=== PATIENT | male | born 1945 | race Caucasian/White ===

== ENCOUNTER → 2017-07-27 | Outpatient (CLI) | payer MEDICARE, BC ==
[~2017-07-27] MED LIST: ATENOLOL25 MG PO; ATORVASTATIN CA40 MG PO; BENICAR HCT 401 EAC1 PO; FLUTICASONE PRO16 GM; GLIPIZIDE10 MG PO; LOSARTAN POTAS100 MG PO; METFORMIN HCL1000 MG; METFORMIN HCL1000 MG PO; MONTELUKAST SOD10 MG PO; OMEPRAZOLE20 M1 PO; PENTASA500 MG PO; RANEXA1000 MG PO; RANEXA500 MG PO; VERAPAMIL ER120 MG PO; XANAX0.5 MG PO; XARELTO20 MG PO; ZOLPIDEM TARTRA10 MG PO; [UNRECOGNIZED DRUG - OTHER]; [UNRECOGNIZED DRUG - OTHER] PO; eliquis PO
--- NOTE | 2017-07-27 16:27 | Diagnostic Imaging Report ---
PROCEDURE: CT CHEST WITHOUT CONTRAST CT scan of the chest WITHOUT intravenous contrast, using standard protocol. TECHNIQUE: The chest was scanned utilizing a multidetector helical scanner from the apex to the level of the adrenal glands. No IV contrast was administered. Coronal and sagittal multiplanar reformations were obtained. COMPARISON: 02/13/2017 INDICATIONS: FOLLOW UP OTHER DISORDERS OF THE LUNG FINDINGS: Lines/tubes: None. Lungs and Airways: Small, calcified granulomas in the right lung (images 50 and 61) are stable. A 4 mm triangular nodule along the right major fissure and 63), is unchanged and likely represents a benign lymph node. A 3 mm nodule in the right lung apex (series 3, image 29) has been present since at least 08/31/2015 and is unchanged. Subtle groundglass opacity in the left upper lobe (series 3, image 38) measures approximately 1.4 x 0.8 cm, unchanged since at least 02/13/2017, possibly unchanged since 08/31/2015. Subtle groundglass opacity, also in the left upper lobe (series 3, image 53) measures 0.7 x 0.6 cm and may correspond to the lesion described on the prior CT. Previously described subpleural groundglass opacity in the superior segment of the left lower lobe (series 3, image 52) measures 8 mm, unchanged. This may represent focal atelectasis. 2 mm left lower lobe nodule (series 3, image 69), unchanged. 3 mm subpleural nodule left lower lobe, also unchanged Linear, subpleural opacities in the left lung apex (series 3, images 24 and 17) are unchanged Pleura: The pleural spaces are clear. Heart and mediastinum: The thyroid gland is normal. No significant mediastinal, hilar or axillary lymphadenopathy is seen. Normal size heart. No pericardial effusion. Coronary artery calcifications and/or stent. Soft tissues: Normal. Abdomen: Limited views of the upper abdomen show no specific abnormality. The patient is status post cholecystectomy. Bones: The visualized bony thorax is within normal limits. IMPRESSION: Very subtle groundglass opacities in the left upper lobe appear stable since at least 02/13/2017. Recommend followup CT in one year to ensure stability. No new or suspicious lung nodules. Dictated by: Patrick Arnold M.D. on 07/27/2017 at 16:28 Electronically approved by: Patrick Arnold M.D. on 07/27/2017 at 16:28
== END | disposition home or self-care (01) ==
LOC: CT 14:55
PROVIDERS: ATTEND Internal Medicine Pulmonary Disease
DX: J98.4 Other disorders of lung (principal); R91.8 Other nonspecific abnormal finding of lung field
CPT/HCPCS: 71250

== ENCOUNTER → 2017-08-13 | Outpatient (CLI) | payer MEDICARE, BC ==
--- NOTE | 2017-08-13 10:49 | Diagnostic Imaging Report ---
PROCEDURE: X-RAY CHEST, TWO VIEWS COMPARISON: 08/16/2014, CT scan of the chest without contrast 08/31/2015. INDICATIONS: PNEUMONIA FINDINGS: Lungs are well-inflated. No focal airspace consolidation, pleural effusion, or pneumothorax. Subcentimeter pulmonary nodules described on comparison CT are not identified by plain radiography. Interval placement of a loop recorder device which projects over the left heart shadow. Normal heart size. No overt pulmonary edema. No acute osseous abnormality. Surgical anchor projects over the right humerus. Surgical clips project over the upper abdomen on the lateral radiograph likely related to cholecystectomy. CONCLUSION: No acute cardiopulmonary abnormality. No consolidative pneumonia. Dictated by: Jeremias Islas M.D. on 08/13/2017 at 10:50 Electronically approved by: Jeremias Islas M.D. on 08/13/2017 at 10:50
== END ==
LOC: RAD 10:18
PROVIDERS: ATTEND Family Medicine
DX: J40 Bronchitis, not specified as acute or chronic (principal)
CPT/HCPCS: 71046

== ENCOUNTER 2018-01-07 23:04 | Emergency (ER) | payer MEDICARE, BC ==
[~2018-01-07] VITALS: Ht 180.3 cm; Wt 104.8 kg
[2018-01-07] MEDS ORDERED: BUPIVACAINE HCL 0.25% 10ML MPF VIAL INJ ONE (23:15)
[2018-01-08 00:22] VITALS: BP 115/77
== END 2018-01-08 00:34 | disposition home or self-care (01) ==
LOC: ER 23:04
DX: S61.211A Laceration without foreign body of left index finger without damage to nail, initial encounter (principal); W26.0XXA Contact with knife, initial encounter; Y92.008 Other place in unspecified non-institutional (private) residence as the place of occurrence of the external cause; Z95.5 Presence of coronary angioplasty implant and graft; Z98.0 Intestinal bypass and anastomosis status
CPT/HCPCS: 99283

== ENCOUNTER 2018-05-11 15:00 | Outpatient (RCR) | payer MEDICARE, BC | END 2018-05-20 | LOC: PT 15:00 | PROVIDERS: ATTEND Otolaryngology | DX: H81.13 Benign paroxysmal vertigo, bilateral (principal); R26.2 Difficulty in walking, not elsewhere classified; R29.6 Repeated falls | CPT/HCPCS: 97112 ×3; 97163; G8990; G8991 ==

== ENCOUNTER 2018-07-05 17:35 | Inpatient (IN) | payer MEDICARE, BC ==
[~2018-07-05] VITALS: Ht 177.8 cm; Wt 110.7 kg
--- OUTSIDE RECORDS SUMMARY | 2018-07-05 17:38 | XMS REPORT | Clinical Summary ---
Author Author [facility] Address Unknown Phone Unavailable Care Team Providers Care Oil Spot Washer Name Role Phone Bunny Lenz MD PCP Allergies Comments Active Allergy Reactions Severity Noted Date Beef Containing Products 12/31/2017 Codeine Itching 12/31/2017 Propoxyphene Itching 12/31/2017 N-Acetaminophen Propoxyphene Itching 12/31/2017 Levofloxacin Swelling 12/31/2017 Does not work Morphine 12/31/2017 Does not work Tramadol Other (See 12/31/2017 Comments) Hydrocodone-Acetaminophen Itching 12/31/2017 Medications End Date Status Medication Sig Dispensed Refills Start Date Active sotalol (BETAPACE) 80 MG Take 80 mg by 0 tablet mouth daily. Active olmesartan (BENICAR) 40 Take 40 mg by 0 MG tablet mouth daily. Active verapamil sustained Take 120 mg 0 release (CALAN-SR) 120 MG by mouth 2 SR tablet (two) times a day. Active ranolazine (RANEXA) 500 Take 1,000 mg 0 MG 12 hr ER tablet by mouth 2 (two) times a day. Active apixaban (ELIQUIS) 5 mg Take 5 mg by 0 tablet mouth daily. Active atorvastatin (LIPITOR) 40 Take 40 mg by 0 MG tablet mouth daily. Active glipiZIDE (GLUCOTROL) 10 Take 10 mg by 0 MG tablet mouth 2 (two) times a day before meals. Active sitaGLIPtin (JANUVIA) 100 Take 100 mg 0 MG tablet by mouth daily. Active omeprazole (PriLOSEC) 40 Take 40 mg by 0 MG capsule mouth daily. Active dicyclomine (BENTYL) 10 Take 10 mg by 0 MG capsule mouth 4 (four) times a day before meals and nightly. Active zolpidem (AMBIEN) 10 mg Take 10 mg by 0 tablet mouth nightly as needed for sleep. Active ALPRAZolam (XANAX) 0.5 MG Take 0.5 mg 0 tablet by mouth 2 (two) times a day. Active Problems Not on file Encounters Care Team Description Date Type Specialty Joshua Gomez MD Cv left heart cath w lv gram cors [91645 (CPT)] 12/31/2017 Surgery Procedural Cardiology Joshua Gomez MD Unstable angina; Coronary artery disease, angina presence unspecified, unspecified vessel or lesion type, unspecified whether [place] or transplanted heart 12/31/2017 Hospital Procedural Cardiology Encounter after 07/04/2017 Social History Date Tobacco Use Types Packs/Day Years Used Former Smoker Smokeless Tobacco: Former User Alcohol Use Drinks/Week oz/Week Comments No Sex Assigned at Date Recorded Not on file Industry Job Start Date Occupation Not on file Not on file Not on file Travel End Travel History Travel Start No recent travel history available. Last Filed Vital Signs Time Taken Vital Sign Reading 12/31/2017 3:15 PM CDT Blood Pressure 122/73 12/31/2017 3:30 PM CDT Pulse 63 12/31/2017 12:33 PM CDT Temperature 36.3 C (97.3 F) 12/31/2017 3:30 PM CDT Respiratory Rate 26 12/31/2017 3:30 PM CDT Oxygen Saturation 94% - Inhaled Oxygen - Concentration 12/31/2017 9:25 AM CDT Weight 106 kg (234 lb 8 oz) 12/31/2017 9:25 AM CDT Height 177.8 cm (5' 10") 12/31/2017 9:25 AM CDT Body Mass Index 33.65 Plan of Treatment Not on file Procedures Comments Procedure Name Priority Date/Time Associated Diagnosis CV LEFT HEART CATH LV Routine 12/31/2017 Unstable angina (HCC) GRAM WITH CORS 12:22 PM CDT Coronary artery disease, angina presence unspecified, unspecified vessel or lesion type, unspecified whether [place] or transplanted heart ECG 12-LEAD STAT 12/31/2017 10:04 AM CDT ESTIMATED GFR STAT 12/31/2017 9:50 AM CDT PROTHROMBIN TIME WITH INR STAT 12/31/2017 9:50 AM CDT BASIC METABOLIC PANEL STAT 12/31/2017 9:50 AM CDT HC COMPLETE BLD COUNT STAT 12/31/2017 W/AUTO DIFF 9:50 AM CDT after 07/04/2017 Results * Cv computer lab para professional procedure (12/31/2017 12:22 PM CDT) Narrative Performed At [facility] Following detailed discussion with the patient and the family, informed consent obtained, ASA assessment, pre-procedural time-out, adequate conscious sedation, and local anesthesia administeredas per protocol, diagnostic left heart cathetherization with selective coronary angiograms and left ventriculogram were performed as indicated by history of coronary atheroslerotic disease, s/p PCI / intracoronary stenting, and unstable angina, abnormal non-invasive functional cardiac evaluation including nuclear stress myocardial perfusion imaging via the right radial arterial approach using 6 lao sheath and Ras catheter with no procedural complication and minimal blood loss (<5 ml) concluded by satisfactory hemostasis achieved by Angio-seal deployment Coronary angiograms demonstrated moderate diffuse epicardial coronary atheroslerosis but otherwise NO angiographically significant focal obstructive lesion noted. The previously stented segments were patent. Preserved left ventricular systolic function with estimated LVEF > 55%. LVEDP was mildly elevated at 18-20 mm Hg The results were informed to, discussed with, and explained in details to the patient and family.All questions and concerns were addressed satisfactorily. Performing Organization Address [facility] Phone Number [facility] [address] [place] [address] * ECG 12 lead (12/31/2017 10:04 AM CDT) Ventricular rate 60 [facility] Atrial rate 60 [facility] ID interval 216 [facility] QRSD interval 96 [facility] QT interval 414 [facility] QTC interval 414 [facility] P axis 1 25 [facility] QRS axis 1 -30 [facility] T wave axis 9 [facility] EKG impression Sinus rhythm with 1st degree [facility] AV block-Left axis deviation-Incomplete right bundle branch block-Abnormal ECG-No previous ECGs available- Performing Organization Address City/[facility] Phone Number [address] [address] * Estimated GFR (12/31/2017 9:50 AM CDT) Estimated GFR 69 mL/min/1.73 m2 [facility] DEPARTMENT OF Comment: PATHOLOGY AND CatergoryUnitsInte GENOMIC MEDICINE rpretation G1 >=90 Normal or high G2 60-89Mildly decreased [id number] Mildly to moderately decreased [id number] Moderately to severely decreased G4 15-29Severely decreased G5 <15Kidney failure The eGFR was calculated using the Chronic Kidney Disease Epidemiology Collaboration (CKD-EPI) equation. Interpretation is based on recommendations of the National Kidney Foundation-Kidney Disease Outcomes Quality Initiative (NKF-KDOQI) published in 2014. Specimen Plasma specimen Performing Organization Address City/State/Zipcode Phone Number [address] [address] PATHOLOGY AND GENOMIC MEDICINE * Prothrombin time with INR (12/31/2017 9:50 AM CDT) Prothrombin time 15.5 (H) 12.0 - 15.0 sec [facility] DEPARTMENT OF PATHOLOGY AND GENOMIC MEDICINE INR 1.2 [facility] DEPARTMENT OF Comment: PATHOLOGY AND The International Normalized GENOMIC MEDICINE Ratio (INR) is a therapeutic monitoring tool for patients who are stable on oral anticoagulant therapy. An INR of 2.0-3.0 is suggested for deep vein thrombosis/pulmonary embolism. Specimen Blood Performing Organization Address City/State/Zipcode Phone Number [address] [address] PATHOLOGY AND GENOMIC MEDICINE * CBC with platelet and differential (12/31/2017 9:50 AM CDT) WBC 9.29 4.50 - 11.00 k/uL [facility] DEPARTMENT OF PATHOLOGY AND GENOMIC MEDICINE RBC 5.16 4.40 - 6.00 m/uL [facility] DEPARTMENT OF PATHOLOGY AND GENOMIC MEDICINE HGB 15.8 14.0 - 18.0 g/dL [facility] DEPARTMENT OF PATHOLOGY AND GENOMIC MEDICINE HCT 46.9 41.0 - 51.0 % [facility] DEPARTMENT OF PATHOLOGY AND GENOMIC MEDICINE MCV 90.9 82.0 - 100.0 fL [facility] DEPARTMENT OF PATHOLOGY AND GENOMIC MEDICINE MCH 30.6 27.0 - 34.0 pg [facility] DEPARTMENT OF PATHOLOGY AND GENOMIC MEDICINE MCHC 33.7 31.0 - 37.0 g/dL [facility] DEPARTMENT OF PATHOLOGY AND GENOMIC MEDICINE RDW - SD 40.0 37.0 - 55.0 fL [facility] DEPARTMENT OF PATHOLOGY AND GENOMIC MEDICINE MPV 9.9 8.8 - 13.2 fL [facility] DEPARTMENT OF PATHOLOGY AND GENOMIC MEDICINE Platelet count 198 150 - 400 k/uL [facility] DEPARTMENT OF PATHOLOGY AND GENOMIC MEDICINE Nucleated RBC 0.00 /100 WBC [facility] DEPARTMENT OF PATHOLOGY AND GENOMIC MEDICINE Neutrophils 60.6 39.0 - 69.0 % [facility] DEPARTMENT OF PATHOLOGY AND GENOMIC MEDICINE Lymphocytes 27.7 25.0 - 45.0 % [facility] DEPARTMENT OF PATHOLOGY AND GENOMIC MEDICINE Monocytes 8.1 0.0 - 10.0 % [facility] DEPARTMENT OF PATHOLOGY AND GENOMIC MEDICINE Eosinophils 2.7 0.0 - 5.0 % [facility] DEPARTMENT OF PATHOLOGY AND GENOMIC MEDICINE Basophils 0.6 0.0 - 1.0 % [facility] DEPARTMENT OF PATHOLOGY AND GENOMIC MEDICINE Immature granulocytes 0.3Comment: "Immature 0.0 - 1.0 % [facility] DEPARTMENT OF granulocytes" (promyelocytes, PATHOLOGY AND myelocytes, metamyelocytes) GENOMIC MEDICINE Specimen Blood Performing Organization Address City/[facility] Phone Number [address] [address] PATHOLOGY AND GENOMIC MEDICINE * Basic metabolic panel (12/31/2017 9:50 AM CDT) Sodium 138 135 - 148 mEq/L [facility] DEPARTMENT OF PATHOLOGY AND GENOMIC MEDICINE Potassium 3.9 3.5 - 5.0 mEq/L [facility] DEPARTMENT OF PATHOLOGY AND GENOMIC MEDICINE Chloride 99 98 - 112 mEq/L [facility] DEPARTMENT OF PATHOLOGY AND GENOMIC MEDICINE CO2 25 24 - 31 mEq/L [facility] DEPARTMENT OF PATHOLOGY AND GENOMIC MEDICINE Anion gap 14@ANIO 7 - 15 mEq/L [facility] DEPARTMENT OF PATHOLOGY AND GENOMIC MEDICINE BUN 17 8 - 23 mg/dL [facility] DEPARTMENT OF PATHOLOGY AND GENOMIC MEDICINE Creatinine 1.07 0.70 - 1.20 mg/dL [facility] DEPARTMENT OF PATHOLOGY AND GENOMIC MEDICINE Glucose 174 (H) 65 - 99 mg/dL [facility] DEPARTMENT OF PATHOLOGY AND GENOMIC MEDICINE Calcium 9.8 8.8 - 10.2 mg/dL [facility] DEPARTMENT OF PATHOLOGY AND GENOMIC MEDICINE Specimen Plasma specimen Performing Organization Address City/[facility]/Zipcode Phone Number [address] [address] PATHOLOGY AND GENOMIC MEDICINE after 07/04/2017 Insurance Payer Benefit Subscriber ID Type Phone Address Plan / Group MEDICARE MEDICARE xxxxxxxxxx Medicare [place] PART A AND B BCBS BCBS OUT xxxxxxxxxxxx PPO OF STATE Advance Directives Patient has advance care planning documents on file. For more information, walt kim contact: Yogi Eastman [address] [place] [address]
--- OUTSIDE RECORDS SUMMARY | 2018-07-05 17:40 | XMS REPORT | Summary of Care ---
Author Author [facility] Organization [facility] Address Unknown Phone Unavailable Encounter [facility] Venkata(FIN) [id number] Date(s): 10/21/17 - 10/22/17 [facility] [address] [place] [address]- Encounter Diagnosis Muscle strain of left wrist (Discharge Diagnosis) - 10/22/17 Blunt head injury (Discharge Diagnosis) - 10/22/17 Accidental fall (Discharge Diagnosis) - 10/22/17 Discharge Disposition: Home or Self Care Attending Physician: Lucie Calero MD Vital Signs Most recent to 1 2 oldest [Reference Range]: Height 177.8 cm (10/21/17 10:38 PM) Temperature Oral 98.3 DegF 98.1 DegF [96.4-99.1 DegF] (10/22/17 1:42 AM) (10/21/17 10:38 PM) Blood Pressure 138/92 mmHg 149/89 mmHg [90-140/60-90 mmHg] (10/22/17 1:42 AM) *HI* (10/21/17 10:38 PM) Respiratory Rate 16 BRMIN 16 BRMIN [14-20 BRMIN] (10/22/17 1:42 AM) (10/21/17 10:38 PM) Peripheral Pulse 78 bpm 81 bpm Rate [60-100 bpm] (10/22/17 1:42 AM) (10/21/17 10:38 PM) Weight 104.545 kg (10/21/17 10:38 PM) Body Mass Index 33.07 m2 (10/21/17 10:38 PM) Problem List Condition Effective Dates Status Health Status Informant Acid Active reflux(Confirmed) Anxiety(Confirmed) Active Arthritis(Confirmed) Active Bronchitis(Confirmed Active ) CAD (coronary artery Resolved disease)(Confirmed) COPD(Confirmed) Resolved COPD - Chronic Active obstructive pulmonary disease(Confirmed) Depression(Confirmed Active ) Diabetes Active mellitus(Confirmed) Diverticulitis(Confi Resolved rmed) Heart Active disease(Confirmed) HT - Active Hypertension(Confirm ed) Hypercholesterolemia Active (Confirmed) Hypertension(Confirm Active ed) Laparoscopic sigmoid Active colectomy(Confirmed) Left lower quadrant 06/10/11 Active pain1 Plain X-ray abdomen 06/10/11 Active abnormal2 Pneumonia(Confirmed) Active Shortness of Active breath(Confirmed) Sleep Resolved apnea(Confirmed) TIA(Confirmed) Resolved 1Data migrated from [employer] on 09/16/14. 2Data migrated from [employer] on 09/16/14. Allergies, Adverse Reactions, Alerts Substance Reaction Severity Status codeine1 Active morphine2 Active Darvon Active Vicodin Rash, NOS Active Darvocet A500 Active HYDROcodone Active 1Data migrated from [employer] on 06/20/15. Originally documented as CODEINE. itchy and nausea 2Data migrated from [employer] on 08/15/14. Originally documented as SIOBHAN. itchy and nausea Medications ibuprofen 600 mg, Route: PO, Drug form: TAB, ONCE, Dosing Weight 104.545, kg, Priority: ST AT, Start date: 10/21/17 23:50:00 CDT, Stop date: 10/21/17 23:50:00 CDT Start Date: 10/21/17 Stop Date: 10/22/17 Status: Completed tramadol 50 mg oral tablet 50 mg, Route: PO, Drug form: TAB, ONCE, Dosing Weight 104.545, kg, Priority: STA T, Start date: 10/22/17 1:34:00 CDT, Stop date: 10/22/17 1:34:00 CDT Start Date: 10/22/17 Stop Date: 10/22/17 Status: Completed Ultram 50 mg oral tablet 50 mg=1 tab, PO, Q4H, PRN pain, X 3 day, # 20 tab, 0 Refill(s) Start Date: 10/22/17 Stop Date: 10/25/17 Status: Ordered Results No data available for this section Immunizations No data available for this section Procedures Procedure Date Related Diagnosis Body Site Status Cataract extraction and insertion of 02/22/10 Completed intraocular lens Knee reoperations 08/30/09 Completed Knee joint operation 06/21/09 Completed Bursa operation1 Completed Cardiac catheterization Completed Cholecystectomy Completed Colon operation Completed Foot joint operations Completed Nasal operation Completed Rotator cuff repair2 Completed Tendon operation Completed 1left knee 2right Social History Social History Type Response Smoking Status Former smoker; Exposure to Tobacco Smoke None; Cigarette Smoking Last 365 Days No; Reg Smoking Cessation Counseling No entered on: 10/21/17 Assessment and Plan No data available for this section
--- OUTSIDE RECORDS SUMMARY | 2018-07-05 17:40 | XMS REPORT | Continuity of Care Document ---
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 [facility] FALL Active 03/15/2018 [facility] Muscle strain of left wrist 10/22/2017 10/25/2017 [facility] Blunt head injury 10/22/2017 10/25/2017 [facility] Accidental fall 10/22/2017 10/25/2017 [facility] LEFT WRIST INJURY Active 10/21/2017 [facility] J98.4 OTHER DISORDER OF LUNG Active 08/27/2015 [facility] PAROXYSMAL ATRIAL FIBRILLATION; CHEST PA Active 06/07/2015 [facility] PAROXYSMAL AFIB Active 06/07/2015 [facility] Coagulopathy Active 04/09/2015 Problem 01/08/2018 [facility] GI bleed Active 04/09/2015 Problem 01/08/2018 [facility] 411.1/414.01 Active 05/24/2014 [facility] V12.72 Active 10/13/2013 [facility] UNK Active 10/13/2013 [facility] COPD EXACERBATION Active 08/01/2013 [facility] 466.0 - ACUTE BRONCHITI Active 03/29/2013 [facility] [place] RECURRENT DIVERTICULITIS 562.11/ CPT 45812 Active 06/11/2011 [facility] RECURRENT DIVERTICULITIS Active 06/11/2011 [facility] Left lower quadrant pain<sup>1</sup> Active 06/10/2011 Problem 10/25/2017 Data migrated from [employer] on 09/16/14. [facility] X-ray abdomen abnormal<sup>2</sup> Active 06/10/2011 Problem 10/25/2017 Data migrated from [employer] on 09/16/14. [facility] DIVERTICULITIS Active 06/02/2011 [facility] OTHER Active 06/02/2011 [facility] ABD PAIN Active 02/14/2011 [facility] Acid reflux Active Problem 10/25/2017 [facility] Anxiety Active Problem 10/25/2017 [facility] Arthritis Active Problem 10/25/2017 [facility] Bronchitis Active Problem 10/25/2017 [facility] CAD (<span ID="[id number]</span>) Resolved Problem 10/25/2017 [facility] COPD Resolved Problem 10/25/2017 [facility] COPD - Chronic obstructive pulmonary disease Active Problem 10/25/2017 [facility] Depression Active Problem 10/25/2017 [facility] Diabetes mellitus Active Problem 10/25/2017 [facility] Diverticulitis Resolved Problem 10/25/2017 [facility] Heart disease Active Problem 10/25/2017 [facility] HT - Hypertension Active Problem 10/25/2017 [facility], [facility] [place],[facility] Hypercholesterolemia Active Problem 10/25/2017 [facility] Hypertension Active Problem 10/25/2017 [facility] Laparoscopic sigmoid colectomy Active Problem 10/25/2017 [facility] [place],[facility] Pneumonia Active Problem 10/25/2017 [facility] Shortness of breath Active Problem 10/25/2017 [facility] Sleep apnea Resolved Problem 10/25/2017 [facility] TIA Resolved Problem 10/25/2017 [facility] Cataract Resolved Problem 06/30/2015 [facility] Diverticulitis Active Problem 06/30/2015 [facility] [place],[facility] colon resection Resolved Problem 06/15/2014 [facility] Diverticulitis Active Problem 06/15/2014 [facility] [place],[facility] left knee surgery Resolved Problem 06/15/2014 [facility] nasal surgery Resolved Problem 06/15/2014 [facility] right foot fx Resolved Problem 06/15/2014 [facility] right rotator cuff repair Resolved Problem 06/15/2014 [facility] Diverticulitis Active Problem 06/24/2011 [facility] HT - Hypertension Active Problem 06/24/2011 [facility] Laparoscopic sigmoid colectomy Active Problem 06/24/2011 [facility] DIVERTICULITIS OF COLON Active [facility] CHR AIRWAY OBSTRUCT NEC Active [facility] INTERMED CORONARY SYND Active [facility] CRNRY ATHRSCL NATVE VSSL Active [facility] PAROXYSMAL ATRIAL FIBRILLATION Active [facility] CHEST PAIN, UNSPECIFIED Active [facility] TRAUM SUBDR HEM W LOC OF UNSP DURATION, Active [facility] Medications Medication Details Route Status Patient Instructions Ordering Provider Order Date Source tramadol hydrochloride 50 MG Oral Tablet 50 mg, Route: PO, Drug form: TAB, ONCE, Dosing Weight 104.545, kg, Priority: STAT, Start date: 10/22/17 1:34:00 CDT, Stop date: 10/22/17 1:34:00 CDT Inactive 10/22/2017 [facility] tramadol hydrochloride 50 MG Oral Tablet [Ultram] 50 mg=1 tab, PO, Q4H, PRN pain, X 3 day, # 20 tab, 0 Refill(s) Active 10/22/2017 [facility] Ibuprofen 600 mg, Route: PO, Drug form: TAB, ONCE, Dosing Weight 104.545, kg, Priority: STAT, Start date: 10/21/17 23:50:00 CDT, Stop date: 10/21/17 23:50:00 CDT No Longer Active 10/22/2017 [facility] Omeprazole 40 mg, Route: PO, Drug form: DRC, Daily, Dosing Weight 107.273, kg, Start date: 06/27/15 9:00:00, Duration: 30 day, Stop date: 07/26/15 9:00:00 No Longer Active 06/27/2015 [facility] Microzide 12.5 mg, 1 cap, Route: PO, Drug form: CAP, Daily, Start date: 06/27/15 9:00:00, Duration: 30 day, Stop date: 07/26/15 9:00:00Notes: (Same as: Microzide) With food. Inactive 06/27/2015 [facility] Benicar 20 mg, 1 tab, Route: PO, Drug form: TAB, Daily, Start date: 06/27/15 9:00:00, Duration: 30 day, Stop date: 07/26/15 9:00:00 Inactive 06/27/2015 [facility] Losartan 100 mg, 1 tab, Route: PO, Drug form: TAB, Daily, Dosing Weight 107.273, kg, Start date: 06/27/15 9:00:00, Duration: 30 day, Stop date: 07/26/15 9:00:00Notes: (Same as: Cozaar) Inactive 06/27/2015 [facility] Hydrochlorothiazide 12.5 MG / Olmesartan medoxomil 20 MG Oral Tablet 1 tab, Route: PO, Drug Form: TAB, Dosing Weight 107.273, kg, Daily, Start date: 06/27/15 9:00:00, Duration: 30 day, Stop date: 07/26/15 9:00:00 No Longer Active 06/27/2015 [facility] Atenolol 25 MG Oral Tablet 25 mg, 1 tab, Route: PO, Drug form: TAB, Daily, Dosing Weight 107.273, kg, Start date: 06/27/15 9:00:00, Duration: 30 day, Stop date: 07/26/15 9:00:00Notes: (Same As:Tenormin) Inactive 06/27/2015 [facility] Aspirin 81 MG Enteric Coated Tablet 81 mg, 1 tab, Route: PO, Drug form: ECTAB, Daily, Dosing Weight 107.273, kg, Start date: 06/27/15 9:00:00, Duration: 30 day, Stop date: 07/26/15 9:00:00Notes: Do not crush or chew. (Same As: Ecotrin) Inactive 06/27/2015 [facility] Alprazolam 0.25 MG Oral Tablet [Xanax] 0.25 mg, 1 tab, Route: PO, Drug form: TAB, Daily, Dosing Weight 107.273, kg, Start date: 06/27/15 9:00:00, Duration: 30 day, Stop date: 07/26/15 9:00:00Notes: With food or milk (Same as: Xanax) Inactive 06/27/2015 [facility] Magnesium Oxide 400 mg, Route: PO, Drug form: TAB, ONCE, Dosing Weight 107.273, kg, Start date: 06/27/15 5:30:00, Stop date: 06/27/15 5:30:00 Inactive 06/27/2015 [facility] Verapamil 240 mg, 1 tab, Route: PO, Drug form: ERTAB, Q12H, Dosing Weight 107.273, kg, Start date: 06/26/15 21:00:00, Duration: 30 day, Stop date: 07/26/15 9:00:00Notes: Do not crush or chew.; "Avoid grapefruit and grapefruit juice" (Same As: Calan SR, Isoptin SR) No Longer Active 06/27/2015 [facility] montelukast 10 mg, 1 tab, Route: PO, Drug form: TAB, Bedtime, Dosing Weight 107.273, kg, Start date: 06/26/15 21:00:00, Duration: 30 day, Stop date: 07/25/15 21:00:00Notes: (Same as:Singulair) No Longer Active 06/27/2015 [facility] atorvastatin 40 mg, 1 tab, Route: PO, Drug form: TAB, Bedtime, Dosing Weight 107.273, kg, Start date: 06/26/15 21:00:00, Duration: 30 day, Stop date: 07/25/15 21:00:00Notes: (Same as: Lipitor) No Longer Active 06/27/2015 [facility] 12 HR ranolazine 500 MG Extended Release Tablet [Ranexa] 500 mg, 1 tab, Route: PO, Drug form: TAB, BID, Dosing Weight 107.273, kg, Start date: 06/26/15 17:00:00, Duration: 30 day, Stop date: 07/26/15 9:00:00Notes: Same as Ranexa "Do Not Crush" No Longer Active 06/26/2015 [facility] Carafate 1 gm, 10 mL, Route: PO, Drug form: SUSP, BID, Dosing Weight 107.273, kg, Start date: 06/26/15 17:00:00, Duration: 30 day, Stop date: 07/26/15 9:00:00Notes: Enteral feeds may interfere with the absorption of this medication. Shake well. Take 1 hr before or 2 hrs after antacids, dairy pdt, minerals & meals. (Same As: Carafate) No Longer Active 06/26/2015 [facility] Metformin hydrochloride 1000 MG Oral Tablet 1,000 mg, 1 tab, Route: PO, Drug form: TAB, BID, Dosing Weight 107.273, kg, Start date: 06/26/15 17:00:00, Duration: 30 day, Stop date: 07/26/15 9:00:00Notes: Same as Glucophage No Longer Active 06/26/2015 [facility] Pentasa 500 mg, 1 cap, Route: PO, Drug form: ERCAP, BID, Dosing Weight 107.273, kg, Start date: 06/26/15 17:00:00, Duration: 30 day, Stop date: 07/26/15 9:00:00 No Longer Active 06/26/2015 [facility] Glipizide 10 MG Oral Tablet 10 mg, 1 tab, Route: PO, Drug form: TAB, BID, Dosing Weight 107.273, kg, Start date: 06/26/15 17:00:00, Duration: 30 day, Stop date: 07/26/15 9:00:00Notes: (Same as: Glucotrol) 30 min before meals. No Longer Active 06/26/2015 [facility] Flonase 0.05 mg/inh nasal spray 2 spray, Route: NASAL, Drug Form: SPRY, Dosing Weight 107.273, kg, BID, Start date: 06/26/15 17:00:00, Duration: 30 day, Stop date: 07/26/15 9:00:00Notes: (Same as: Flonase) No Longer Active 06/26/2015 [facility] Eliquis 2.5 mg, 1 tab, Route: PO, Drug form: TAB, BID, Dosing Weight 107.273, kg, Start date: 06/26/15 17:00:00, Duration: 30 day, Stop date: 07/26/15 9:00:00Notes: Same as: Eliquis No Longer Active 06/26/2015 [facility] pantoprazole 40 mg, 1 tab, Route: PO, Drug form: ECTAB, Before Dinner, Dosing Weight 107.273, kg, Start date: 06/26/15 16:30:00, Duration: 30 day, Stop date: 07/25/15 16:30:00Notes: Tablet should not be chewed or crushed. (Same as: Protonix) No Longer Active 06/26/2015 [facility] Sucralfate 100 MG/ML Oral Suspension 1 gm=10 mL, PO, BID, # 200 mL, 0 Refill(s) On Hold 06/26/2015 [facility] pantoprazole 40 mg oral enteric coated tablet 40 mg=1 tab, PO, Before Dinner, # 30 tab, 0 Refill(s) On Hold 06/26/2015 [facility] Dilaudid 0.5 mg, 0.25 mL, Route: IVP, Drug form: INJ, Q2H, Dosing Weight 107.273, kg, PRN Pain Score 7-10, Start date: 06/26/15 11:30:00, Duration: 30 day, Stop date: 07/26/15 11:29:00Notes: Same as: Dilaudid No Longer Active 06/26/2015 [facility] zolpidem 10 mg, 2 tab, Route: PO, Drug form: TAB, Bedtime, Dosing Weight 107.273, kg, PRN Sleep, Start date: 06/26/15 11:01:00, Duration: 30 day, Stop date: 07/26/15 11:00:00Notes: (Same As: Ambien) No Longer Active 06/26/2015 [facility] Flonase 0.05 mg/inh nasal spray 2 spray, NASAL, BID, # 16 gm, 0 Refill(s) Active 06/26/2015 [facility] losartan 100 mg oral tablet 100 mg=1 tab, PO, Daily, # 30 tab, 0 Refill(s) Active 06/26/2015 [facility] mesalamine 500 MG Extended Release Capsule [Pentasa] 500 mg=1 cap, PO, BID, # 120 cap, 0 Refill(s) Active 06/26/2015 [facility] 12 HR ranolazine 500 MG Extended Release Tablet [Ranexa] 500 mg=1 tab, PO, BID, # 60 tab, 0 Refill(s) Active 06/26/2015 [facility] apixaban 2.5 MG Oral Tablet [Eliquis] 2.5 mg=1 tab, PO, BID, 0 Refill(s) Active 06/26/2015 [facility] montelukast 10 mg oral tablet 10 mg=1 tab, PO, Bedtime, # 30 tab, 0 Refill(s) Active 06/26/2015 [facility] normal saline 0.9% IV 1,000 mL 1,000 mL, Rate: 100 ml/hr, Infuse over: 10 hr, Route: IV, Dosing Weight 107.273 kg, Total Volume: 1,000, Start date: 06/26/15 5:48:00, Duration: 30 day, Stop date: 07/26/15 5:47:00 Inactive 06/26/2015 [facility] Olmesartan/Hydrochlorothiazide (Benicar Hct 40-25 Mg Tablet) 1 Each Tablet, 1 Mg Oral Daily Active 06/25/2015 [facility] Ranolazine (Ranexa) 1,000 Mg Tab.er.12h, 1000 Mg Oral Twice A Day Active 05/21/2015 [facility] Metformin Hcl 1,000 Mg Tablet, 1000 Mg Oral Twice A Day Active 04/11/2015 [facility] Rivaroxaban (Xarelto) 20 Mg Tablet, 20 Mg Oral Bedtime Active 04/11/2015 [facility] aspirin 81 mg, Route: PO, Drug form: ECTAB, Daily, Dosing Weight 101.364, kg, Start date: 06/14/14 9:00:00, Duration: 30 day, Stop date: 07/13/14 9:00:00 No Longer Active 06/14/2014 [facility] Aspirin 81 MG Enteric Coated Tablet 81 mg, PO, Daily, 0 Refill(s) Active 06/13/2014 [facility] Effient See Instructions, 75 mg, 0 Refill(s)Special Instructions: 75 mg Active 06/13/2014 [facility] Hydrochlorothiazide 12.5 MG / Olmesartan medoxomil 20 MG Oral Tablet 1 tab, PO, Daily, # 30 tab, 0 Refill(s) Active 06/13/2014 [facility] Metformin hydrochloride 1000 MG Oral Tablet 1,000 mg=1 tab, PO, BID, # 30 tab, 0 Refill(s) Active 11/08/2013 [facility] Sodium Chloride 0.154 MEQ/ML Injectable Solution 1,000 mL, Rate: 25 ml/hr, Infuse over: 40 hr, Route: IV, Dosing Weight 104.545 kg, Total Volume: 1,000, Start date: 11/08/13 8:11:00, Duration: 30 day, Stop date: 12/08/13 8:10:00 Inactive 11/08/2013 [facility] zolpidem 10 mg oral tablet 10 mg=1 tab, PO, Bedtime, for sleep, 0 Refill(s) Active 11/03/2013 [facility] Ranitidine 150 MG Oral Tablet [Zantac] 150 mg=1 tab, PO, Bedtime, # 60 tab, 0 Refill(s) Active 11/03/2013 [facility] doxycycline hyclate 100 mg oral tablet 100 mg=1 tab, PO, Q12H, # 14 tab, 0 Refill(s) Active 08/06/2013 [facility] Levofloxacin 500 MG Oral Tablet [Levaquin] 500 mg=1 tab, PO, Q24H, # 7 tab, 0 Refill(s) Active 08/06/2013 [facility] Kayexalate 15 gm, 60 mL, Route: PO, Drug form: SUSP, ONCE, Dosing Weight 107.273, kg, Start date: 08/04/13 13:32:00, Stop date: 08/04/13 13:32:00Notes: (sodium polystyrene sulfonate 15 gm/60 ml JOSE MANUEL) Shake well before use. (Same as: Kayexalate, SPS) Inactive 08/04/2013 [facility] normal saline 0.9% IV 1,000 mL 1,000 mL, Rate: 125 ml/hr, Infuse over: 8 hr, Route: IV, Dosing Weight 107.273 kg, Total Volume: 1,000, Start date: 08/04/13 10:52:00, Duration: 30 day, Stop date: 09/03/13 10:51:00 No Longer Active 08/04/2013 [facility] Protonix 40 mg, 1 tab, Route: PO, Drug form: ECTAB, BID, Start date: 08/02/13 21:00:00, Duration: 30 day, Stop date: 09/01/13 17:00:00Notes: Tablet should not be chewed or crushed. (Same as: Protonix) No Longer Active 08/03/2013 [facility] Alprazolam 0.25 MG Oral Tablet [Xanax] 0.25 mg, 1 tab, Route: PO, Drug form: TAB, Daily, Dosing Weight 107.273, kg, Start date: 08/02/13 21:00:00, Duration: 30 day, Stop date: 08/31/13 21:00:00Notes: With food or milk (Same as: Xanax) No Longer Active 08/03/2013 [facility] Xopenex 1.25 mg, 3 mL, Route: NEB, Drug form: SOLN, PRN, Dosing Weight 107.273, kg, PRN Respiratory Protocol, Start date: 08/02/13 17:18:00, Duration: 30 day, Stop date: 09/01/13 17:17:00Notes: SEE RT DOCUME NTATION (Same as:Xopenex) Non-Formulary No Longer Active 08/02/2013 [facility] Protonix 40 mg, 1 tab, Route: PO, Drug form: ECTAB, QNoon, Start date: 08/02/13 12:00:00, Duration: 30 day, Stop date: 08/31/13 12:00:00Notes: Tablet should not be chewed or crushed. (Same as: Protonix) Inactive 08/02/2013 [facility] Dextrose 50% in Water IV 50 mL, Route: IVP, Start date: 08/02/13 11:09:00, Duration: 30 day, Stop date: 09/01/13 11:08:00, PRN Blood Glucose Results No Longer Active 08/02/2013 [facility] glucagon 1 mg, Route: IM, Drug form: PDR/INJ, PRN, PRN Blood Glucose Results, Start date: 08/02/13 11:09:00, Duration: 30 day, Stop date: 09/01/13 11:08:00 No Longer Active 08/02/2013 [facility] NovoLOG FlexPen 12 unit, 0.12 mL, Route: SUB-Q, Drug form: SOLN, Sliding Scale, PRN Blood Glucose Results, Start date: 08/02/13 11:09:00, Duration: 30 day, Stop date: 09/01/13 11:08:00Notes: Roll in palms of hands gent ly; Do not shake vigorously. (Same as: NovoLOG) "single patient use only" Stable for 28 days at room temperature. Expires in days from Date No Longer Active 08/02/2013 [facility] NovoLOG FlexPen 4 unit, 0.04 mL, Route: SUB-Q, Drug form: SOLN, Sliding Scale, PRN Blood Glucose Results, Start date: 08/02/13 11:08:00, Duration: 30 day, Stop date: 09/01/13 11:07:00Notes: Roll in palms of hands ge ntly; Do not shake vigorously. (Same as: NovoLOG) "single patient use only" Stable for 28 days at room temperature. Expires in days from Date No Longer Active 08/02/2013 [facility] NovoLOG FlexPen 2 unit, 0.02 mL, Route: SUB-Q, Drug form: SOLN, Sliding Scale, PRN Blood Glucose Results, Start date: 08/02/13 11:07:00, Duration: 30 day, Stop date: 09/01/13 11:06:00Notes: Roll in palms of hands ge ntly; Do not shake vigorously. (Same as: NovoLOG) "single patient use only" Stable for 28 days at room temperature. Expires in days from Date No Longer Active 08/02/2013 [facility] Ondansetron 4 mg, 2 mL, Route: IVP, Drug form: INJ, Q6H, Dosing Weight 107.273, kg, PRN as needed for nausea/vomiting, Start date: 08/02/13 9:20:00, Duration: 30 day, Stop date: 09/01/13 9:19:00Notes: (Same as: Zofran) No Longer Active 08/02/2013 [facility] Atenolol 25 MG Oral Tablet 1 tab, Route: PO, BID, Dosing Weight 107.273, kg, Start date: 08/02/13 9:00:00, Duration: 30 day, Stop date: 08/31/13 17:00:00 No Longer Active 08/02/2013 [facility] Omeprazole 40 mg, Route: PO, Drug form: ECCAP, Daily, Dosing Weight 107.273, kg, Start date: 08/02/13 9:00:00, Duration: 30 day, Stop date: 08/31/13 9:00:00 Inactive 08/02/2013 [facility] atorvastatin 40 mg, 1 tab, Route: PO, Drug form: TAB, Daily, Dosing Weight 107.273, kg, Start date: 08/02/13 9:00:00, Duration: 30 day, Stop date: 08/31/13 9:00:00Notes: (Same as: Lipitor) No Longer Active 08/02/2013 [facility] Metformin hydrochloride 1000 MG Oral Tablet 1,000 mg, 2 tab, Route: PO, Drug form: TAB, BID-Meals, Dosing Weight 107.273, kg, Start date: 08/02/13 8:00:00, Duration: 30 day, Stop date: 08/31/13 17:00:00Notes: (Same as: Glucophage) Take with meal No Longer Active 08/02/2013 [facility] Glipizide 10 mg, 1 tab, Route: PO, Drug form: TAB, BID- Before Meals, Dosing Weight 107.273, kg, Start date: 08/02/13 7:30:00, Duration: 30 day, Stop date: 08/31/13 16:30:00Notes: (Same as: Glucotrol) 30 min before meals. No Longer Active 08/02/2013 [facility] verapamil extended release 240 mg, 1 tab, Route: PO, Drug form: ERTAB, QPM, Dosing Weight 107.273, kg, Start date: 08/01/13 23:00:00, Duration: 30 day, Stop date: 08/31/13 21:00:00Notes: Do not crush or chew.; "Avoid grapefruit and grapefruit juice" (Same As: Calan SR, Isoptin SR) No Longer Active 08/02/2013 [facility] Atenolol 25 MG Oral Tablet 25 mg, 1 tab, Route: PO, Drug form: TAB, BID, Dosing Weight 107.273, kg, Start date: 08/01/13 23:00:00, Duration: 30 day, Stop date: 08/31/13 21:00:00Notes: (Same As:Tenormin) No Longer Active 08/02/2013 [facility] clopidogrel 75 mg, 1 tab, Route: PO, Drug form: TAB, Bedtime, Dosing Weight 107.273, kg, Start date: 08/01/13 23:00:00, Duration: 30 day, Stop date: 08/31/13 21:00:00Notes: (Same As: Plavix) No Longer Active 08/02/2013 [facility] Ambien 10 mg, 1 tab, Route: PO, Drug form: TAB, Bedtime, Dosing Weight 107.273, kg, PRN Insomnia, Start date: 08/01/13 21:56:00, Duration: 30 day, Stop date: 08/31/13 21:55:00Notes: (Same As: Ambien) No Longer Active 08/02/2013 [facility] Robitussin DM Sugar Free 10 mL, Route: PO, Drug Form: LIQ, Dosing Weight 107.273, kg, Q6H, PRN Cough, Start date: 08/01/13 21:55:00, Duration: 30 day, Stop date: 08/31/13 21:54:00Notes: Non-Formulary Drug. (Same as: Diabetic Tussin DM) No Longer Active 08/02/2013 [facility] albuterol 0.083% inhalation solution 2.49 mg, 3 mL, Route: NEB, Drug form: SOLN, RQ6H, Start date: 08/01/13 20:00:00, Duration: 30 day, Stop date: 08/31/13 14:00:00Notes: SEE RT DOCUMENTATION (Same as: Proventil) No Longer Active 08/02/2013 [facility] Zithromax 500 mg, 250 mL, Route: IVPB, Drug form: PDR/INJ, [id number], Start date: 08/01/13 20:00:00, Duration: 30 day, Stop date: 08/30/13 20:00:00Notes: Same as: Zithromax No Longer Active 08/02/2013 [facility] Rocephin + Sodium Chloride 0.9% IV 100 mL 1 gm, Route: IVPB, [id number], Start date: 08/01/13 20:00:00, Duration: 30 day, Stop date: 08/30/13 20:00:00Notes: (Same As: Rocephin). Use with 100ml NS mini-bag PLUS and infuse over 30 min No Longer Active 08/02/2013 [facility] methylPREDNISolone 40 mg, 1 mL, Route: IV, Drug form: INJ, Q8Hnow, Start date: 08/01/13 20:00:00, Duration: 30 day, Stop date: 08/31/13 12:00:00Notes: (Same as:Solu-MEDROL, A-Methapred) No Longer Active 08/02/2013 [facility] Glipizide 10 MG Oral Tablet 10 mg=1 tab, PO, BID, 0 Refill(s) Active 08/01/2013 [facility] clopidogrel 75 mg oral tablet 75 mg=1 tab, PO, Daily, 0 Refill(s) Active 08/01/2013 [facility] Atenolol 25 MG Oral Tablet 25 mg=1 tab, PO, BID, 0 Refill(s) Active 08/01/2013 [facility] atorvastatin 40 mg oral tablet 40 mg=1 tab, PO, Daily, 0 Refill(s) Active 08/01/2013 [facility] Metformin hydrochloride 1000 MG Oral Tablet 1,000 mg=1 tab, PO, BID, 0 Refill(s) No Longer Active 08/01/2013 [facility] verapamil 240 mg oral tablet, extended release 240 mg=1 tab, PO, QAM, 0 Refill(s) Active 08/01/2013 [facility] omeprazole 40 mg oral delayed release capsule 40 mg=1 cap, PO, Daily, 0 Refill(s) Active 08/01/2013 [facility] Effient 10 mg, 1 tab, Route: PO, Drug form: TAB, Q-M-W-F, Start date: 06/23/11 9:00:00, Duration: 30 day, Stop date: 07/21/11 9:00:00 PO No Longer Active Eliebessy 06/23/2011 [facility] tramadol 100 mg oral tablet, extended release 100 mg, 1 tab, PO, Daily, 30 tab, Substitution Allowed, [facility] glipiZIDE 20 mg, 2 tab, Route: PO, Drug form: TAB, QAM, Start date: 06/22/11 9:00:00, Duration: 30 day, Stop date: 07/21/11 9:00:00 PO [facility] omeprazole 40 mg, Route: PO, Drug form: DRC, Daily, Start date: 06/22/11 9:00:00, Duration: 30 day, Stop date: 07/21/11 9:00:00 PO [facility] Benicar 40 mg, 2 tab, Route: PO, Drug form: TAB, Daily, Start date: 06/22/11 9:00:00, Duration: 30 day, Stop date: 07/21/11 9:00:00 PO No Longer Active Voloyiannis 06/22/2011 [facility] nortriptyline 20 mg, 2 cap, Route: PO, Drug form: CAP, Daily, Start date: 06/22/11 9:00:00, Duration: 30 day, Stop date: 07/21/11 9:00:00 PO No Longer Active Voloyiannis 06/22/2011 [facility] metFORmin 1,000 mg, 2 tab, Route: PO, Drug form: ERTAB, Daily, Start date: 06/22/11 9:00:00, Duration: 30 day, Stop date: 07/21/11 9:00:00 PO No Longer Active Voloyiannis 06/22/2011 [facility] Xanax 0.25 mg oral tablet 0.25 mg, 1 tab, Route: PO, Drug form: TAB, Daily, Start date: 06/22/11 9:00:00, Duration: 30 day, Stop date: 07/21/11 9:00:00 PO No Longer Active Voloyiannis 06/22/2011 [facility] simvastatin 20 mg, 1 tab, Route: PO, Drug form: TAB, Bedtime, Start date: 06/21/11 21:00:00, Duration: 30 day, Stop date: 07/20/11 21:00:00 PO No Longer Active [facility] 06/22/2011 [facility] verapamil 120 mg, 1 tab, Route: PO, Drug form: ERTAB, Q12H, Start date: 06/21/11 17:00:00, Duration: 30 day, Stop date: 07/21/11 9:00:00 PO No Longer Active Voloyiannis 06/21/2011 [facility] atenolol 25 mg, 1 tab, Route: PO, Drug form: TAB, BID, Start date: 06/21/11 17:00:00, Duration: 30 day, Stop date: 07/21/11 9:00:00 PO No Longer Active Voloyiannis 06/21/2011 [facility] Protonix 40 mg, 1 tab, Route: PO, Drug form: ECTAB, Before Dinner, Start date: 06/21/11 16:30:00, Duration: 30 day, Stop date: 07/20/11 16:30:00 PO No Longer Active [facility]iannis 06/21/2011 [facility] tramadol 50 mg oral tablet 50 mg, 1 tab, Route: PO, Drug form: TAB, Q6H, PRN Pain, Start date: 06/21/11 16:03:00, Duration: 30 day, Stop date: 07/21/11 16:02:00 PO No Longer Active [facility]iannis 06/21/2011 [facility] hydromorphone 1 mg, 1 mL, Route: IV, Drug form: SOLN, Q2H, PRN Pain, Start date: 06/21/11 16:00:00, Duration: 30 day, Stop date: 07/21/11 15:59:00 IV No Longer Active Voloyiannis 06/21/2011 [facility] Restoril 30 mg, 2 cap, Route: PO, Drug form: CAP, Bedtime, PRN Sleep, Start date: 06/21/11 15:20:00, Duration: 30 day, Stop date: 07/21/11 15:19:00 PO No Longer Active [facility]nis 06/21/2011 [facility] Ambien 10 mg, Route: PO, Drug form: TAB, QPM, PRN Sleep, Start date: 06/21/11 14:53:00, Duration: 30 day, Stop date: 07/21/11 14:52:00 PO No Longer Active [facility]nis 06/21/2011 [facility] ketorolac 15 mg, 1 mL, Route: IV, Drug form: INJ, Q6H, Start date: 06/20/11 12:00:00, Duration: 72 hr, Stop date: 06/23/11 6:00:00 IV No Longer Active [facility]iannis 06/20/2011 [facility] Lovenox 40 mg, 0.4 mL, Route: SUB-Q, Drug form: INJ, [id number], Start date: 06/20/11 10:00:00, Duration: 30 day, Stop date: 07/19/11 10:00:00 SUB-Q No Longer Active [facility]iannis 06/20/2011 [facility] ketorolac 30 mg/mL injectable solution 30 mg, 1 mL, Route: IV, Drug form: INJ, ONCE, Start date: 06/20/11 9:34:00, Stop date: 06/20/11 9:34:00 IV No Longer Active [facility] 06/20/2011 [facility] famotidine 20 mg, 2 mL, Route: IVP, Drug form: INJ, Q12H, Start date: 06/19/11 21:00:00, Duration: 30 day, Stop date: 07/19/11 9:00:00 IVP No Longer Active [facility] 06/20/2011 [facility] Entereg 12 mg, Route: PO, BID, Start date: 06/19/11 17:00:00, Duration: 30 day, Stop date: 07/19/11 9:00:00 PO No Longer Active [facility] 06/19/2011 [facility] ondansetron 4 mg, Route: IVP, ONCE, PRN Nausea & Vomiting, Start date: 06/19/11 13:37:00 IVP No Longer Active [facility] 06/19/2011 [facility] acetaminophen-oxycodone 325 mg-5 mg oral tablet 2 tab, Route: PO, Drug Form: TAB, Q4H, PRN Pain Score 7-10, Start date: 06/19/11 13:37:00, Duration: 30 day, Stop date: 07/19/11 13:36:00 PO No Longer Active [facility] 06/19/2011 [facility] naloxone 0.04 mg, Route: IVP, Q2MIN, PRN Narcotic Reversal, Start date: 06/19/11 13:37:00, Duration: 8 doses or times, Stop date: Limited # of times IVP No Longer Active [facility] 06/19/2011 [facility] flumazenil 0.2 mg, Route: IVP, PRN, PRN Benzodiazepine Reversal, Initial dose, Start date: 06/19/11 13:37:00, Duration: 30 day, Stop date: 07/19/11 14:36:00 IVP No Longer Active [facility] 06/19/2011 [facility] fentanyl 25 microgram, Route: IVP, Q5Min, PRN Pain Score 4-6, Start date: 06/19/11 13:37:00, Duration: 4 doses or times, Stop date: Limited # of times IVP No Longer Active [facility] 06/19/2011 [facility] hydromorphone 0.5 mg, Route: IVP, Q5Min, PRN Pain Score 4-6, Start date: 06/19/11 13:37:00, Duration: 5 doses or times, Stop date: Limited # of times IVP No Longer Active [facility] 06/19/2011 [facility] nalbuphine 2 mg, 0.2 mL, Route: IVP, Drug form: INJ, Q2H, PRN Itching, Start date: 06/19/11 13:22:00, Duration: 5 doses or times, Stop date: Limited # of times IVP No Longer Active [facility] 06/19/2011 [facility] hydromorphone 0.2 mg/mL [employer] (6 mg/30 mL) INJ Syringe 30 mL 6 mg 6 mg, 30 mL, Route: IV, [employer] Dose: 0.2 mg, [employer] Lockout: 10 minutes, Continuous Basal Rate: 0 mg, 4 Hour Limit (In MG): 6, Drug Form: INJ, Continuous, Pain, Start date: 06/19/11 13:22:00, Stop date: 07/19/11 14:21:00 IV No Longer Active [facility] 06/19/2011 [facility] naloxone 0.04 mg, 0.1 mL, Route: IVP, Drug form: INJ, Q2MIN, PRN Narcotic Reversal, Start date: 06/19/11 13:22:00, Duration: 30 day, Stop date: 07/19/11 14:21:00 IVP No Longer Active [facility] 06/19/2011 [facility] Saline Flush 0.9% 5 ml, Route: IVP, Drug Form: INJ, PRN, PRN Line Flush, Start date: 06/19/11 13:22:00, Duration: 30 day, Stop date: 07/19/11 14:21:00 IVP No Longer Active [facility] 06/19/2011 [facility] D5W 1/2NS + KCL 20mEq/L 1000ml (Premix) 1,000 mL 1,000 mL, Rate: 50 ml/hr, Infuse over: 20 hr, Route: IV, Total Volume: 1,000, Start date: 06/19/11 13:22:00, Stop date: 07/19/11 13:21:00 IV No Longer Active [facility]nis 06/19/2011 [facility] NS + KCL 20mEq/L 1000ml (Premix) 1,000 mL 1000 mL 1,000 mL, Rate: 125 ml/hr, Infuse over: 8 hr, Route: IV, Total Volume: 1,000, Start date: 06/19/11 13:22:00, Duration: 30 day, Stop date: 07/19/11 13:21:00 IV No Longer Active [facility] 06/19/2011 [facility] acetaminophen 650 mg, 2 tab, Route: PO, Drug form: TAB, Q4H, PRN Pain Score 1-3, Start date: 06/19/11 13:22:00, Duration: 30 day, Stop date: 07/19/11 13:21:00 PO No Longer Active [facility] 06/19/2011 [facility] temazepam 15 mg, 1 cap, Route: PO, Drug form: CAP, Bedtime, PRN Insomnia, Start date: 06/19/11 13:22:00, Duration: 30 day, Stop date: 07/19/11 13:21:00 PO No Longer Active [facility] 06/19/2011 [facility] diphenhydrAMINE 25 mg, 1 tab, Route: PO, Drug form: TAB, Bedtime, PRN Insomnia, Start date: 06/19/11 13:22:00, Duration: 30 day, Stop date: 07/19/11 13:21:00 PO No Longer Active [facility] 06/19/2011 [facility] promethazine 12.5 mg, 0.5 mL, Route: IM, Drug form: INJ, Q4H, PRN Nausea & Vomiting, Start date: 06/19/11 13:22:00, Duration: 30 day, Stop date: 07/19/11 13:21:00 IM No Longer Active [facility] 06/19/2011 [facility] ondansetron 4 mg, 2 mL, Route: IVP, Drug form: INJ, Q6H, PRN Nausea & Vomiting, Start date: 06/19/11 13:22:00, Duration: 30 day, Stop date: 07/19/11 13:21:00 IVP No Longer Active [facility] 06/19/2011 [facility] Dextrose 50% Syringe 25 gm, 50 mL, Route: IVP, Drug Form: INJ, PRN, PRN Blood Glucose Results, Start date: 06/19/11 13:20:00, Duration: 30 day, Stop date: 07/19/11 14:19:00 IVP No Longer Active [facility] 06/19/2011 [facility] glucagon 1 mg, Route: IM, Drug form: PDR/INJ, PRN, PRN Blood Glucose Results, Start date: 06/19/11 13:20:00, Duration: 30 day, Stop date: 07/19/11 14:19:00 IM No Longer Active [facility]nis 06/19/2011 [facility] lidocaine 1% 0.5 mL, Route: SUB-Q, ONCALL, Start date: 06/19/11 9:00:00, Duration: 1 doses or times SUB-Q No Longer Active Jone 06/19/2011 [facility] Invanz 1 gm, Route: IVPB, ONCALL, Start date: 06/19/11 9:00:00, Duration: 30 day, Stop date: 07/19/11 9:59:00 IVPB No Longer Active [facility] 06/19/2011 [facility] Entereg 12 mg, 1 cap, Route: PO, Drug form: CAP, BID, Start date: 06/19/11 9:00:00, Duration: 14 doses or times, Stop date: 06/25/11 17:00:00 PO No Longer Active [facility] 06/19/2011 [facility] alvimopan 12 mg, Route: PO, Drug form: CAP, ONCE, Start date: 06/19/11 8:58:00, Stop date: 06/19/11 8:58:00 PO No Longer Active Vol[facility]iannis 06/19/2011 [facility] Lactated Ringers Injection IV 1,000 mL 1,000 mL, Rate: 25 ml/hr, Infuse over: 40 hr, Route: IV, Total Volume: 1,000, Start date: 06/19/11 8:57:00, Duration: 30 day, Stop date: 07/19/11 8:56:00 IV No Longer Active J[facility] 06/19/2011 [facility] tramadol 50 mg oral tablet 50 mg, 1 tab, Route: PO, Drug form: TAB, ONCE, Priority: NOW, Start date: 06/05/11 10:42:00, Stop date: 06/05/11 10:42:00 PO No Longer Active [facility] 06/05/2011 [facility] Ultram 50 mg oral tablet 50 mg, 1 tab, Route: PO, Drug form: TAB, Q4H, PRN Pain, Start date: 06/05/11 10:39:00, Duration: 30 day, Stop date: 07/05/11 10:38:00 PO No Longer Active [facility] 06/05/2011 [facility] Ultram 50 mg oral tablet 50 mg, 1 tab, PO, Q4H, PRN, 60 tab, for pain, Substitution Allowed, TAB PO Active [facility] 06/05/2011 [facility] Flagyl 500 mg oral tablet 500 mg, 1 tab, PO, Q8H, 42 tab, Substitution Allowed, TAB PO Active [facility] 06/05/2011 [facility] Cipro 500 mg oral tablet 500 mg, 1 tab, PO, Q12H, 28 tab, Substitution Allowed, TAB PO Active [facility] 06/05/2011 [facility] Protonix 40 mg oral enteric coated tablet 40 mg, 1 tab, PO, Before Dinner, 30 tab, Substitution Allowed, ECTAB PO Active [facility] 06/05/2011 [facility] [place] 10/325 oral tablet 2 tabs, PO, Q6H, PRN, 60 tab, as needed for pain, Substitution Allowed, Maintenance, TAB PO No Longer Active [facility] 06/05/2011 [facility] [place] 10/325 oral tablet Route: PO, Q6H, PRN as needed for pain, Start date: 06/05/11 10:26:00, Duration: 30 day, Stop date: 07/05/11 10:25:00 PO No Longer Active [facility] 06/05/2011 [facility] Effient 10 mg, 1 tab, Route: PO, Drug form: TAB, Q-M-W-F, Start date: 06/04/11 9:00:00, Duration: 30 day, Stop date: 07/02/11 9:00:00 PO No Longer Active [facility] 06/04/2011 [facility] simvastatin 20 mg, 1 tab, Route: PO, Drug form: TAB, Bedtime, Start date: 06/03/11 21:00:00, Duration: 30 day, Stop date: 07/02/11 21:00:00 PO No Longer Active [facility] 06/04/2011 [facility] Protonix 40 mg, 1 tab, Route: PO, Drug form: ECTAB, Before Dinner, Start date: 06/03/11 16:30:00, Duration: 30 day, Stop date: 07/02/11 16:30:00 PO No Longer Active [facility] 06/03/2011 [facility] atenolol 25 mg, 1 tab, Route: PO, Drug form: TAB, Q12H, Start date: 06/03/11 9:00:00, Duration: 30 day, Stop date: 07/02/11 21:00:00 PO No Longer Active [facility] 06/03/2011 [facility] Lovenox 40 mg, 0.4 mL, Route: SUB-Q, Drug form: INJ, [id number], Start date: 06/03/11 9:00:00, Duration: 30 day, Stop date: 07/02/11 9:00:00 SUB-Q No Longer Active [facility] 06/03/2011 [facility] nortriptyline 20 mg, 2 cap, Route: PO, Drug form: CAP, Daily, Start date: 06/03/11 9:00:00, Duration: 30 day, Stop date: 07/02/11 9:00:00 PO No Longer Active [facility] 06/03/2011 [facility] Benicar 40 mg, 2 tab, Route: PO, Drug form: TAB, Daily, Start date: 06/03/11 9:00:00, Duration: 30 day, Stop date: 07/02/11 9:00:00 PO No Longer Active [facility] 06/03/2011 [facility] omeprazole 40 mg, Route: PO, Drug form: DRC, Daily, Start date: 06/03/11 9:00:00, Duration: 30 day, Stop date: 07/02/11 9:00:00 PO No Longer Active [facility] 06/03/2011 [facility] verapamil 120 mg, 1 tab, Route: PO, Drug form: ERTAB, Q12H, Start date: 06/03/11 9:00:00, Duration: 30 day, Stop date: 07/02/11 21:00:00 PO No Longer Active [facility] 06/03/2011 [facility] Protonix 40 mg, Route: IVP, Drug form: INJ, BID, Start date: 06/03/11 9:00:00, Duration: 30 day, Stop date: 07/02/11 17:00:00 IVP No Longer Active [facility] 06/03/2011 [facility] Dilaudid 1 mg, 0.5 mL, Route: IV, Drug form: INJ, Q2H, PRN Pain, Start date: 06/03/11 7:36:00, Duration: 30 day, Stop date: 07/03/11 7:35:00 IV No Longer Active [facility] 06/03/2011 [facility] Xanax 0.25 mg oral tablet 0.25 mg, 1 tab, Route: PO, Drug form: TAB, Daily, PRN as needed for anxiety, Start date: 06/03/11 7:25:00, Duration: 30 day, Stop date: 07/03/11 7:24:00 PO No Longer Active [facility] 06/03/2011 [facility] Ambien 10 mg, 1 tab, Route: PO, Drug form: TAB, QPM, PRN as needed for sleep, Start date: 06/03/11 7:24:00, Duration: 30 day, Stop date: 07/03/11 7:23:00 PO No Longer Active [facility] 06/03/2011 [facility] Phenergan 12.5 mg, 0.5 mL, Route: IVPB, Q4H, PRN Nausea & Vomiting, Start date: 06/03/11 1:36:00, Duration: 30 day, Stop date: 07/03/11 1:35:00 IVPB No Longer Active [facility] 06/03/2011 [facility] Dilaudid 2 mg, 1 mL, Route: IVP, Drug form: INJ, Q4H, PRN Pain, Start date: 06/03/11 1:36:00, Duration: 30 day, Stop date: 07/03/11 1:35:00 IVP No Longer Active [facility] 06/03/2011 [facility] hydromorphone 1 mg, 1 mL, Route: IVP, Drug form: SOLN, Q4H, PRN Pain, Start date: 06/03/11 1:35:00, Duration: 30 day, Stop date: 07/03/11 1:34:00 IVP No Longer Active [facility] 06/03/2011 [facility] Flagyl 500 mg, 100 mL, Route: IVPB, Drug form: INJ, [id number], Start date: 06/03/11 1:00:00, Duration: 30 day, Stop date: 07/02/11 19:00:00 IVPB No Longer Active [place] 06/03/2011 [facility] Cipro 400 mg, 200 mL, Route: IVPB, Drug form: INJ, [id number], Start date: 06/03/11 1:00:00, Duration: 30 day, Stop date: 07/02/11 13:00:00 IVPB No Longer Active [place] 06/03/2011 [facility] glucagon 1 mg, Route: IM, Drug form: PDR/INJ, PRN, PRN Blood Glucose Results, Start date: 06/03/11 0:21:00, Duration: 30 day, Stop date: 07/03/11 1:20:00 IM No Longer Active [place] 06/03/2011 [facility] Dextrose 50% Syringe 12.5 gm, 25 mL, Route: IVP, Drug Form: INJ, PRN, PRN Blood Glucose Results, Start date: 06/03/11 0:21:00, Duration: 30 day, Stop date: 07/03/11 1:20:00 IVP No Longer Active [place] 06/03/2011 [facility] insulin aspart 10 unit, 0.1 mL, Route: SUB-Q, Drug form: SOLN, TID-Before Meals, PRN Blood Glucose Results, Start date: 06/03/11 0:21:00, Duration: 30 day, Stop date: 07/03/11 0:20:00 SUB- Q No Longer Active [place] 06/03/2011 [facility] ondansetron 4 mg, 2 mL, Route: IVP, Drug form: INJ, ONCE, PRN Nausea & Vomiting, Start date: 06/03/11 0:18:00 IVP No Longer Active [place] 06/03/2011 [facility] Sodium Chloride 0.9% IV 1,000 mL 1,000 mL 1,000 mL, Rate: 75 ml/hr, Infuse over: 13.3 hr, Route: IV, Total Volume: 1,000, Start date: 06/03/11 0:18:00, Duration: 30 day, Stop date: 07/03/11 0:17:00 IV No Longer Active [place] 06/03/2011 [facility] Stadol 1 spray, NASAL, Q8H, PRN, as needed for pain, Substitution Allowed NASAL Active 06/03/2011 [facility] Stadol 2 spray, NASAL, Q8H, PRN, as needed for pain, Substitution Allowed NASAL Active 06/03/2011 [facility] hyoscyamine 0.125 mg oral tablet, disintegrating 0.125 mg, 1 tab, PO, Q6H, PRN, as needed, Substitution Allowed PO Active 06/03/2011 [facility] omeprazole 40 mg oral delayed release capsule 40 mg, 1 cap, PO, Daily, 30 cap, Substitution Allowed PO Active [facility] 06/03/2011 [facility] nortriptyline 10 mg oral capsule 20 mg, 2 cap, PO, Daily, Substitution Allowed PO Active [facility] 06/03/2011 [facility] Benicar 40 mg oral tablet 40 mg, 1 tab, PO, Daily, 30 tab, Substitution Allowed, TAB PO Active [facility] 06/03/2011 [facility] simvastatin 20 mg, 1 tab, PO, Bedtime, 30 tab, Substitution Allowed PO Active [facility] 06/03/2011 [facility] Glumetza 1000 mg oral tablet, extended release 1 tab, PO, Daily, 30 tab, Substitution Allowed Active 06/03/2011 [facility] verapamil 120 mg oral tablet, extended release 120 mg, 1 tab, PO, BID, Substitution Allowed PO Active [facility] 06/03/2011 [facility] Zosyn 3.375 gm, Route: IVPB, ONCE, Priority: STAT, Start date: 06/02/11 22:31:00, Stop date: 06/02/11 22:31:00 [facility] hydromorphone 1 mg, Route: IVP, ONCE, Priority: STAT, Start date: 06/02/11 22:13:00, Stop date: 06/02/11 22:13:00 IVP No Longer Active [place] 06/03/2011 [facility] morphine Sulfate 4 mg, Route: IVP, ONCE, Priority: STAT, Start date: 06/02/11 19:26:00, Stop date: 06/02/11 19:26:00 IVP No Longer Active [facility] 06/03/2011 [facility] ondansetron 4 mg, Route: IVP, ONCE, Priority: STAT, Start date: 06/02/11 19:26:00, Stop date: 06/02/11 19:26:00 IVP No Longer Active [facility] 06/03/2011 [facility] Saline Flush 0.9% 5 ml, Route: IVP, Drug Form: INJ, PRN, PRN Line Flush, Start date: 06/02/11 19:26:00, Duration: 24 hr, Stop date: 06/03/11 19:25:00 [facility] [place] 5/325 oral tablet 1 tab, PO, Q4H, PRN, 10 tab, for pain, Substitution Allowed, Maintenance, TAB PO Active [place] 02/15/2011 [facility] Dilaudid 1 mg, 1 mL, Route: IV, Drug form: SOLN, ONCE, Priority: STAT, Start date: 02/14/11 20:00:00, Stop date: 02/14/11 20:00:00 [facility] ondansetron 4 mg, 2 mL, Route: IVP, Drug form: INJ, ONCE, Priority: STAT, Start date: 02/14/11 17:33:00, Stop date: 02/14/11 17:33:00 IVP No Longer Active [facility] 02/14/2011 [facility] hydromorphone 1 mg, 1 mL, Route: IVP, Drug form: SOLN, ONCE, Priority: STAT, Start date: 02/14/11 17:33:00, Stop date: 02/14/11 17:33:00 IVP No Longer Active [place] 02/14/2011 [facility] influenza virus vaccine, inactivated 0.5 ml, Route: IM, Drug Form: INJ, ONCALL, Start date: 02/29/08 4:55:45, Stop date: 03/30/08 4:40:45(Same as: Fluzone) No Longer Active [facility] 02/29/2008 [facility] [place] Alprazolam (Xanax) 0.5 Mg Tablet Bedtime Active [facility] Atenolol 25 Mg Tablet Bedtime Active [facility] Atorvastatin Calcium 40 Mg Tablet Daily Active [facility] Eliquis Twice A Day Active [facility] Fluticasone Propionate 16 Gm [place].susp Twice A Day Active [facility] Glipizide 10 Mg Tablet Twice A Day Active [facility] Losartan Potassium 100 Mg Tablet Daily Active [facility] Mesalamine (Pentasa) 500 Mg Capcr Twice A Day Active [facility] Metformin Hcl 1,000 Mg Tablet Active [facility] Montelukast Sodium 10 Mg Tablet Bedtime Active [facility] Omeprazole 20 Mg Tablet. As Needed Active [facility] Ranolazine (Ranexa) 500 Mg Tabsr Twice A Day Active [facility] Verapamil Hcl (Verapamil Er) 120 Mg Cap24h.pel Twice A Day Active [facility] Zolpidem Tartrate 10 Mg Tablet Bedtime as needed for Insomnia Active [facility] Allergies, Adverse Reactions, Alerts Substance Category Reaction Severity Reaction type Status Date Reported Comments Source Propoxyphene ITCH Mild Allergy to Substance Active 06/20/2009 [facility] codeine<sup>1</sup> Assertion Drug allergy Active 10/13/2013 Data migrated from [employer] on 06/20/15. Originally documented as CODEINE. itchy and nausea [facility] morphine<sup>2</sup> Assertion Drug allergy Active 10/13/2013 Data migrated from [employer] on 08/15/14. Originally documented as SIOBHAN. itchy and nausea [facility] Morphine HIVES Unknown Allergy to Substance Active 01/07/2018 [facility] Codeine HIVES Unknown Allergy to Substance Active 01/07/2018 [facility] Hydrocodone HIVES Unknown Allergy to Substance Active 01/07/2018 [facility] Acetaminophen HIVES Unknown Allergy to Substance Active 01/07/2018 [facility] Tramadol HIVES Unknown Allergy to Substance Active 01/07/2018 [facility] Levofloxacin DONT FEEL GOOD Unknown Allergy to Substance Active 01/07/2018 [facility] Darvon drug allergy Allergy Active [facility] Vicodin drug allergy Rash, NOS Allergy Active [facility] Darvocet A500 drug allergy Allergy Active [facility] HYDROcodone Assertion Drug allergy Active [facility] codeine drug allergy Allergy Active [facility] Immunizations Immunization Date Given Site Status Last Updated Comments Source influenza virus vaccine, inactivated 03/01/2008 Not Given [facility], OPID [place] Results Order Name Results Value Reference Range Date Interpretation Comments Source Brain wo contrast CT Brain wo contrast CT EXAM: CT BRAIN WITHOUT CONTRAST DATE: 04/06/2018 13:24 SHIP JOINER INDICATION: - pt is scheduled w/ Trauma clinic on 04/08 @ 11:15am COMPARISON: CT brain without contrast 03/17/2018. TECHNIQUE: Routine axial images of the brain were obtained without contrast. Coronal and sagittal reformatted images are provided. IV contrast: None. FINDINGS: Continued expected evolution/decrease of the extra-axial hemorrhages along the right frontal convexity and left temporal parietal convexity. Expected evolution of the right inferior frontal lobe contusions which are evolving into areas of hypodensity with resolution of associated acute blood products. No new intracranial hemorrhage or mass effect. The grant-white interfaces are otherwise preserved. No new parenchymal abnormality. Mild generalized cerebral volume loss. No hydrocephalus. New mucosal thickening in the left ethmoid, sphenoid and frontal sinuses. Chronic postsurgical changes in the paranasal sinuses. IMPRESSION: Continued expected evolution of extra-axial hemorrhages in right inferior frontal contusions. No adverse interval change. No new intracranial abnormality. New mucosal thickening in the left ethmoid, sphenoid and frontal sinuses. Chronic postsurgical changes in the paranasal sinuses. 04/06/2018 - - Read by: Claribel Tse MD Dictated Date/time: 04/06/18 15:07 Electronically Signed by: Claribel Tse MD 04/06/18 15:17 FINAL REPORT [facility] Chest Pulmonary Embolism CTA Chest Pulmonary Embolism CTA EXAM: CTA CHEST WITH CONTRAST DATE: 03/17/2018 9:01 AM SHIP JOINER INDICATION: - r/o PE COMPARISON: 06/21/2015 TECHNIQUE: Volumetric CT acquisition of the chest, during pulmonary arterial phase, after intravenous contrast. Axial, sagittal, coronal, and oblique MIP reconstructions are created at the acquisition workstation. IV Contrast: 93 mL of Visipaque 320 DLP: 749 mGy-cm FINDINGS: Lines and tubes: None. Lower neck: The visualized portion of the lower neck and thyroid gland are unremarkable. Heart and Mediastinum: No cardiomegaly. No pericardial effusion. RV to LV ratio is less than 1. Stent is seen in the proximal portion of the left anterior descending coronary artery. Few scattered calcific plaques are seen along the 3 coronary arteries. Measurements and appearance of the thoracic aorta are normal. At the same level where the ascending aorta measures 3.1 cm the pulmonary trunk measures 2.4 cm. There is no pulmonary embolus. Pleura: No pleural effusions. No pneumothorax. Lymph Nodes: There is no hilar, mediastinal, axillary or internal mammary lymphadenopathy. Lungs: Mild bilateral dependent atelectatic changes are noted. No consolidative changes. Few scattered tiny calcific lung nodules are seen bilaterally. Trachea: Unremarkable. Upper abdomen: Postcholecystectomy surgical clips are noted. Bones and soft tissues: No acute osseous abnormalities. No destructive focal osseous lesions identified. IMPRESSION: 1. No pulmonary embolism. No CT evidence of right heart strain. 2. 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 Mild bilateral dependent atelectatic changes. Otherwise, lungs are clear. 3. Mild calcific plaques are seen along the 3 coronary arteries. Status post proximal left anterior descending stent placement. RECOMMENDATIONS: None. 03/17/2018 - - Read by: Manuel Wright MD Dictated Date/time: 03/17/18 12:22 Electronically Signed by: Manuel Wright MD 03/17/18 12:34 FINAL REPORT [facility] Brain wo contrast CT Brain wo contrast CT EXAM: CT BRAIN WITHOUT CONTRAST DATE: 03/17/2018 11:52 AM INDICATION: Traumatic head injury, intracranial hemorrhages COMPARISON: CT brain from 03/16/2018 TECHNIQUE: Noncontrast axial imaging of the brain was acquired from the vertex to the skull base. Coronal and sagittal reformatted images were generated. DLP: 1073mGy-cm FINDINGS: Stable right frontal extra-axial hemorrhage as well as a small amount of additional scattered areas of subarachnoid hemorrhage. Stable right inferior frontal contusions. No new parenchymal abnormality. No hydrocephalus or mass effect. Remainder of the exam is unchanged. IMPRESSION: Evolving extra-axial hemorrhages and right inferior frontal contusions. No new intracranial abnormality. 03/17/2018 - - Read by: Nestor Pop MD Dictated Date/time: 03/17/18 13:21 Electronically Signed by: Nestor Pop MD 03/17/18 13:25 FINAL REPORT [facility] Brain wo contrast CT Brain wo contrast CT EXAMINATION: CT head without contrast DATE: 03/16/2018 INDICATION: Intracranial hemorrhage. FINDINGS: Noncontrast CT images of the head are compared to a study formed 6 hours earlier the same day. Over the interval, there is been no important change: Extra-axial hemorrhages over the right frontal convexity, and left posterior temporal region are again noted. There is been some accumulation of subarachnoid blood at the posterior margin of the left sylvian fissure. There is no mass effect or midline shift. Nondisplaced fracture of the occipital bone again noted. IMPRESSION: Stable traumatic extra-axial hemorrhages. 03/16/2018 - - Read by: Ryan Pagan MD Dictated Date/time: 03/16/18 15:07 Electronically Signed by: Ryan Pagan MD 03/16/18 15:09 FINAL REPORT [facility] Brain wo contrast CT Brain wo contrast CT EXAMINATION: CT head without contrast DATE: 03/16/2018 INDICATION: Subarachnoid hemorrhage. FINDINGS: Noncontrast CT images of the head are compared to an exam obtained 03/15/2018 at an outside institution prior to transfer. Over the interval, there is been no important change. Small amounts of extra- axial hemorrhage along the right frontal convexity and left temporoparietal junction are again noted without progression. There is no mass effect or midline shift. There is no brain parenchymal abnormality. Nondisplaced fracture of the midline occipital bone again noted. IMPRESSION: Stable extra-axial hemorrhages. [place] SECTION: Neuro 03/16/2018 - - This report was dictated by a Position Description Manager/Fellow/Physician Membership Coordinator. I have personally reviewed the images as well as the interpretation and agree with the findings. Read by: Omar Salter MD Resident/Fellow/Physician Membership Coordinator: Omar Salter MD Dictated Date/time: 03/16/18 02:48 Electronically Signed by: Ryan Pagan MD 03/16/18 09:20 FINAL REPORT [facility] Spine cervical wo contrast CT Spine cervical wo contrast CT Clinical Indication: Neck trauma. Concern for cervical spine injury. Comparison: None Technique: Multi-detector CT imaging of the cervical spine is performed. Coronal and sagittal reconstructions were obtained. CT imaging performed at this location utilizes radiation dose optimization techniques which include one or more of the following: -Automated exposure control -Adjustment of the mA and/or kV according to patient size -Use of iterative reconstruction technique CT Radiation Dose DLP 1017.62 mGy-cm FINDINGS: ALIGNMENT AND GENERAL ASSESSMENT: There is no acute fracture or malalignment of the cervical spine. No atlantooccipital or atlantoaxial disassociation is seen. A mild levocurvature of the cervical spine is identified, which is most likely due to positioning. There is a partially visualized, nondepressed fracture of the occipital bone. DISK SPACES AND SOFT TISSUES: There is no prevertebral soft tissue swelling. There are multilevel degenerative changes throughout the cervical spine with anterior and posterior osteophytes, disk bulges as well as bilateral uncovertebral and facet hypertrophy. There is spinal canal stenosis which is mild at C2-C3, moderate at C3-C4, moderate at C4-C5, moderate at C5-C6 and moderate at C6-C7. There is right-sided neural foraminal narrowing, which is moderate at C2-C3, mild at C3-C4, moderate at C4-C5, mild at C5-C6 and severe at C6-C7. There is left-sided neural foraminal narrowing, which is moderate at C2-C3, mild at C3-C4, severe at C4-C5, moderate at C5-C6 and severe at C6-C7. MRI is the gold standard to assess for disk disease. VISUALIZED LUNG APICES: Unremarkable. CT myelogram or MRI of the cervical spine may be performed, if there is further concern. IMPRESSION: Degenerative changes within the cervical spine without acute acute fracture or malalignment. Partially visualized occipital bone fracture. SL: [id number] 03/15/2018 - - Read by: Ben Dumas MD Dictated Date/time: 03/15/18 23:17 Electronically Signed by: Ben Dumas MD 03/15/18 23:33 FINAL REPORT [facility] Chest 1view DX Chest 1view DX Clinical Indication: Trauma. Concern for chest injury. Comparison: Chest radiographs 08/01/2013. FINDINGS: The frontal chest radiograph shows normal lung volumes. There is no focal lung consolidation. No evidence of pleural effusion or pneumothorax is seen. The cardiomediastinal contours are normal for the age of the patient with aortic tortuosity. A cardiac device projects over the left chest. There are degenerative changes in the spine. IMPRESSION: No chest radiographic evidence of acute cardiopulmonary disease. SL: ALISSA 03/15/2018 - - Read by: Ben Dumas MD Dictated Date/time: 03/15/18 22:17 Electronically Signed by: Ben Dumas MD 03/15/18 22:18 FINAL REPORT [facility] contrast CT Brain wo contrast CT CT head without contrast Clinical Indication: Headache after injury. Comparison: 10/22/2017. TECHNIQUE: CT images were obtained from the foramen magnum to the vertex without the use of intravenous contrast on a multidetector CT. CT imaging was performed with exposure control parameters to reduce radiation dose. Coronal and sagittal reconstructions were obtained. CT radiation dose DLP: 1024.99 mGy-cm FINDINGS: Acute subdural hematoma is seen along the right frontal convexity measuring 8 mm in greatest transverse dimension. Trace acute subdural hemorrhage is seen in the left frontal convexity. Trace acute subarachnoid hemorrhage in the left temporal lobe. Nondepressed acute fracture of the left occipital bone. No significant mass effect or midline shift. Ventricles and sulci are of normal size and configuration. Visualized paranasal sinuses and mastoid air cells are clear. IMPRESSION: Acute subdural hematomas along bilateral frontal convexities, right greater than left. Trace acute subarachnoid hemorrhage in the left temporal lobe. Nondepressed acute fracture of the left occipital bone. Findings were communicated to the Emergency Room physician, Dr. Parekh, at 11:15 PM on 03/15/2018 TREE: SGRADHA 03/15/2018 - - Read by: Shelby Calix MD Dictated Date/time: 03/15/18 23:11 Electronically Signed by: Shelby Calix MD 03/15/18 23:20 FINAL REPORT [facility] contrast CT Brain wo contrast CT Addendum: I have reviewed the case and agree with the findings. SL: LAURA Clinical Indication: Fall from standing position, possible head injury Comparison: 02/23/2012 and 02/24/2012 TECHNIQUE: CT images were obtained from the foramen magnum to the vertex without the use of intravenous contrast on a multidetector CT. Coronal and sagittal reconstructions were obtained. CT radiation dose DLP: 981.84 mGy-cm FINDINGS: BRAIN PARENCHYMA: Mild generalized brain atrophy. Normal grant-white interfaces, sulci and gyri. No focal mass lesions on this noncontrast head CT. No mass effect, midline shift or edema. No intra-axial or extra-axial fluid collections, intraventricular or intraparenchymal hemorrhage. Pineal, brainstem, cerebellum and skull base regions appear unremarkable. No abnormal findings in the sella. Mild atherosclerotic calcifications of the bilateral carotid siphons an bilateral vertebral arteries. VENTRICLES: Lateral ventricles, third and fourth ventricles appear unremarkable. Basilar cisterns are normal. ORBITS, MASTOIDS AND PARANASAL SINUSES: -Visualized orbits/retro-orbital spaces are within normal limits. - Mild chronic opacification of the ethmoid air cells. Left sphenoid sinus small air-fluid level. The mastoid air cells are clear. SKULL: No acute osseous abnormalities. No focal or asymmetric scalp swelling. If there is further concern for intracranial pathology or acute stroke, MRI of the brain may be performed for complete assessment. IMPRESSION: 1. No acute intracranial abnormality. No mass, hemorrhage, or subacute stroke. 2. Mild generalized brain atrophy. 3. Trace left sphenoid acute sinusitis. SL: [id number] 10/22/2017 - - Read by: Rosendo Moreno MD Dictated Date/time: 10/22/17 01:12 Electronically Signed by: Rosendo Moreno MD 10/22/17 01:14 FINAL REPORT - - Read by: Dann Toro MD Dictated Date/time: 10/22/17 01:03 Electronically Signed by: Dann Toro MD 10/22/17 01:07 FINAL REPORT [facility] Wrist 2 views DX Wrist 2 views DX Clinical Indication: Wrist pain. Comparison: None FINDINGS: The AP, and lateral views of the left wrist show no acute fracture or dislocation. There is normal alignment of the carpal bones, with normal scapholunate, lunotriquetral and capitate-lunate alignment. The carpal bone alignment arcs appear unremarkable. The radiocarpal joint is unremarkable. The distal radial ulnar joint is unremarkable. The carpometacarpal joints are unremarkable. Vascular calcifications are seen. There is no soft tissue swelling or joint effusion. There are no radio-opaque foreign bodies. If there is further concern, followup radiographs or MRI of the wrist may be performed for complete assessment. IMPRESSION: No acute fracture or dislocation of the left wrist. SL: ALISSA 10/22/2017 - - Read by: Ben Dumas MD Dictated Date/time: 10/22/17 00:45 Electronically Signed by: Ben Dumas MD 10/22/17 00:47 FINAL REPORT [facility] HEMATOLOGY Hgb 12.2 g/dL 14.0 - 18.0 06/27/2015 [facility] HEMATOLOGY Hct 37.0 % 42.0 - 54.0 06/27/2015 [facility] CHEM PANEL Magnesium Lvl 1.7 mg/dL 1.8 - 2.4 06/27/2015 [facility] CHEM PANEL eGFR 65 mL/min/1.73m2 06/27/2015 Result Comment: The eGFR is calculated using the CKD-EPI formula. In most young, healthy individuals the eGFR will be >90 mL/min/1.73m2. The eGFR declines with age. An eGFR of 60-89 may be normal in some populations, particularly the elderly, for whom the CKD-EPI formula has not been extensively validated. Use of the eGFR is not recommended in the following populations: Individuals with unstable creatinine concentrations, including patients and those with serious co-morbid conditions. Patients with extremes in muscle mass or diet. The data above are obtained from the National Kidney Disease Education Program (NKDEP) which additionally recommends that when the eGFR is used in patients with extremes of body mass index for purposes of drug dosing, the eGFR should be multiplied by the estimated BMI. [facility] CHEM PANEL CO2 28 meq/L 24 - 32 06/27/2015 [facility] CHEM PANEL AGAP 10.9 meq/L 10.0 - 20.0 06/27/2015 [facility] CHEM PANEL Calcium Lvl 7.8 mg/dL 8.5 - 10.5 06/27/2015 [facility] CHEM PANEL Creatinine Lvl 1.14 mg/dL 0.50 - 1.40 06/27/2015 [facility] CHEM PANEL BUN 12 mg/dL 7 - 22 06/27/2015 [facility] CHEM PANEL Glucose Lvl 117 mg/dL 70 - 99 06/27/2015 [facility] CHEM PANEL Potassium Lvl 3.9 meq/L 3.5 - 5.1 06/27/2015 Result Comment: Specimen Slightly Hemolyzed. [facility] CHEM PANEL Chloride Lvl 104 meq/L 95 - 109 06/27/2015 [facility] CHEM PANEL Sodium Lvl 139 meq/L 135 - 145 06/27/2015 [facility] HEMATOLOGY POC Activated Clotting Time 164 s 06/26/2015 [facility] BLOOD BANK RESULTS Antibody Scrn Negative (06/26/15 5:49 AM) 06/26/2015 [facility] BLOOD BANK RESULTS ABO/Rh O NEG 06/26/2015 [facility] ELECTROLYTES AGAP 12.8 meq/L 10.0 - 20.0 06/26/2015 [facility] ELECTROLYTES eGFR 62 mL/min/1.73m2 06/26/2015 Result Comment: The eGFR is calculated using the CKD-EPI formula. In most young, healthy individuals the eGFR will be >90 mL/min/1.73m2. The eGFR declines with age. An eGFR of 60-89 may be normal in some populations, particularly the elderly, for whom the CKD-EPI formula has not been extensively validated. Use of the eGFR is not recommended in the following populations: Individuals with unstable creatinine concentrations, including patients and those with serious co-morbid conditions. Patients with extremes in muscle mass or diet. The data above are obtained from the National Kidney Disease Education Program (NKDEP) which additionally recommends that when the eGFR is used in patients with extremes of body mass index for purposes of drug dosing, the eGFR should be multiplied by the estimated BMI. [facility] ELECTROLYTES Calcium Lvl 8.5 mg/dL 8.5 - 10.5 06/26/2015 [facility] ELECTROLYTES CO2 26 meq/L 24 - 32 06/26/2015 [facility] ELECTROLYTES Chloride Lvl 104 meq/L 95 - 109 06/26/2015 [facility] ELECTROLYTES BUN 18 mg/dL 7 - 22 06/26/2015 [facility] ELECTROLYTES Glucose Lvl 127 mg/dL 70 - 99 06/26/2015 [facility] ELECTROLYTES Sodium Lvl 139 meq/L 135 - 145 06/26/2015 [facility] ELECTROLYTES Creatinine Lvl 1.19 mg/dL 0.50 - 1.40 06/26/2015 [facility] ELECTROLYTES Potassium Lvl 3.8 meq/L 3.5 - 5.1 06/26/2015 [facility] HEMATOLOGY Platelet 171 K/CMM 133 - 450 06/26/2015 [facility] HEMATOLOGY MPV 8.4 fL 7.4 - 10.4 06/26/2015 [facility] HEMATOLOGY MCHC 31.9 g/dL 32.0 - 36.0 06/26/2015 [facility] HEMATOLOGY RDW 13.9 % 11.5 - 14.5 06/26/2015 [facility] HEMATOLOGY Hgb 12.2 g/dL 14.0 - 18.0 06/26/2015 [facility] HEMATOLOGY Hct 38.3 % 42.0 - 54.0 06/26/2015 [facility] HEMATOLOGY RBC 4.60 M/CMM 4.70 - 6.10 06/26/2015 [facility] HEMATOLOGY MCH 26.6 pg 27.0 - 31.0 06/26/2015 [facility] HEMATOLOGY MCV 83.2 fL 80.0 - 94.0 06/26/2015 [facility] HEMATOLOGY WBC 6.9 K/CMM 3.7 - 10.4 06/26/2015 [facility] HEMATOLOGY PT 16.6 s 12.0 - 14.7 06/26/2015 [facility] HEMATOLOGY INR 1.31 0.85 - 1.17 06/26/2015 [facility] HEMATOLOGY PTT 38.4 s 22.9 - 35.8 06/26/2015 [facility] HEMATOLOGY Basophils # 0.1 K/CMM 0.0 - 0.2 06/26/2015 [facility] HEMATOLOGY Eosinophils # 0.5 K/CMM 0.0 - 0.5 06/26/2015 [facility] HEMATOLOGY Monocytes # 0.7 K/CMM 0.0 - 0.8 06/26/2015 [facility] HEMATOLOGY Basophils 1.0 % 0.0 - 1.0 06/26/2015 [facility] HEMATOLOGY Eosinophils 6.6 % 0.0 - 4.0 06/26/2015 [facility] HEMATOLOGY Segs 49.8 % 45.0 - 75.0 06/26/2015 [facility] HEMATOLOGY Segs-Bands # 3.4 K/CMM 1.5 - 8.1 06/26/2015 [facility] HEMATOLOGY Lymphocytes # 2.2 K/CMM 1.0 - 5.5 06/26/2015 [facility] HEMATOLOGY Lymphocytes 32.7 % 20.0 - 40.0 06/26/2015 [facility] HEMATOLOGY Monocytes 9.9 % 2.0 - 12.0 06/26/2015 [facility] CHEM PANEL eGFR 51 mL/min/1.73m2 06/21/2015 Result Comment: The eGFR is calculated using the CKD-EPI formula. In most young, healthy individuals the eGFR will be >90 mL/min/1.73m2. The eGFR declines with age. An eGFR of 60-89 may be normal in some populations, particularly the elderly, for whom the CKD-EPI formula has not been extensively validated. Use of the eGFR is not recommended in the following populations: Individuals with unstable creatinine concentrations, including patients and those with serious co-morbid conditions. Patients with extremes in muscle mass or diet. The data above are obtained from the National Kidney Disease Education Program (NKDEP) which additionally recommends that when the eGFR is used in patients with extremes of body mass index for purposes of drug dosing, the eGFR should be multiplied by the estimated BMI. [facility] CHEM PANEL POC Creatinine 1.4 mg/dL 0.5 - 1.4 06/21/2015 [facility] Pulmonary Vein Mapping CT Pulmonary Vein Mapping CT Exam: Chest CTA pulmonary vein mapping, June 21, 2015 HISTORY: 70-year-old man with chest pain. Evaluate the pulmonary veins. TECHNIQUE: Continuous [address] images were obtained through the chest according to pulmonary vein mapping protocol following the intravenous administration of contrast, with coronal, sagittal, and axial MIP reformatted images obtained at the workstation. Comparison is made to the prior chest CT dated August 01, 2013 performed at [facility]. FINDINGS: Four pulmonary veins are identified, 2 on the right and 2 on the left. Measurements are as follows: Right superior pulmonary vein 20 x 21 mm, the right inferior pulmonary vein 14 x 16 mm, the left superior pulmonary vein 22 x 23 mm, and the left inferior pulmonary vein 18 x 11 mm. The esophagus comes in closest proximity with the left inferior pulmonary vein. No filling defects are identified in the left atrium to suggest the presence of left atrial thrombus. At the level of the aortic valve, the AP diameter of the left atrium is 42 mm. The cardiothoracic ratio is 14/28 cm. No pericardial effusion is identified. The ascending aorta and central pulmonary arteries are normal in caliber. There are scattered calcifications in the aorta and in the left anterior descending coronary artery with a stent. No significant pericardial effusion is identified. No enlarged hilar, mediastinal, or axillary lymph nodes are identified. Limited imaging through the upper abdomen shows cholecystectomy clips and perinephric stranding around the incompletely included kidneys. The adrenal glands are unremarkable. Mild dependent atelectasis is seen in the bilateral lower lobes. There is mild centrilobular emphysema with an apical predilection. No pleural effusions are present. Several tiny calcified granulomas are scattered in the lungs bilaterally. There are also tiny noncalcified pulmonary nodules identified in the right upper lobe on images 115 and 122 and in the left upper lobe on images 86, 94, 100, 115 and 157 measuring 1 to 3 mm. There is a surgical pin in the right humeral head. Mild endplate degenerative changes are noted in the lower thoracic spine. There is a hemangioma in the T9 vertebral body. There is partial fusion of the T4-T5 vertebrae anteriorly. Note is made of an implantable loop recorder in the left anterior chest wall. IMPRESSION: 1. Four pulmonary veins are identified, 2 on the right and 2 on the left. Measurements are as above. 2. No left atrial thrombus. 3. Scattered aortic and LAD coronary artery calcifications with stent. 4. There are a few tiny noncalcified 1 to 3 mm pulmonary nodules identified in the upper lobes, felt to likely represent noncalcified granulomas but are nonspecific. According to the Fleischner Society guidelines, if this patient has a low risk patient (nonsmoker and no known tumor or risk factors thereof), then no further follow-up of pulmonary nodules measuring less than 4 mm is required; however, if this patient is considered to be a high risk patient (history of smoking or other known risk factors), then a repeat chest CT may be obtained in 12 months to document long-term stability or resolution. 5. Mild biapical centrilobular emphysema. 06/21/2015 - - Read by: Sherri Grimes MD Dictated Date/time: 06/21/15 10:10 Electronically Signed by: Sherri Grimes MD 06/21/15 10:40 FINAL REPORT [facility] CHEM PANEL eGFR 62 mL/min/1.73m2 06/13/2014 1Result Comment: The eGFR is calculated using the CKD-EPI formula. In most young, healthy individuals the eGFR will be >90 mL/min/1.73m2. The eGFR declines with age. An eGFR of 60-89 may be normal in some populations, particularly the elderly, for whom the CKD-EPI formula has not been extensively validated. Use of the eGFR is not recommended in the following populations: Individuals with unstable creatinine concentrations, including patients and those with serious co-morbid conditions. Patients with extremes in muscle mass or diet. The data above are obtained from the National Kidney Disease Education Program (NKDEP) which additionally recommends that when the eGFR is used in patients with extremes of body mass index for purposes of drug dosing, the eGFR should be multiplied by the estimated BMI. [facility] CHEM PANEL BUN 20 mg/dL 7 - 06/13/2014 [facility] CHEM PANEL CO2 25 meq/L 24 - 32 06/13/2014 [facility] CHEM PANEL Calcium Lvl 8.7 mg/dL 8.5 - 10.5 06/13/2014 [facility] CHEM PANEL Creatinine Lvl 1.2 mg/dL 0.5 - 1.4 06/13/2014 [facility] CHEM PANEL Glucose Lvl 135 mg/dL 70 - 99 06/13/2014 2Interpretive Data: Adult reference range values reflect the clinical guidelines of the [place] [employer]. [facility] CHEM PANEL Chloride Lvl 102 meq/L 95 - 109 06/13/2014 [facility] CHEM PANEL Sodium Lvl 136 meq/L 135 - 145 06/13/2014 [facility] CHEM PANEL Potassium Lvl 3.7 meq/L 3.5 - 5.1 06/13/2014 [facility] CHEM PANEL AGAP 12.7 meq/L 10.0 - 20.0 06/13/2014 [facility] HEMATOLOGY INR 1.14 0.85 - 1.17 06/13/2014 3Interpretive Data: RECOMMENDED RANGES FOR PROTIME INR: 2.0-3.0 for most medical and surgical thromboembolic states. 2.5-3.5 for artificial heart valves and recurrent embolism. INR SHOULD BE USED ONLY FOR PATIENTS ON STABLE ANTICOAGULANT THERAPY. [facility] HEMATOLOGY PT 14.7 s 12.0 - 14.7 06/13/2014 [facility] HEMATOLOGY PTT 41.7 s 22.9 - 35.8 06/13/2014 4Interpretive Data: Heparin Therapeutic Range: 57 - 92 [facility] Segs 59.5 % 45.0 - 75.0 06/13/[facility] Lymphocytes # 2.3 K/CMM 1.0 - 5.5 06/13/2014 [facility] Segs-Bands # 4.6 K/CMM 1.5 - 8.1 06/13/2014 [facility] Monocytes 8.1 % 2.0 - 12.0 06/13/2014 [facility] Lymphocytes 29.2 % 20.0 - 40.0 06/13/2014 [facility] Basophils 0.3 % 0.0 - 1.0 06/13/2014 [facility] Eosinophils 2.9 % 0.0 - 4.0 06/13/2014 [facility] Eosinophils # 0.2 K/CMM 0.0 - 0.5 06/13/2014 [facility] Monocytes # 0.6 K/CMM 0.0 - 0.8 06/13/2014 [facility] WBC 7.7 K/CMM 3.7 - 10.4 06/13/2014 [facility] Hgb 15.2 g/dL 14.0 - 18.0 06/13/2014 [facility] RBC 5.07 M/CMM 4.70 - 6.10 06/13/2014 [facility] MCHC 34.6 g/dL 32.0 - 36.0 06/13/2014 [facility] MCV 86.6 fL 80.0 - 94.0 06/13/2014 [facility] Hct 43.9 % 42.0 - 54.0 06/13/2014 [facility] MCH 29.9 pg 27.0 - 31.0 06/13/2014 [facility] Platelet 185 K/CMM 133 - 450 06/13/2014 [facility] RDW 13.3 % 11.5 - 14.5 06/13/2014 [facility] MPV 8.4 fL 7.4 - 10.4 06/13/2014 [facility] BACTERIAL - SEROLOGY Campylobacter Antigen Negative (11/08/13 12:32 PM) Negative 11/08/2013 [facility] MOLECULAR DIAGNOSTIC C difficile DNA Negative 3 (11/08/13 12:32 PM) Negative 11/08/2013 3Interpretive Data: [employer] Clostridium difficile assay utilizes loop-mediated isothermal DNA amplification (LAMP) technology to detect a 204 bp region of the tcdA gene within the PaLoc gene segment present in all known toxigenic C. difficile strains. The assay utilizes FDA cleared IVD reagents. Performance characteristics have been verified by the [facility] within the [facility]. The [facility] is authorized under the Clinical Laboratory Improvement Amendment of 1988 (CLIA-88) to perform high complexity testing. [facility] PARASITOLOGY - SEROLOGY Giardia Ag Negative (11/08/13 12:32 PM) Negative 11/08/2013 [facility] CHEM PANEL eGFR 56 mL/min/1.73m2 11/03/2013 1Result Comment: The eGFR is calculated using the CKD-EPI formula. In most young, healthy individuals the eGFR will be >90 mL/min/1.73m2. The eGFR declines with age. An eGFR of 60-89 may be normal in some populations, particularly the elderly, for whom the CKD-EPI formula has not been extensively validated. Use of the eGFR is not recommended in the following populations: Individuals with unstable creatinine concentrations, including patients and those with serious co-morbid conditions. Patients with extremes in muscle mass or diet. The data above are obtained from the National Kidney Disease Education Program (NKDEP) which additionally recommends that when the eGFR is used in patients with extremes of body mass index for purposes of drug dosing, the eGFR should be multiplied by the estimated BMI. [facility] CHEM PANEL CO2 26 meq/L 24 - 32 11/03/2013 [facility] CHEM PANEL Chloride Lvl 102 meq/L 95 - 109 11/03/2013 [facility] CHEM PANEL Potassium Lvl 3.9 meq/L 3.5 - 5.1 11/03/2013 [facility] CHEM PANEL Calcium Lvl 9.2 mg/dL 8.5 - 10.5 11/03/2013 [facility] CHEM PANEL Sodium Lvl 138 meq/L 135 - 145 11/03/2013 [facility] CHEM PANEL BUN 16 mg/dL 7 - 22 11/03/2013 [facility] CHEM PANEL Creatinine Lvl 1.3 mg/dL 0.5 - 1.4 11/03/2013 [facility] CHEM PANEL Glucose Lvl 98 mg/dL 70 - 99 11/03/2013 2Interpretive Data: Adult reference range values reflect the clinical guidelines of the [place] [employer]. [facility] CHEM PANEL AGAP 13.9 meq/L 10.0 - 20.0 11/03/2013 [facility] HEMATOLOGY Hct 43.1 % 42.0 - 54.0 11/03/2013 [facility] HEMATOLOGY Hgb 14.5 g/dL 14.0 - 18.0 11/03/2013 [facility] CHEM PANEL Calcium Lvl 7.8 mg/dL 8.5 - 10.5 08/06/2013 [facility] CHEM PANEL Chloride Lvl 108 meq/L 95 - 109 08/06/2013 [facility] CHEM PANEL CO2 24 meq/L 24 - 32 08/06/2013 [facility] CHEM PANEL Potassium Lvl 3.5 meq/L 3.5 - 5.1 08/06/2013 [facility] CHEM PANEL eGFR 69 mL/min/1.73m2 08/06/2013 1Result Comment: The eGFR is calculated using the CKD-EPI formula. In most young, healthy individuals the eGFR will be >90 mL/min/1.73m2. The eGFR declines with age. An eGFR of 60-89 may be normal in some populations, particularly the elderly, for whom the CKD-EPI formula has not been extensively validated. Use of the eGFR is not recommended in the following populations: Individuals with unstable creatinine concentrations, including patients and those with serious co-morbid conditions. Patients with extremes in muscle mass or diet. The data above are obtained from the National Kidney Disease Education Program (NKDEP) which additionally recommends that when the eGFR is used in patients with extremes of body mass index for purposes of drug dosing, the eGFR should be multiplied by the estimated BMI. [facility] CHEM PANEL Sodium Lvl 140 meq/L 135 - 145 08/06/2013 [facility] CHEM PANEL Creatinine Lvl 1.1 mg/dL 0.5 - 1.4 08/06/2013 [facility] CHEM PANEL BUN 20 mg/dL 7 - 22 08/06/2013 [facility] CHEM PANEL Glucose Lvl 77 mg/dL 70 - 99 08/06/2013 4Interpretive Data: Adult reference range values reflect the clinical guidelines of the [place] [employer]. [facility] CHEM PANEL AGAP 11.5 meq/L 10.0 - 20.0 08/06/2013 [facility] HEMATOLOGY MPV 8.3 fL 7.4 - 10.4 08/06/2013 [facility] MCH 30.5 pg 27.0 - 31.0 08/06/2013 [facility] MCHC 34.3 g/dL 32.0 - 36.0 08/06/2013 [facility] RDW 12.6 % 11.5 - 14.5 08/06/2013 [facility] HEMATOLOGY Platelet 157 K/CMM 133 - 450 08/06/2013 [facility] MCV 88.8 fL 80.0 - 94.0 08/06/2013 [facility] HEMATOLOGY Hgb 13.0 g/dL 14.0 - 18.0 08/06/2013 [facility] Hct 37.9 % 42.0 - 54.0 08/06/2013 [facility] RBC 4.27 M/CMM 4.70 - 6.10 08/06/2013 [facility] WBC 8.9 K/CMM 3.7 - 10.4 08/06/2013 [facility] CHEM PANEL eGFR 62 mL/min/1.73m2 08/05/2013 2Result Comment: The eGFR is calculated using the CKD-EPI formula. In most young, healthy individuals the eGFR will be >90 mL/min/1.73m2. The eGFR declines with age. An eGFR of 60-89 may be normal in some populations, particularly the elderly, for whom the CKD-EPI formula has not been extensively validated. Use of the eGFR is not recommended in the following populations: Individuals with unstable creatinine concentrations, including patients and those with serious co-morbid conditions. Patients with extremes in muscle mass or diet. The data above are obtained from the National Kidney Disease Education Program (NKDEP) which additionally recommends that when the eGFR is used in patients with extremes of body mass index for purposes of drug dosing, the eGFR should be multiplied by the estimated BMI. [facility] CHEM PANEL Chloride Lvl 107 meq/L 95 - 109 08/05/2013 [facility] CHEM PANEL BUN 28 mg/dL 7 - 22 08/05/2013 [facility] CHEM PANEL Creatinine Lvl 1.2 mg/dL 0.5 - 1.4 08/05/2013 [facility] CHEM PANEL Sodium Lvl 139 meq/L 135 - 145 08/05/2013 [facility] CHEM PANEL Calcium Lvl 7.9 mg/dL 8.5 - 10.5 08/05/2013 [facility] CHEM PANEL CO2 24 meq/L 24 - 32 08/05/2013 [facility] CHEM PANEL Potassium Lvl 4.2 meq/L 3.5 - 5.1 08/05/2013 [facility] CHEM PANEL Glucose Lvl 224 mg/dL 70 - 99 08/05/2013 5Interpretive Data: Adult reference range values reflect the clinical guidelines of the [place] [employer]. [facility] CHEM PANEL AGAP 12.2 meq/L 10.0 - 20.0 08/05/2013 [facility] HEMATOLOGY MCV 89.3 fL 80.0 - 94.0 08/05/2013 [facility] HEMATOLOGY Hgb 12.1 g/dL 14.0 - 18.0 08/05/2013 [facility] HEMATOLOGY MPV 8.4 fL 7.4 - 10.4 08/05/2013 [facility] HEMATOLOGY Hct 35.7 % 42.0 - 54.0 08/05/2013 [facility] HEMATOLOGY MCH 30.3 pg 27.0 - 31.0 08/05/2013 [facility] HEMATOLOGY RDW 12.8 % 11.5 - 14.5 08/05/2013 [facility] HEMATOLOGY Platelet 171 K/CMM 133 - 450 08/05/2013 [facility] MCHC 34.0 g/dL 32.0 - 36.0 08/05/2013 [facility] HEMATOLOGY RBC 4.00 M/CMM 4.70 - 6.10 08/05/2013 [facility] HEMATOLOGY WBC 13.5 K/CMM 3.7 - 10.4 08/05/2013 [facility] URINE AND STOOL UA Urobilinogen <=1.0 mg/dL 0.1 - 1.0 08/04/2013 [facility] URINE AND STOOL UA Color Ltyellow 08/04/2013 [facility] URINE AND STOOL UA Blood Negative (08/04/13 1:55 PM) Negative 08/04/2013 [facility] URINE AND STOOL UA WBC null 0 - 5 08/04/2013 [facility] URINE AND STOOL UA Bili Negative *NA* (08/04/13 1:55 PM) Negative 08/04/2013 [facility] URINE AND STOOL UA Ketones Negative mg/dL Negative mg/dL 08/04/2013 [facility] URINE AND STOOL UA Leuk Est Negative (08/04/13 1:55 PM) Negative 08/04/2013 [facility] URINE AND STOOL UA Nitrite Negative (08/04/13 1:55 PM) Negative 08/04/2013 [facility] URINE AND STOOL UA Sq Epi None Seen 08/04/2013 [facility] URINE AND STOOL UA Turbidity Clear (08/04/13 1:55 PM) Clear 08/04/2013 [facility] URINE AND STOOL UA Protein Negative mg/dL Negative mg/dL 08/04/2013 [facility] URINE AND STOOL UA Spec Grav 1.023 <=1.030 08/04/2013 [facility] URINE AND STOOL UA pH 5.0 5.0 - 8.0 08/04/2013 [facility] URINE AND STOOL UA Glucose 150 mg/dL Negative mg/dL 08/04/2013 [facility] URINE CHEM U Creatinine 116.1 mg/dL 08/04/2013 7Interpretive Data: No established reference ranges. [facility] URINE CHEM U Protein 22.1 mg/dL 08/04/2013 8Interpretive Data: No established reference ranges. [facility] Renal US Renal US RENAL ULTRASOUND INDICATION: Renal insufficiency COMPARISON: None FINDINGS: Transverse and sagittal images of the kidneys were obtained. The right kidney measures 11.2 cm in length and the left kidney measures 12.0 cm in length. There is a 3 mm calculus of the interpolar region of the right kidney. There is normal renal cortical echogenicity and no hydronephrosis or mass. The bladder is unremarkable. IMPRESSION: Nonobstructive right nephrolithiasis. SL: 16 08/04/2013 - - Read by: Mikael Lujan Dictated Date/time: 08/04/13 17:10 Electronically Signed by: Mikael Lujan MD 08/04/13 17:12 FINAL REPORT [facility] ELECTROLYTES CO2 24 meq/L 24 - 32 08/04/2013 [facility] ELECTROLYTES Calcium Lvl 8.4 mg/dL 8.5 - 10.5 08/04/2013 [facility] ELECTROLYTES Chloride Lvl 104 meq/L 95 - 109 08/04/2013 [facility] ELECTROLYTES Potassium Lvl 5.3 meq/L 3.5 - 5.1 08/04/2013 [facility] ELECTROLYTES Sodium Lvl 138 meq/L 135 - 145 08/04/2013 [facility] ELECTROLYTES Creatinine Lvl 1.5 mg/dL 0.5 - 1.4 08/04/2013 [facility] ELECTROLYTES BUN 33 mg/dL 7 - 22 08/04/2013 [facility] ELECTROLYTES Glucose Lvl 249 mg/dL 70 - 99 08/04/2013 6Interpretive Data: Adult reference range values reflect the clinical guidelines of the [place] [employer]. [facility] ELECTROLYTES eGFR 47 mL/min/1.73m2 08/04/2013 3Result Comment: The eGFR is calculated using the CKD-EPI formula. In most young, healthy individuals the eGFR will be >90 mL/min/1.73m2. The eGFR declines with age. An eGFR of 60-89 may be normal in some populations, particularly the elderly, for whom the CKD-EPI formula has not been extensively validated. Use of the eGFR is not recommended in the following populations: Individuals with unstable creatinine concentrations, including patients and those with serious co-morbid conditions. Patients with extremes in muscle mass or diet. The data above are obtained from the National Kidney Disease Education Program (NKDEP) which additionally recommends that when the eGFR is used in patients with extremes of body mass index for purposes of drug dosing, the eGFR should be multiplied by the estimated BMI. [facility] ELECTROLYTES AGAP 15.3 meq/L 10.0 - 20.0 08/04/2013 [facility] HEMATOLOGY RBC 4.23 M/CMM 4.70 - 6.10 08/04/2013 [facility] HEMATOLOGY Hgb 12.9 g/dL 14.0 - 18.0 08/04/2013 [facility] HEMATOLOGY MCHC 34.2 g/dL 32.0 - 36.0 08/04/2013 [facility] HEMATOLOGY Hct 37.6 % 42.0 - 54.0 08/04/2013 [facility] MCH 30.4 pg 27.0 - 31.0 08/04/2013 [facility] HEMATOLOGY MCV 89.0 fL 80.0 - 94.0 08/04/2013 [facility] HEMATOLOGY RDW 12.8 % 11.5 - 14.5 08/04/2013 [facility] HEMATOLOGY Platelet 165 K/CMM 133 - 450 08/04/2013 [facility] MPV 8.2 fL 7.4 - 10.4 08/04/2013 [facility] WBC 19.1 K/CMM 3.7 - 10.4 08/04/2013 [facility] CHEM PANEL AST 33 unit/L 0 - 37 08/01/2013 [facility] CHEM PANEL A/G Ratio 1.1 0.7 - 1.6 08/01/2013 [facility] CHEM PANEL Globulin 3.1 g/dL 2.0 - 4.0 08/01/2013 [facility] CHEM PANEL B/C Ratio 13 6 - 25 08/01/2013 [facility] CHEM PANEL Albumin Lvl 3.5 g/dL 3.5 - 5.0 08/01/2013 [facility] CHEM PANEL Alk Phos 68 unit/L 39 - 136 08/01/2013 [facility] CHEM PANEL Total Protein 6.6 g/dL 6.4 - 8.4 08/01/2013 [facility] CHEM PANEL Bili Total 0.3 mg/dL 0.2 - 1.3 08/01/2013 [facility] CHEM PANEL ALT 35 unit/L 0 - 65 08/01/2013 [facility] Chest 2 views Chest 2 views PA and lateral: The cardiomediastinal silhouette, pulmonary vasculature and berna are within normal limits. The lungs and pleural spaces are clear. There is mild chronic wedging of T10, unchanged from 03/29/2013. There are no acute osseous abnormalities. There is no other significant change. IMPRESSION: No acute radiographic abnormality in the chest. SL:08/01/2013 - - Read by: Jeremias Handley Dictated Date/time: 08/02/13 07:48 Electronically Signed by: Jeremias Handley MD 08/02/13 07:51 FINAL REPORT [facility] Chest wo contrast CT Chest wo contrast CT HISTORY: Shortness of breath. Chest CT performed without contrast. Minor scattered reticular atelectasis or fibrosis. Mild lower lobe bronchiectatic changes. No honeycombing, bullae or other pulmonary destructive changes are evident. No pulmonary nodule, mass or acute infiltrate. No pathologically enlarged mediastinal or hilar lymph nodes. No pleural or pericardial effusion. Heart size is normal. No aortic aneurysm. (As study was performed without contrast, unable to comment regarding possibility of pulmonary embolus.) Limited visualized upper abdomen demonstrates mild splenomegaly. Prior cholecystectomy. IMPRESSION: Very mild bronchiectatic changes, mainly in the lower lobes. Mild mainly dependent reticular fibrosis or atelectasis. No specific acute findings. SL:08/01/2013 - - Read by: Osmani Lugo Dictated Date/time: 08/02/13 07:56 Electronically Signed by: Osmani Lugo MD 08/02/13 08:03 FINAL REPORT [facility] 2 views Chest 2 views CHEST RADIOGRAPHY CLINICAL HISTORY: Cough. COMPARISON IMAGIN02/23/2012 radiography. FINDINGS: Two views of the chest were acquired and submitted for evaluation. No pleural fluid is identified. The contour of the cardiac silhouette is within normal limits. There is no significant pulmonary consolidation or nodularity. Bones are unremarkable. IMPRESSION: No significant abnormality. 03/29/2013 - - Read by: Deven Royal Dictated Date/time: 03/29/13 12:09 Electronically Signed by: Deven Royal MD 03/29/13 12:10 FINAL REPORT [facility] BEDSIDE GLUCOSE TESTING Gluc POC Lifscn 116 mg/dL 65 - 110 06/22/2011 [place] 1Interpretive Data: Upper Reportable Limit: 200 mg/dL. [facility] BEDSIDE GLUCOSE TESTING Comment1 Notify VINCENT 06/22/2011 NA [facility] BEDSIDE GLUCOSE TESTING Gluc POC Lifscn 132 mg/dL 65 - 110 06/22/2011 [place] 2Interpretive Data: Upper Reportable Limit: 200 mg/dL. [facility] BEDSIDE GLUCOSE TESTING Comment1 Notify VINCENT 06/21/2011 NA [facility] BEDSIDE GLUCOSE TESTING Gluc POC Lifscn 117 mg/dL 65 - 110 06/21/2011 [place] 3Interpretive Data: Upper Reportable Limit: 200 mg/dL. [facility] BEDSIDE GLUCOSE TESTING Comment1 Notify VINCENT 06/21/2011 NA [facility] CHEMISTRY Phosphorus 2.9 mg/dL 2.5 - 4.5 06/20/2011 Normal [facility] CHEMISTRY Magnesium Lvl 1.9 mg/dL 1.8 - 2.4 06/20/2011 Normal [facility] CHEMISTRY Sodium Lvl 138 meq/L 135 - 145 06/20/2011 Normal [facility] CHEMISTRY Creatinine Lvl 1.1 mg/dL 0.5 - 1.4 06/20/2011 Normal [facility] CHEMISTRY BUN 12 mg/dL 7 - 22 06/20/2011 Normal [facility] CHEMISTRY Glucose Lvl 120 mg/dL 06/20/2011 NA 4Interpretive Data: Reference Ranges : 0 - 7 days : 41 - 90 mg/dL7 days - 150 yrs : 70 - 99 mg/dL (fasting), based on the clinical recommendations of the [place] [employer]. [facility] CHEMISTRY AGAP 12.0 meq/L 10.0 - 20.0 06/20/2011 Normal [facility] CHEMISTRY Chloride Lvl 103 meq/L 95 - 109 06/20/2011 Normal [facility] CHEMISTRY Potassium Lvl 4.0 meq/L 3.5 - 5.1 06/20/2011 Normal [facility] CHEMISTRY CO2 27 meq/L 24 - 32 06/20/2011 Normal [facility] CHEMISTRY Calcium Lvl 8.1 mg/dL 8.5 - 10.5 06/20/2011 LOW [facility] HEMATOLOGY Hgb 12.5 g/dL 14.0 - 18.0 06/20/2011 LOW [facility] HEMATOLOGY Hct 37.0 % 42.0 - 54.0 06/20/2011 LOW [facility] BLOOD BANK RESULTS ABO/Rh O NEG 06/13/2011 Unknown [facility] BLOOD BANK RESULTS Antibody Scrn Negative (06/13/2011 12:30:00) 06/13/2011 Normal [facility] PTT 38.0 s 22.9 - 35.8 06/13/2011 [place] 6Interpretive Data: Heparin Therapeutic Range: 57 - 92 [facility] INR 1.20 0.85 - 1.17 06/13/2011 [place] 5Interpretive Data: RECOMMENDED RANGES FOR PROTIME INR: 2.0-3.0 for most medical and surgical thromboembolic states. 2.5-3.5 for artificial heart valves and recurrent embolism.INR SHOULD BE USED ONLY FOR PATIENTS ON STABLE ANTICOAGULANT THERAPY. [facility] PT 15.2 s 12.0 - 14.7 06/13/2011 HI [facility] URINALYSIS UA Urobilinogen 0.2 EU/dL 0.1 - 1.0 06/13/2011 Normal [facility] URINALYSIS UA Leuk Est Trace *ABN* (06/13/2011 12:30:00) Negative 06/13/2011 ABN [facility] URINALYSIS UA Nitrite Positive *ABN* (06/13/2011 12:30:00) Negative 06/13/2011 ABN [facility] URINALYSIS UA Blood Negative (06/13/2011 12:30:00) Negative 06/13/2011 Normal [facility] URINALYSIS UA Ketones Negative *NA* (06/13/2011 12:30:00) Negative 06/13/2011 NA [facility] URINALYSIS UA Bili Negative *NA* (06/13/2011 12:30:00) Negative 06/13/2011 NA [facility] URINALYSIS UA Glucose Negative (06/13/2011 12:30:00) Negative 06/13/2011 Normal [facility] URINALYSIS UA Protein Negative (06/13/2011 12:30:00) Negative 06/13/2011 Normal [facility] URINALYSIS UA pH 5.5 5.0 - 8.0 06/13/2011 Normal [facility] URINALYSIS UA Spec Grav >=1.030 *ABN* (06/13/2011 12:30:00) <=1.030 06/13/2011 ABN [facility] URINALYSIS UA Turbidity Clear (06/13/2011 12:30:00) Clear 06/13/2011 Normal [facility] URINALYSIS UA Color Brown *ABN* (06/13/2011 12:30:00) Yellow 06/13/2011 ABN [facility] URINALYSIS Micro? Performed (06/13/2011 12:30:00) 06/13/2011 Normal [facility] URINALYSIS UA RBC 0-2 /HPF (06/13/2011 12:30:00) 0 - 2 06/13/2011 Normal [facility] URINALYSIS UA Sq Epi Rare /LPF (06/13/2011 12:30:00) Few 06/13/2011 Normal [facility] URINALYSIS UA WBC 0-2 /HPF (06/13/2011 12:30:00) None Seen 06/13/2011 Normal [facility] BEDSIDE GLUCOSE TESTING Gluc POC Lifscn 119 mg/dL 65 - 110 06/05/2011 [place] 1Interpretive Data: Upper Reportable Limit: 200 mg/dL. [facility] CHEMISTRY Lipase Lvl 53 U/L 73 - 393 06/05/2011 LOW [facility] CHEMISTRY Amylase Lvl 34 U/L 25 - 115 06/05/2011 Normal [facility] CHEMISTRY A/G Ratio 1.3 0.7 - 1.6 06/05/2011 Normal [facility] CHEMISTRY Globulin 2.9 g/dL 2.0 - 4.0 06/05/2011 Normal [facility] CHEMISTRY AGAP 13.9 meq/L 10.0 - 20.0 06/05/2011 Normal [facility] CHEMISTRY B/C Ratio 5 6 - 25 06/05/2011 LOW [facility] CHEMISTRY ALT 29 U/L 0 - 65 06/05/2011 Normal [facility] CHEMISTRY AST 18 U/L 0 - 37 06/05/2011 Normal [facility] CHEMISTRY Total Protein 6.6 g/dL 6.4 - 8.4 06/05/2011 Normal [facility] CHEMISTRY CO2 30 meq/L 24 - 32 06/05/2011 Normal [facility] CHEMISTRY Albumin Lvl 3.7 g/dL 3.5 - 5.0 06/05/2011 Normal [facility] CHEMISTRY Sodium Lvl 139 meq/L 135 - 145 06/05/2011 Normal [facility] CHEMISTRY Alk Phos 65 U/L 39 - 136 06/05/2011 Normal [facility] CHEMISTRY Bili Total 0.7 mg/dL 0.2 - 1.3 06/05/2011 Normal [facility] CHEMISTRY Calcium Lvl 8.7 mg/dL 8.5 - 10.5 06/05/2011 Normal [facility] CHEMISTRY BUN 7 mg/dL 7 - 22 06/05/2011 Normal [facility] CHEMISTRY Glucose Lvl 122 mg/dL 06/05/2011 NA 4Interpretive Data: Reference Ranges : 0 - 7 days : 41 - 90 mg/dL7 days - 150 yrs : 70 - 99 mg/dL (fasting), based on the clinical recommendations of the [place] [employer]. [facility] CHEMISTRY Chloride Lvl 100 meq/L 95 - 109 06/05/2011 Normal [facility] CHEMISTRY Creatinine Lvl 1.3 mg/dL 0.5 - 1.4 06/05/2011 Normal [facility] CHEMISTRY Potassium Lvl 4.9 meq/L 3.5 - 5.1 06/05/2011 Normal [facility] HEMATOLOGY Platelet 199 K/CMM 133 - 450 06/05/2011 Normal [facility] HEMATOLOGY RDW 12.7 % 11.5 - 14.5 06/05/2011 Normal [facility] HEMATOLOGY MCHC 34.9 g/dL 32.0 - 36.0 06/05/2011 Normal [facility] HEMATOLOGY MCH 31.0 pg 27.0 - 31.0 06/05/2011 Normal [facility] HEMATOLOGY MPV 8.0 fL 7.4 - 10.4 06/05/2011 Normal [facility] HEMATOLOGY WBC 7.2 K/CMM 3.7 - 10.4 06/05/2011 Normal [facility] HEMATOLOGY RBC 4.64 M/CMM 4.70 - 6.10 06/05/2011 LOW [facility] HEMATOLOGY Hgb 14.4 g/dL 14.0 - 18.0 06/05/2011 Normal [facility] HEMATOLOGY Hct 41.2 % 42.0 - 54.0 06/05/2011 LOW [facility] HEMATOLOGY MCV 88.9 fL 80.0 - 94.0 06/05/2011 Normal [facility] HEMATOLOGY Basophils # 0.0 K/CMM 0.0 - 0.2 06/05/2011 Normal [facility] HEMATOLOGY Lymphocytes # 1.7 K/CMM 1.0 - 5.5 06/05/2011 Normal [facility] HEMATOLOGY Eosinophils # 0.5 K/CMM 0.0 - 0.5 06/05/2011 Normal [facility] HEMATOLOGY Monocytes # 0.9 K/CMM 0.0 - 0.8 06/05/2011 HI [facility] HEMATOLOGY Basophils 0.6 % 0.0 - 1.0 06/05/2011 Normal [facility] HEMATOLOGY Eosinophils 6.7 % 0.0 - 4.0 06/05/2011 [facility] HEMATOLOGY Segs-Bands # 4.1 K/CMM 1.5 - 8.1 06/05/2011 Normal [facility] HEMATOLOGY Monocytes 12.6 % 2.0 - 12.0 06/05/2011 [facility] HEMATOLOGY Lymphocytes 23.8 % 20.0 - 40.0 06/05/2011 Normal [facility] HEMATOLOGY Segs 56.3 % 45.0 - 75.0 06/05/2011 Normal [facility] BEDSIDE GLUCOSE TESTING Gluc POC Lifscn 168 mg/dL 65 - 110 06/05/2011 [place] 2Interpretive Data: Upper Reportable Limit: 200 mg/dL. [facility] BEDSIDE GLUCOSE TESTING Gluc POC Lifscn 139 mg/dL 65 - 110 06/04/2011 [place] 3Interpretive Data: Upper Reportable Limit: 200 mg/dL. [facility] BEDSIDE GLUCOSE TESTING Comment1 Assess patient 06/04/2011 NA [facility] BEDSIDE GLUCOSE TESTING Comment2 Notify RN/MD 06/04/2011 [facility] BEDSIDE GLUCOSE TESTING Comment2 Notify RN/MD 06/04/2011 NA [facility] BEDSIDE GLUCOSE TESTING Comment1 Assess patient 06/04/2011 NA [facility] BEDSIDE GLUCOSE TESTING Comment1 Notify RN/MD 06/04/2011 [facility] CHEMISTRY AST 15 U/L 0 - 37 06/04/2011 Normal [facility] CHEMISTRY Globulin 3.3 g/dL 2.0 - 4.0 06/04/2011 Normal [facility] CHEMISTRY A/G Ratio 1.1 0.7 - 1.6 06/04/2011 Normal [facility] CHEMISTRY ALT 28 U/L 0 - 65 06/04/2011 Normal [facility] CHEMISTRY Alk Phos 64 U/L 39 - 136 06/04/2011 Normal [facility] CHEMISTRY Bili Total 0.9 mg/dL 0.2 - 1.3 06/04/2011 Normal [facility] CHEMISTRY Total Protein 6.8 g/dL 6.4 - 8.4 06/04/2011 Normal [facility] CHEMISTRY Albumin Lvl 3.5 g/dL 3.5 - 5.0 06/04/2011 Normal [facility] CHEMISTRY B/C Ratio 7 6 - 25 06/04/2011 Normal [facility] CHEMISTRY Calcium Lvl 8.9 mg/dL 8.5 - 10.5 06/04/2011 Normal [facility] CHEMISTRY Chloride Lvl 100 meq/L 95 - 109 06/04/2011 Normal [facility] CHEMISTRY CO2 29 meq/L 24 - 32 06/04/2011 Normal [facility] CHEMISTRY Potassium Lvl 3.9 meq/L 3.5 - 5.1 06/04/2011 Normal [facility] CHEMISTRY AGAP 12.9 meq/L 10.0 - 20.0 06/04/2011 Normal [facility] CHEMISTRY Sodium Lvl 138 meq/L 135 - 145 06/04/2011 Normal [facility] CHEMISTRY BUN 8 mg/dL 7 - 22 06/04/2011 Normal [facility] CHEMISTRY Creatinine Lvl 1.2 mg/dL 0.5 - 1.4 06/04/2011 Normal [facility] CHEMISTRY Glucose Lvl 144 mg/dL 06/04/2011 NA 5Interpretive Data: Reference Ranges : 0 - 7 days : 41 - 90 mg/dL7 days - 150 yrs : 70 - 99 mg/dL (fasting), based on the clinical recommendations of the [place] [employer]. [facility] CHEMISTRY Amylase Lvl 38 U/L 25 - 115 06/04/2011 Normal [facility] CHEMISTRY Lipase Lvl 50 U/L 73 - 393 06/04/2011 LOW [facility] CHEMISTRY Vitamin B12 Lvl 890 pg/mL 254 - 1320 06/04/2011 Normal [facility] CHEMISTRY % Satur Fe 17 % 12 - 57 06/04/2011 Normal [facility] CHEMISTRY Iron 60 ug/dl 45 - 160 06/04/2011 Normal [facility] CHEMISTRY TIBC 352 ug/dl 228 - 428 06/04/2011 Normal [facility] CHEMISTRY UIBC 292 ug/dl 110 - 370 06/04/2011 Normal [facility] HEMATOLOGY WBC 8.2 K/CMM 3.7 - 10.4 06/04/2011 Normal [facility] HEMATOLOGY RBC 4.50 M/CMM 4.70 - 6.10 06/04/2011 LOW [facility] HEMATOLOGY MPV 7.7 fL 7.4 - 10.4 06/04/2011 Normal [facility] HEMATOLOGY Platelet 195 K/CMM 133 - 450 06/04/2011 Normal [facility] HEMATOLOGY MCV 87.5 fL 80.0 - 94.0 06/04/2011 Normal [facility] HEMATOLOGY Hct 39.4 % 42.0 - 54.0 06/04/2011 LOW [facility] HEMATOLOGY MCH 30.6 pg 27.0 - 31.0 06/04/2011 Normal [facility] HEMATOLOGY Hgb 13.8 g/dL 14.0 - 18.0 06/04/2011 LOW [facility] HEMATOLOGY MCHC 35.0 g/dL 32.0 - 36.0 06/04/2011 Normal [facility] HEMATOLOGY RDW 12.7 % 11.5 - 14.5 06/04/2011 Normal [facility] HEMATOLOGY Lymphocytes # 1.8 K/CMM 1.0 - 5.5 06/04/2011 Normal [facility] HEMATOLOGY Monocytes # 1.0 K/CMM 0.0 - 0.8 06/04/2011 [facility] HEMATOLOGY Eosinophils # 0.4 K/CMM 0.0 - 0.5 06/04/2011 Normal [facility] HEMATOLOGY Basophils # 0.1 K/CMM 0.0 - 0.2 06/04/2011 Normal [facility] HEMATOLOGY Monocytes 12.0 % 2.0 - 12.0 06/04/2011 Normal [facility] HEMATOLOGY Basophils 0.7 % 0.0 - 1.0 06/04/2011 Normal [facility] HEMATOLOGY Lymphocytes 21.7 % 20.0 - 40.0 06/04/2011 Normal [facility] HEMATOLOGY Eosinophils 4.5 % 0.0 - 4.0 06/04/2011 [facility] HEMATOLOGY Segs-Bands # 5.0 K/CMM 1.5 - 8.1 06/04/2011 Normal [facility] HEMATOLOGY Segs 61.1 % 45.0 - 75.0 06/04/2011 Normal [facility] CHEMISTRY A/G Ratio 1.3 0.7 - 1.6 06/03/2011 Normal [facility] CHEMISTRY Globulin 3.0 g/dL 2.0 - 4.0 06/03/2011 Normal [facility] CHEMISTRY Calcium Lvl 8.8 mg/dL 8.5 - 10.5 06/03/2011 Normal [facility] CHEMISTRY Albumin Lvl 3.8 g/dL 3.5 - 5.0 06/03/2011 Normal [facility] CHEMISTRY B/C Ratio 8 6 - 25 06/03/2011 Normal [facility] CHEMISTRY AGAP 13.4 meq/L 10.0 - 20.0 06/03/2011 Normal [facility] CHEMISTRY Total Protein 6.8 g/dL 6.4 - 8.4 06/03/2011 Normal [facility] CHEMISTRY ALT 34 U/L 0 - 65 06/03/2011 Normal [facility] CHEMISTRY AST 20 U/L 0 - 37 06/03/2011 Normal [facility] CHEMISTRY Bili Total 0.8 mg/dL 0.2 - 1.3 06/03/2011 Normal [facility] CHEMISTRY Alk Phos 70 U/L 39 - 136 06/03/2011 Normal [facility] CHEMISTRY Sodium Lvl 140 meq/L 135 - 145 06/03/2011 Normal [facility] CHEMISTRY Creatinine Lvl 1.2 mg/dL 0.5 - 1.4 06/03/2011 Normal [facility] CHEMISTRY BUN 9 mg/dL 7 - 22 06/03/2011 Normal [facility] CHEMISTRY Glucose Lvl 69 mg/dL 06/03/2011 NA 6Interpretive Data: Reference Ranges : 0 - 7 days : 41 - 90 mg/dL7 days - 150 yrs : 70 - 99 mg/dL (fasting), based on the clinical recommendations of the [place] [employer]. [facility] CHEMISTRY Chloride Lvl 101 meq/L 95 - 109 06/03/2011 Normal [facility] CHEMISTRY Potassium Lvl 4.4 meq/L 3.5 - 5.1 06/03/2011 Normal [facility] CHEMISTRY CO2 30 meq/L 24 - 32 06/03/2011 Normal [facility] CHEMISTRY Lipase Lvl 57 U/L 73 - 393 06/03/2011 LOW [facility] CHEMISTRY Amylase Lvl 43 U/L 25 - 115 06/03/2011 Normal [facility] HEMATOLOGY MPV 8.0 fL 7.4 - 10.4 06/03/2011 Normal [facility] HEMATOLOGY Platelet 200 K/CMM 133 - 450 06/03/2011 Normal [facility] HEMATOLOGY Hct 43.2 % 42.0 - 54.0 06/03/2011 Normal [facility] HEMATOLOGY Hgb 15.2 g/dL 14.0 - 18.0 06/03/2011 Normal [facility] HEMATOLOGY RBC 4.91 M/CMM 4.70 - 6.10 06/03/2011 Normal [facility] HEMATOLOGY MCV 87.9 fL 80.0 - 94.0 06/03/2011 Normal [facility] HEMATOLOGY RDW 13.0 % 11.5 - 14.5 06/03/2011 Normal [facility] HEMATOLOGY MCH 31.0 pg 27.0 - 31.0 06/03/2011 Normal [facility] HEMATOLOGY WBC 11.9 K/CMM 3.7 - 10.4 06/03/2011 HI [facility] HEMATOLOGY MCHC 35.2 g/dL 32.0 - 36.0 06/03/2011 Normal [facility] HEMATOLOGY Basophils 0.5 % 0.0 - 1.0 06/03/2011 Normal [facility] HEMATOLOGY Eosinophils 3.4 % 0.0 - 4.0 06/03/2011 Normal [facility] HEMATOLOGY Monocytes 10.4 % 2.0 - 12.0 06/03/2011 Normal [facility] HEMATOLOGY Lymphocytes 19.7 % 20.0 - 40.0 06/03/2011 LOW [facility] HEMATOLOGY Segs 66.0 % 45.0 - 75.0 06/03/2011 Normal [facility] HEMATOLOGY Segs-Bands # 7.8 K/CMM 1.5 - 8.1 06/03/2011 Normal [facility] HEMATOLOGY Basophils # 0.1 K/CMM 0.0 - 0.2 06/03/2011 Normal [facility] HEMATOLOGY Eosinophils # 0.4 K/CMM 0.0 - 0.5 06/03/2011 Normal [facility] HEMATOLOGY Monocytes # 1.2 K/CMM 0.0 - 0.8 06/03/2011 HI [facility] HEMATOLOGY Lymphocytes # 2.3 K/CMM 1.0 - 5.5 06/03/2011 Normal [facility] HEMATOLOGY Plt Morph Clumped (06/02/2011 19:30:00) 06/03/2011 Normal [facility] HEMATOLOGY Atypical Lymphs 6.0 % <=0.0 06/03/2011 HI [facility] HEMATOLOGY RBC Morph See Note (06/02/2011 19:30:00) 06/03/2011 Normal [facility] HEMATOLOGY Stomatocyte Slight *ABN* (06/02/2011 19:30:00) None Seen 06/03/2011 ABN [facility] HEMATOLOGY Bands 3.0 % 0.0 - 11.0 06/03/2011 Normal [facility] URINALYSIS Micro? Performed (06/02/2011 19:28:00) 06/03/2011 Normal [facility] URINALYSIS UA Sq Epi Occasional /LPF (06/02/2011 19:28:00) Few 06/03/2011 Normal [facility] URINALYSIS UA RBC None Seen (06/02/2011 19:28:00) 0 - 2 06/03/2011 Normal [facility] URINALYSIS UA Bacteria Occasional /HPF (06/02/2011 19:28:00) None Seen 06/03/2011 Normal [facility] URINALYSIS UA WBC None Seen (06/02/2011 19:28:00) None Seen 06/03/2011 Normal [facility] URINALYSIS UA Bili Negative *NA* (06/02/2011 19:28:00) Negative 06/03/2011 NA [facility] URINALYSIS UA Blood Negative (06/02/2011 19:28:00) Negative 06/03/2011 Normal [facility] URINALYSIS UA Urobilinogen 1.0 EU/dL 0.1 - 1.0 06/03/2011 Normal [facility] URINALYSIS UA Nitrite Negative (06/02/2011 19:28:00) Negative 06/03/2011 Normal [facility] URINALYSIS UA Leuk Est Negative (06/02/2011 19:28:00) Negative 06/03/2011 Normal [facility] URINALYSIS UA Protein Negative mg/dL (06/02/2011 19:28:00) Negative 06/03/2011 Normal [facility] URINALYSIS UA pH 6.0 5.0 - 8.0 06/03/2011 Normal [facility] URINALYSIS UA Ketones Negative mg/dL *NA* (06/02/2011 19:28:00) Negative 06/03/2011 NA [facility] URINALYSIS UA Glucose 100 mg/dL *ABN* (06/02/2011 19:28:00) Negative 06/03/2011 ABN [facility] URINALYSIS UA Spec Grav 1.020 <=1.030 06/03/2011 Normal [facility] URINALYSIS UA Turbidity Clear (06/02/2011 19:28:00) Clear 06/03/2011 Normal [facility] URINALYSIS UA Color Yellow *NA* (06/02/2011 19:28:00) Yellow 06/03/2011 NA [facility] CHEMISTRY Lipase Lvl 102.0 U/L 73 - 393 02/14/2011 Normal [facility] CHEMISTRY AGAP 15.1 meq/L 10.0 - 20.0 02/14/2011 Normal [facility] CHEMISTRY Globulin 3.9 g/dL 2.0 - 4.0 02/14/2011 Normal [facility] CHEMISTRY B/C Ratio 9.0 6 - 25 02/14/2011 Normal [facility] CHEMISTRY A/G Ratio 1.1 0.7 - 1.6 02/14/2011 Normal [facility] CHEMISTRY ALT 48.0 U/L 0 - 65 02/14/2011 Normal [facility] CHEMISTRY Alk Phos 87.0 U/L 39 - 136 02/14/2011 Normal [facility] CHEMISTRY Bili Total 0.7 mg/dL 0.2 - 1.3 02/14/2011 Normal [facility] CHEMISTRY AST 34.0 U/L 0 - 37 02/14/2011 Normal [facility] CHEMISTRY Albumin Lvl 4.3 g/dL 3.5 - 5.0 02/14/2011 Normal [facility] CHEMISTRY Total Protein 8.2 g/dL 6.4 - 8.4 02/14/2011 Normal [facility] CHEMISTRY Calcium Lvl 9.2 mg/dL 8.5 - 10.5 02/14/2011 Normal [facility] CHEMISTRY CO2 27.0 meq/L 24 - 32 02/14/2011 Normal [facility] CHEMISTRY BUN 12.0 mg/dL 7 - 22 02/14/2011 Normal [facility] CHEMISTRY Creatinine Lvl 1.4 mg/dL 0.5 - 1.4 02/14/2011 Normal [facility] CHEMISTRY Glucose Lvl 167.0 mg/dL 02/14/2011 NA 1Interpretive Data: Reference Ranges : 0 - 7 days : 41 - 90 mg/dL7 days - 150 yrs : 70 - 99 mg/dL (fasting), based on the clinical recommendations of the [place] [employer]. [facility] CHEMISTRY Sodium Lvl 139.0 meq/L 135 - 145 02/14/2011 Normal [facility] CHEMISTRY Potassium Lvl 4.1 meq/L 3.5 - 5.1 02/14/2011 Normal [facility] CHEMISTRY Chloride Lvl 101.0 meq/L 95 - 109 02/14/2011 Normal [facility] HEMATOLOGY Eosinophils 0.7 % 0.0 - 4.0 02/14/2011 Normal [facility] HEMATOLOGY Lymphocytes # 1.1 K/CMM 1.0 - 5.5 02/14/2011 Normal [facility] HEMATOLOGY Segs-Bands # 11.0 K/CMM 1.5 - 8.1 02/14/2011 [facility] HEMATOLOGY Monocytes # 0.5 K/CMM 0.0 - 0.8 02/14/2011 Normal [facility] HEMATOLOGY Basophils 0.0 % 0.0 - 1.0 02/14/2011 Normal [facility] HEMATOLOGY Eosinophils # 0.1 K/CMM 0.0 - 0.5 02/14/2011 Normal [facility] HEMATOLOGY Basophils # 0.0 K/CMM 0.0 - 0.2 02/14/2011 Normal [facility] HEMATOLOGY Monocytes 3.9 % 2.0 - 12.0 02/14/2011 Normal [facility] HEMATOLOGY Lymphocytes 8.3 % 20.0 - 40.0 02/14/2011 LOW [facility] HEMATOLOGY Segs 87.1 % 45.0 - 75.0 02/14/2011 HI [facility] HEMATOLOGY RBC Morph Normal (02/14/2011 17:33:00) ?? 02/14/2011 Normal [facility] HEMATOLOGY Plt Morph Normal (02/14/2011 17:33:00) ?? 02/14/2011 Normal [facility] HEMATOLOGY RDW 13.2 % 11.5 - 14.5 02/14/2011 Normal [facility] HEMATOLOGY MPV 8.7 fL 7.4 - 10.4 02/14/2011 Normal [facility] HEMATOLOGY Platelet 215.0 K/CMM 133 - 450 02/14/2011 Normal [facility] HEMATOLOGY Hct 45.2 % 42.0 - 54.0 02/14/2011 Normal [facility] HEMATOLOGY Hgb 15.8 g/dL 14.0 - 18.0 02/14/2011 Normal [facility] HEMATOLOGY MCHC 35.0 g/dL 32.0 - 36.0 02/14/2011 Normal [facility] HEMATOLOGY RBC 5.1 M/CMM 4.70 - 6.10 02/14/2011 Normal [facility] HEMATOLOGY WBC 12.7 K/CMM 3.7 - 10.4 02/14/2011 HI [facility] HEMATOLOGY MCH 31.0 pg 27.0 - 31.0 02/14/2011 Normal [facility] HEMATOLOGY MCV 88.7 fL 80.0 - 94.0 02/14/2011 Normal [facility] URINALYSIS UA Protein Negative mg/dL (02/14/2011 17:33:00) ?? >Negative 02/14/2011 Normal [facility] URINALYSIS UA Glucose Negative mg/dL (02/14/2011 17:33:00) ?? >Negative 02/14/2011 Normal [facility] URINALYSIS UA Spec Grav 1.01 <<=1.030 02/14/2011 Normal [facility] URINALYSIS UA Turbidity Clear (02/14/2011 17:33:00) ?? >Clear 02/14/2011 Normal [facility] URINALYSIS UA Color Yellow *NA* (02/14/2011 17:33:00) ?? >Yellow 02/14/2011 NA [facility] URINALYSIS UA pH 5.5 5.0 - 8.0 02/14/2011 Normal [facility] URINALYSIS UA Blood Negative (02/14/2011 17:33:00) ?? >Negative 02/14/2011 Normal [facility] URINALYSIS UA Bili Negative *NA* (02/14/2011 17:33:00) ?? >Negative 02/14/2011 NA [facility] URINALYSIS UA Ketones Negative mg/dL *NA* (02/14/2011 17:33:00) ?? >Negative 02/14/2011 NA [facility] URINALYSIS UA Nitrite Negative (02/14/2011 17:33:00) ?? >Negative 02/14/2011 Normal [facility] URINALYSIS UA Urobilinogen 0.2 EU/dL 0.1 - 1.0 02/14/2011 Normal [facility] URINALYSIS UA Leuk Est Negative (02/14/2011 17:33:00) ?? >Negative 02/14/2011 Normal [facility] URINALYSIS UA Sq Epi Rare /LPF (02/14/2011 17:33:00) ?? >Few 02/14/2011 Normal [facility] URINALYSIS UA WBC None Seen (02/14/2011 17:33:00) ?? >None Seen 02/14/2011 Normal [facility] URINALYSIS UA RBC None Seen (02/14/2011 17:33:00) ?? >0 - 2 02/14/2011 Normal [facility] URINALYSIS UA Bacteria Occasional /HPF (02/14/2011 17:33:00) ?? >None Seen 02/14/2011 Normal [facility] URINALYSIS Micro? Performed (02/14/2011 17:33:00) ?? 02/14/2011 Normal [facility] Vital Signs Vital Sign Value Date Comments Source Temperature Oral (F) 98.3 F 10/22/2017 [facility] Systolic (mm Hg) 138 10/22/2017 [facility] Diastolic (mm Hg) 92 10/22/2017 [facility] Respitory Rate 16 10/22/2017 [facility] Heart Rate 78 10/22/2017 [facility] BMI Calculated 33.07 10/22/2017 [facility] Weight 104.545 10/22/2017 [facility] Respitory Rate 16 10/22/2017 [facility] Temperature Oral (F) 98.1 F 10/22/2017 [facility] Height 177.8 cm 10/22/2017 [facility] Systolic (mm Hg) 149 10/22/2017 [facility] Diastolic (mm Hg) 89 10/22/2017 [facility] Heart Rate 81 10/22/2017 [facility] Temperature Oral (F) 97.6 F 06/27/2015 [facility] Systolic (mm Hg) 121 06/27/2015 [facility] Diastolic (mm Hg) 72 06/27/2015 [facility] Systolic (mm Hg) 144 06/27/2015 [facility] Diastolic (mm Hg) 77 06/27/2015 [facility] Systolic (mm Hg) 135 06/27/2015 [facility] Diastolic (mm Hg) 71 06/27/2015 [facility] Temperature Oral (F) 97.8 F 06/27/2015 [facility] Respitory Rate 18 06/26/2015 [facility] Respitory Rate 18 06/26/2015 [facility] Respitory Rate 16 06/26/2015 [facility] Weight 107.273 06/26/2015 [facility] BMI Calculated 33.93 06/26/2015 [facility] Height 177.8 cm 06/26/2015 [facility] Temperature Oral (F) 97.2 F 06/26/2015 [facility] Weight 104.545 06/21/2015 [facility] BMI Calculated 34.04 06/21/2015 [facility] Height 175.26 cm 06/21/2015 [facility] Height 177.8 cm 06/13/2014 [facility] Weight 101.364 06/13/2014 [facility] BMI Calculated 32.06 06/13/2014 [facility] Respitory Rate 18 11/08/2013 [facility] Heart Rate 54 11/08/2013 [facility] Diastolic (mm Hg) 79 11/08/2013 [facility] Systolic (mm Hg) 136 11/08/2013 [facility] Heart Rate 53 11/08/2013 [facility] Respitory Rate 18 11/08/2013 [facility] Diastolic (mm Hg) 78 11/08/2013 [facility] Systolic (mm Hg) 134 11/08/2013 [facility] Respitory Rate 16 11/08/2013 [facility] Heart Rate 61 11/08/2013 [facility] Systolic (mm Hg) 123 11/08/2013 [facility] Diastolic (mm Hg) 66 11/08/2013 [facility] Temperature Oral (F) 97.8 F 11/03/2013 [facility] BMI Calculated 32.15 11/03/2013 [facility] Weight 104.545 11/03/2013 [facility] Height 180.34 cm 11/03/2013 [facility] Systolic (mm Hg) 101 08/06/2013 [facility] Respitory Rate 17 08/06/2013 [facility] Diastolic (mm Hg) 60 08/06/2013 [facility] Heart Rate 72 08/06/2013 [facility] Temperature Oral (F) 97.4 F 08/06/2013 [facility] Respitory Rate 16 08/06/2013 [facility] Heart Rate 58 08/06/2013 [facility] Respitory Rate 18 08/06/2013 [facility] Systolic (mm Hg) 129 08/06/2013 [facility] Diastolic (mm Hg) 78 08/06/2013 [facility] Temperature Oral (F) 97.4 F 08/06/2013 [facility] Heart Rate 60 08/06/2013 [facility] Diastolic (mm Hg) 69 08/06/2013 [facility] Systolic (mm Hg) 116 08/06/2013 [facility] Temperature Oral (F) 97.6 F 08/06/2013 [facility] Height 177.8 cm 08/01/2013 [facility] BMI Calculated 33.93 08/01/2013 [facility] Weight 107.273 08/01/2013 [facility] Respitory Rate 20 06/22/2011 [facility] Temperature Oral (F) 98.3 F 06/22/2011 [facility] Heart Rate 63 06/22/2011 [facility] Systolic (mm Hg) 132 06/22/2011 [facility] Diastolic (mm Hg) 71 06/22/2011 [facility] Systolic (mm Hg) 144 06/22/2011 [facility] Diastolic (mm Hg) 74 06/22/2011 [facility] Temperature Oral (F) 98.0 F 06/22/2011 [facility] Respitory Rate 20 06/22/2011 [facility] Heart Rate 76 06/22/2011 [facility] Systolic (mm Hg) 122 06/22/2011 [facility] Diastolic (mm Hg) 67 06/22/2011 [facility] Respitory Rate 18 06/22/2011 [facility] Temperature Oral (F) 97.9 F 06/22/2011 [facility] Heart Rate 63 06/22/2011 [facility] Weight 100.000 06/13/2011 [facility] Height 180.34 cm 06/13/2011 [facility] Weight 100.000 06/13/2011 [facility] Height 180.34 cm 06/13/2011 [facility] Systolic (mm Hg) 147 06/05/2011 [facility] Diastolic (mm Hg) 87 06/05/2011 [facility] Heart Rate 86 06/05/2011 [facility] Respitory Rate 20 06/05/2011 [facility] Temperature Oral (F) 98.0 F 06/05/2011 [facility] Respitory Rate 20 06/05/2011 [facility] Temperature Oral (F) 97.7 F 06/05/2011 [facility] Heart Rate 69 06/05/2011 [facility] Systolic (mm Hg) 124 06/05/2011 [facility] Diastolic (mm Hg) 79 06/05/2011 [facility] Diastolic (mm Hg) 73 06/05/2011 [facility] Respitory Rate 16 06/05/2011 [facility] Systolic (mm Hg) 119 06/05/2011 [facility] Temperature Oral (F) 97.8 F 06/05/2011 [facility] Heart Rate 74 06/05/2011 [facility] Height 177.80 cm 06/03/2011 [facility] Weight 104.545 06/03/2011 [facility] Height 177.80 cm 06/02/2011 [facility] Weight 100.000 06/02/2011 [facility] Diastolic (mm Hg) 66.0 02/15/2011 [facility] Heart Rate 82.0 02/15/2011 [facility] Respitory Rate 18.0 02/15/2011 [facility] Systolic (mm Hg) 108.0 02/15/2011 [facility] Temperature Oral (F) 98.0 F 02/15/2011 [facility] Respitory Rate 18.0 02/15/2011 [facility] Heart Rate 84.0 02/15/2011 [facility] Diastolic (mm Hg) 87.0 02/15/2011 [facility] Systolic (mm Hg) 138.0 02/15/2011 [facility] Temperature Oral (F) 97.7 F 02/14/2011 [facility] Diastolic (mm Hg) 89.0 02/14/2011 [facility] Systolic (mm Hg) 139.0 02/14/2011 [facility] Heart Rate 86.0 02/14/2011 [facility] Respitory Rate 19.0 02/14/2011 [facility] Weight 106.818 02/14/2011 [facility] Height 177.8 cm 02/14/2011 [facility] Temperature Oral (F) 97.7 F 02/14/2011 [facility] Encounters Location Location Details Encounter Type Encounter Number Reason For Visit Attending Provider ADM Date DC Date Status Source [facility] [id number] ELIZABETH TATA 02/14/2011 02/14/2011 Active [facility] In[facility] [id number] DIVERTICULITIS RAGINI LAGOS 06/02/2011 06/05/2011 Active [facility] Inpatient [id number] WALT HUTCHINSON 06/19/2011 06/22/2011 Active [facility] Inpatient [id number] Mckenzie Rutledge 08/01/2013 08/06/2013 [facility] Bedded Outpatient [id number] Walt Hutchinson 11/08/2013 11/08/2013 [facility] Bedded Outpatient [id number] Joshua Pereraen 06/13/2014 06/13/2014 [facility] Outpatient [id number] Jacquelin Maldonado 06/21/2015 06/22/2015 [facility] Bedded Outpatient [id number] Jacquelin Maldonado 06/26/2015 06/27/2015 [facility] [id number] PHILLIP BETANCOURT MD 07/27/2017 [facility] [id number] BELL XAVIER MD 08/13/2017 [facility] Emergency [id number] Lucie Calero 10/22/2017 10/22/2017 [facility] Departed Emergency Room [id number] RAGINI JOSE MD 01/07/2018 01/08/2018 [facility] Outpatient [id number] [facility] Procedures Procedure Code Date Perfomer Comments Source X-ray of chest, two views [id number] 08/13/2017 [place] [facility] Computed tomography of chest without contrast [id number] 07/27/2017 [place] [facility] Cataract extraction and insertion of intraocular lens [id number] 02/22/2010 [facility] Cataract extraction and insertion of intraocular lens [id number] 02/22/2010 [facility] Knee reoperations [id number] 08/30/2009 [facility] Knee reoperations [id number] 08/30/2009 [facility] Knee joint operation [id number] 06/21/2009 [facility] Knee joint operation [id number] 06/21/2009 [facility] Bursa operation<sup>1</sup> [id number] left knee [facility] Cardiac catheterization [id number] [facility] Cholecystectomy [id number] [facility] Colon operation [id number] [facility] Foot joint operations [id number] [facility] Nasal operation [id number] [facility] Rotator cuff repair<sup>2</sup> [id number] right [facility] Tendon operation [id number] [facility] Bursa operation<sup>1</sup> [id number] left knee [facility] Cardiac catheterization [id number] [facility] Cholecystectomy [id number] [facility] Colon operation [id number] [facility] Foot joint operations [id number] [facility] Nasal operation [id number] [facility] Rotator cuff repair<sup>2</sup> [id number] right [facility] Tendon operation [id number] [facility]
--- OUTSIDE RECORDS SUMMARY | 2018-07-05 17:40 | XMS REPORT | CCD ---
Author Author Auto Generated Organization [facility] Address Unknown Phone Unavailable Care Team Providers Care Babbitt Spinner Name Role Phone Georgia Calderón CP Unavailable Nancy Bowser CP Unavailable Cary Olemdo CP Unavailable Mariya Koch CP Unavailable Sky Snowden CP Unavailable ChartServer, Login CP Unavailable Lily Brooks CP Unavailable Moira Julien CP [phone] Garrett Hawkins CP [phone] SYSTEM, SYSTEM CP Unavailable Jakob Sands CP Lona Borrego CP Unavailable Elbert Joyce CP Unavailable Pooja Patricio CP Unavailable Bunny Lenz CP Greg Villafuerte CP Amy Sanches CP Unavailable Jailene Rangel CP Unavailable Allergies, Adverse Reactions, Alerts Substance Reaction Status Darvon ?? Active NKDA Darvon?? Canceled Medications Medication Instructions Start Date End Date Status [place] 5/325 oral 1 tab, PO, Q4H, PRN, 10 tab, for 02/14/2011 ?? Ordered tablet pain, Substitution Allowed, Maintenance, TAB Dilaudid 1 mg, 1 mL, Route: IV, Drug form: 02/14/2011 02/14/2011 Completed SOLN, ONCE, Priority: STAT, Start date: 02/14/11 20:00:00, Stop date: 02/14/11 20:00:00 influenza virus 0.5 ml, Route: IM, Drug Form: INJ, 02/29/2008 03/01/2008 Completed vaccine, inactivated ONCALL, Start date: 02/29/08 4:55:45, Stop date: 03/30/08 4:40:45 ondansetron 4 mg, 2 mL, Route: IVP, Drug form: 02/14/2011 02/14/2011 Completed INJ, ONCE, Priority: STAT, Start date: 02/14/11 17:33:00, Stop date: 02/14/11 17:33:00 hydromorphone 1 mg, 1 mL, Route: IVP, Drug form: 02/14/2011 02/14/2011 Completed SOLN, ONCE, Priority: STAT, Start date: 02/14/11 17:33:00, Stop date: 02/14/11 17:33:00 Immunizations Vaccine Date Status influenza virus vaccine, inactivated 03/01/2008 Not Done Vital Signs Most recent to oldest [Reference Range]: 1 2 3 Height 177.80 cm (02/14/2011 17:09:00) ? Temperature Oral [96.4-99.1 DegF] 98 DegF (02/14/2011 21:10:00) ?? 97.7 DegF (02/14/2011 18:38:00) ?? 97.7 DegF (02/14/2011 17:09:00) ?? Systolic Blood Pressure [90-140 mmHg] 108 mmHg (02/14/2011 21:10:00) ?? 138 mmHg (02/14/2011 20:06:00) ?? 139 mmHg (02/14/2011 18:38:00) ?? Diastolic Blood Pressure [60-90 mmHg] 66 mmHg (02/14/2011 21:10:00) ?? 87 mmHg (02/14/2011 20:06:00) ?? 89 mmHg (02/14/2011 18:38:00) ?? Respiratory Rate [14-20 BRMIN] 18 BRMIN (02/14/2011 21:10:00) ?? 18 BRMIN (02/14/2011 20:06:00) ?? 19 BRMIN (02/14/2011 18:38:00) ?? Peripheral Pulse Rate [60-100 bpm] 82 bpm (02/14/2011 21:10:00) ?? 84 bpm (02/14/2011 20:06:00) ?? 86 bpm (02/14/2011 18:38:00) ?? Weight 106.818 kg (02/14/2011 17:09:00) ? Results URINALYSIS Most recent to oldest [Reference Range]: 1 UA Turbidity [>Clear] Clear (02/14/2011 17:33:00) ?? UA Color [>Yellow] Yellow *NA* (02/14/2011 17:33:00) ?? UA pH [5.0-8.0] 5.5 (02/14/2011 17:33:00) ?? UA Spec Grav [<<=1.030] 1.010 (02/14/2011 17:33:00) ?? UA Glucose [>Negative mg/dL] Negative mg/dL (02/14/2011 17:33:00) ?? UA Blood [>Negative] Negative (02/14/2011 17:33:00) ?? UA Ketones [>Negative mg/dL] Negative mg/dL *NA* (02/14/2011 17:33:00) ?? UA Protein [>Negative mg/dL] Negative mg/dL (02/14/2011 17:33:00) ?? UA Urobilinogen [0.1-1.0 EU/dL] 0.2 EU/dL (02/14/2011 17:33:00) ?? UA Bili [>Negative] Negative *NA* (02/14/2011 17:33:00) ?? UA Leuk Est [>Negative] Negative (02/14/2011 17:33:00) ?? UA Nitrite [>Negative] Negative (02/14/2011 17:33:00) ?? UA WBC [>None Seen] None Seen (02/14/2011 17:33:00) ?? UA RBC [>0-2] None Seen (02/14/2011 17:33:00) ?? UA Bacteria [>None Seen /HPF] Occasional /HPF (02/14/2011 17:33:00) ?? UA Sq Epi [>Few /LPF] Rare /LPF (02/14/2011 17:33:00) ?? Micro? Performed (02/14/2011 17:33:00) ?? CHEMISTRY Most recent to oldest [Reference Range]: 1 Sodium Lvl [135-145 mEq/L] 139 mEq/L (02/14/2011 17:33:00) ?? Potassium Lvl [3.5-5.1 mEq/L] 4.1 mEq/L (02/14/2011 17:33:00) ?? Chloride Lvl [95-109 mEq/L] 101 mEq/L (02/14/2011 17:33:00) ?? CO2 [24-32 mEq/L] 27 mEq/L (02/14/2011 17:33:00) ?? AGAP [10.0-20.0 mEq/L] 15.1 mEq/L (02/14/2011 17:33:00) ?? Creatinine Lvl [0.5-1.4 mg/dL] 1.4 mg/dL (02/14/2011 17:33:00) ?? BUN [7-22 mg/dL] 12 mg/dL (02/14/2011 17:33:00) ?? B/C Ratio [6-25] 9 (02/14/2011 17:33:00) ?? Glucose Lvl 167 mg/dL 1 *NA* (02/14/2011 17:33:00) ?? Total Protein [6.4-8.4 g/dL] 8.2 g/dL (02/14/2011 17:33:00) ?? Albumin Lvl [3.5-5.0 g/dL] 4.3 g/dL (02/14/2011 17:33:00) ?? Globulin [2.0-4.0 g/dL] 3.9 g/dL (02/14/2011 17:33:00) ?? A/G Ratio [0.7-1.6] 1.1 (02/14/2011 17:33:00) ?? Calcium Lvl [8.5-10.5 mg/dL] 9.2 mg/dL (02/14/2011 17:33:00) ?? ALT [0-65 U/L] 48 U/L (02/14/2011 17:33:00) ?? AST [0-37 U/L] 34 U/L (02/14/2011 17:33:00) ?? Alk Phos [39-136 U/L] 87 U/L (02/14/2011 17:33:00) ?? Bili Total [0.2-1.3 mg/dL] 0.7 mg/dL (02/14/2011 17:33:00) ?? Lipase Lvl [73-393 U/L] 102 U/L (02/14/2011 17:33:00) ?? 1Interpretive Data: Reference Ranges : 0 - 7 days : 41 - 90 mg/dL7 days - 150 yrs : 70 - 99 mg/dL (fasting), based on the clinical recommendations of the [place] [employer]. HEMATOLOGY Most recent to oldest [Reference Range]: 1 WBC [3.7-10.4 K/CMM] 12.7 K/CMM *HI* (02/14/2011 17:33:00) ?? RBC [4.70-6.10 M/CMM] 5.10 M/CMM (02/14/2011 17:33:00) ?? Hgb [14.0-18.0 g/dL] 15.8 g/dL (02/14/2011 17:33:00) ?? Hct [42.0-54.0 %] 45.2 % (02/14/2011 17:33:00) ?? MCV [80.0-94.0 fL] 88.7 fL (02/14/2011 17:33:00) ?? MCH [27.0-31.0 pg] 31.0 pg (02/14/2011 17:33:00) ?? MCHC [32.0-36.0 g/dL] 35.0 g/dL (02/14/2011 17:33:00) ?? RDW [11.5-14.5 %] 13.2 % (02/14/2011 17:33:00) ?? Platelet [133-450 K/CMM] 215 K/CMM (02/14/2011 17:33:00) ?? MPV [7.4-10.4 fL] 8.7 fL (02/14/2011 17:33:00) ?? Segs [45.0-75.0 %] 87.1 % *HI* (02/14/2011 17:33:00) ?? Lymphocytes [20.0-40.0 %] 8.3 % *LOW* (02/14/2011 17:33:00) ?? Monocytes [2.0-12.0 %] 3.9 % (02/14/2011 17:33:00) ?? Eosinophils [0.0-4.0 %] 0.7 % (02/14/2011 17:33:00) ?? Basophils [0.0-1.0 %] 0.0 % (02/14/2011 17:33:00) ?? Segs-Bands # [1.5-8.1 K/CMM] 11.0 K/CMM *HI* (02/14/2011 17:33:00) ?? Lymphocytes # [1.0-5.5 K/CMM] 1.1 K/CMM (02/14/2011 17:33:00) ?? Monocytes # [0.0-0.8 K/CMM] 0.5 K/CMM (02/14/2011 17:33:00) ?? Eosinophils # [0.0-0.5 K/CMM] 0.1 K/CMM (02/14/2011 17:33:00) ?? Basophils # [0.0-0.2 K/CMM] 0.0 K/CMM (02/14/2011 17:33:00) ?? RBC Morph Normal (02/14/2011 17:33:00) ?? Plt Morph Normal (02/14/2011 17:33:00) ??
--- OUTSIDE RECORDS SUMMARY | 2018-07-05 17:40 | XMS REPORT | CCD ---
Author Author Auto Generated Organization [facility] Address Unknown Phone Unavailable Care Team Providers Care Grinder Chipper Name Role Phone Arsalan Hutchinson RP Allergies, Adverse Reactions, Alerts Substance Reaction Status codeine Active Darvocet A500 Active Darvon Active HYDROcodone Active NKDA Darvon Canceled Vicodin Rash, NOS Active Problem List Condition Effective Dates Status Diverticulitis Active HT - Hypertension Active Laparoscopic sigmoid colectomy Active Medications Medication Instructions Start Date End Date Status ondansetron 4 mg, Route: IVP, ONCE, PRN Nausea 06/19/2011 06/19/2011 Discontinued & Vomiting, Start date: 06/19/11 13:37:00 acetaminophen-oxycod 2 tab, Route: PO, Drug Form: TAB, 06/19/2011 06/19/2011 Discontinued one 325 mg-5 mg oral Q4H, PRN Pain Score 7-10, Start tablet date: 06/19/11 13:37:00, Duration: 30 day, Stop date: 07/19/11 13:36:00 acetaminophen-oxycod 1 tab, Route: PO, Drug Form: TAB, 06/19/2011 06/19/2011 Discontinued one 325 mg-5 mg oral Q4H, PRN Pain Score 4-6, Start tablet date: 06/19/11 13:37:00, Duration: 30 day, Stop date: 07/19/11 13:36:00 naloxone 0.04 mg, Route: IVP, Q2MIN, PRN 06/19/2011 06/19/2011 Discontinued Narcotic Reversal, Start date: 06/19/11 13:37:00, Duration: 8 doses or times, Stop date: Limited # of times flumazenil 0.2 mg, Route: IVP, PRN, PRN 06/19/2011 06/19/2011 Discontinued Benzodiazepine Reversal, Initial dose, Start date: 06/19/11 13:37:00, Duration: 30 day, Stop date: 07/19/11 14:36:00 fentanyl 25 microgram, Route: IVP, Q5Min, 06/19/2011 06/19/2011 Discontinued PRN Pain Score 4-6, Start date: 06/19/11 13:37:00, Duration: 4 doses or times, Stop date: Limited # of times hydromorphone 0.5 mg, Route: IVP, Q5Min, PRN Pain 06/19/2011 06/19/2011 Discontinued Score 4-6, Start date: 06/19/11 13:37:00, Duration: 5 doses or times, Stop date: Limited # of times lidocaine 1% 0.5 mL, Route: SUB-Q, ONCALL, Start 06/19/2011 06/19/2011 Discontinued date: 06/19/11 9:00:00, Duration: 1 doses or times Lactated Ringers 1,000 mL, Rate: 25 ml/hr, Infuse 06/19/2011 06/19/2011 Discontinued Injection IV 1,000 over: 40 hr, Route: IV, Total mL Volume: 1,000, Start date: 06/19/11 8:57:00, Duration: 30 day, Stop date: 07/19/11 8:56:00 Dextrose 50% Syringe 25 gm, 50 mL, Route: IVP, Drug 06/19/2011 06/22/2011 Discontinued Form: INJ, PRN, PRN Blood Glucose Results, Start date: 06/19/11 13:20:00, Duration: 30 day, Stop date: 07/19/11 14:19:00 Dextrose 50% Syringe 12.5 gm, 25 mL, Route: IVP, Drug 06/19/2011 06/22/2011 Discontinued Form: INJ, PRN, PRN Blood Glucose Results, Start date: 06/19/11 13:20:00, Duration: 30 day, Stop date: 07/19/11 14:19:00 glucagon 1 mg, Route: IM, Drug form: 06/19/2011 06/22/2011 Discontinued PDR/INJ, PRN, PRN Blood Glucose Results, Start date: 06/19/11 13:20:00, Duration: 30 day, Stop date: 07/19/11 14:19:00 ketorolac 15 mg, 1 mL, Route: IV, Drug form: 06/20/2011 06/22/2011 Discontinued INJ, Q6H, Start date: 06/20/11 12:00:00, Duration: 72 hr, Stop date: 06/23/11 6:00:00 ketorolac 30 mg/mL 30 mg, 1 mL, Route: IV, Drug form: 06/20/2011 06/20/2011 Completed injectable solution INJ, ONCE, Start date: 06/20/11 9:34:00, Stop date: 06/20/11 9:34:00 alvimopan 12 mg, Route: PO, Drug form: CAP, 06/19/2011 06/19/2011 Completed ONCE, Start date: 06/19/11 8:58:00, Stop date: 06/19/11 8:58:00 Invanz 1 gm, Route: IVPB, ONCALL, Start 06/19/2011 06/19/2011 Discontinued date: 06/19/11 9:00:00, Duration: 30 day, Stop date: 07/19/11 9:59:00 Restoril 30 mg, 2 cap, Route: PO, Drug form: 06/21/2011 06/22/2011 Discontinued CAP, Bedtime, PRN Sleep, Start date: 06/21/11 15:20:00, Duration: 30 day, Stop date: 07/21/11 15:19:00 Protonix 40 mg, 1 tab, Route: PO, Drug form: 06/21/2011 06/22/2011 Discontinued ECTAB, Before Dinner, Start date: 06/21/11 16:30:00, Duration: 30 day, Stop date: 07/20/11 16:30:00 verapamil 120 mg, 1 tab, Route: PO, Drug 06/21/2011 06/22/2011 Discontinued form: ERTAB, Q12H, Start date: 06/21/11 17:00:00, Duration: 30 day, Stop date: 07/21/11 9:00:00 influenza virus 0.5 ml, Route: IM, Drug Form: INJ, 02/29/2008 03/01/2008 Completed vaccine, inactivated ONCALL, Start date: 02/29/08 4:55:45, Stop date: 03/30/08 4:40:45 nalbuphine 2 mg, 0.2 mL, Route: IVP, Drug 06/19/2011 06/21/2011 Discontinued form: INJ, Q2H, PRN Itching, Start date: 06/19/11 13:22:00, Duration: 5 doses or times, Stop date: Limited # of times hydromorphone 0.2 6 mg, 30 mL, Route: IV, PSYCHOLOGY TECHNICIAN Dose: 06/19/2011 06/21/2011 Discontinued mg/mL PSYCHOLOGY TECHNICIAN (6 mg/30 0.2 mg, PSYCHOLOGY TECHNICIAN Lockout: 10 minutes, mL) INJ Syringe 30 Continuous Basal Rate: 0 mg, 4 Hour mL 6 mg Limit (In MG): 6, Drug Form: INJ, Continuous, Pain, Start date: 06/19/11 13:22:00, Stop date: 07/19/11 14:21:00 naloxone 0.04 mg, 0.1 mL, Route: IVP, Drug 06/19/2011 06/22/2011 Discontinued form: INJ, Q2MIN, PRN Narcotic Reversal, Start date: 06/19/11 13:22:00, Duration: 30 day, Stop date: 07/19/11 14:21:00 Saline Flush 0.9% 5 ml, Route: IVP, Drug Form: INJ, 06/19/2011 06/22/2011 Discontinued PRN, PRN Line Flush, Start date: 06/19/11 13:22:00, Duration: 30 day, Stop date: 07/19/11 14:21:00 Entereg 12 mg, Route: PO, BID, Start date: 06/19/2011 06/19/2011 Deleted 06/19/11 17:00:00, Duration: 30 day, Stop date: 07/19/11 9:00:00 D5W 1/2NS + KCL 1,000 mL, Rate: 50 ml/hr, Infuse 06/19/2011 06/22/2011 Discontinued 20mEq/L 1000ml over: 20 hr, Route: IV, Total (Premix) 1,000 mL Volume: 1,000, Start date: 06/19/11 13:22:00, Stop date: 07/19/11 13:21:00 Lovenox 40 mg, 0.4 mL, Route: SUB-Q, Drug 06/20/2011 06/22/2011 Discontinued form: INJ, [id number], Start date: 06/20/11 10:00:00, Duration: 30 day, Stop date: 07/19/11 10:00:00 NS + KCL 20mEq/L 1,000 mL, Rate: 125 ml/hr, Infuse 06/19/2011 06/19/2011 Deleted 1000ml (Premix) over: 8 hr, Route: IV, Total 1,000 mL 1000 mL Volume: 1,000, Start date: 06/19/11 13:22:00, Duration: 30 day, Stop date: 07/19/11 13:21:00 acetaminophen 650 mg, 2 tab, Route: PO, Drug 06/19/2011 06/22/2011 Discontinued form: TAB, Q4H, PRN Pain Score 1-3, Start date: 06/19/11 13:22:00, Duration: 30 day, Stop date: 07/19/11 13:21:00 temazepam 15 mg, 1 cap, Route: PO, Drug form: 06/19/2011 06/22/2011 Discontinued CAP, Bedtime, PRN Insomnia, Start date: 06/19/11 13:22:00, Duration: 30 day, Stop date: 07/19/11 13:21:00 famotidine 20 mg, 2 mL, Route: IVP, Drug form: 06/19/2011 06/22/2011 Discontinued INJ, Q12H, Start date: 06/19/11 21:00:00, Duration: 30 day, Stop date: 07/19/11 9:00:00 diphenhydrAMINE 25 mg, 1 tab, Route: PO, Drug form: 06/19/2011 06/22/2011 Discontinued TAB, Bedtime, PRN Insomnia, Start date: 06/19/11 13:22:00, Duration: 30 day, Stop date: 07/19/11 13:21:00 promethazine 12.5 mg, 0.5 mL, Route: IM, Drug 06/19/2011 06/22/2011 Discontinued form: INJ, Q4H, PRN Nausea & Vomiting, Start date: 06/19/11 13:22:00, Duration: 30 day, Stop date: 07/19/11 13:21:00 ondansetron 4 mg, 2 mL, Route: IVP, Drug form: 06/19/2011 06/22/2011 Discontinued INJ, Q6H, PRN Nausea & Vomiting, Start date: 06/19/11 13:22:00, Duration: 30 day, Stop date: 07/19/11 13:21:00 tramadol 50 mg oral 50 mg, 1 tab, Route: PO, Drug form: 06/21/2011 06/22/2011 Discontinued tablet TAB, Q6H, PRN Pain, Start date: 06/21/11 16:03:00, Duration: 30 day, Stop date: 07/21/11 16:02:00 hydromorphone 1 mg, 1 mL, Route: IV, Drug form: 06/21/2011 06/22/2011 Discontinued SOLN, Q2H, PRN Pain, Start date: 06/21/11 16:00:00, Duration: 30 day, Stop date: 07/21/11 15:59:00 Effient 10 mg, 1 tab, Route: PO, Drug form: 06/23/2011 06/22/2011 Canceled TAB, Q-M-W-F, Start date: 06/23/11 9:00:00, Duration: 30 day, Stop date: 07/21/11 9:00:00 glipiZIDE 20 mg, 2 tab, Route: PO, Drug form: 06/22/2011 06/22/2011 Discontinued TAB, QAM, Start date: 06/22/11 9:00:00, Duration: 30 day, Stop date: 07/21/11 9:00:00 tramadol 100 mg oral 100 mg, 1 tab, PO, Daily, 30 tab, 06/22/2011 Ordered tablet, extended Substitution Allowed, ERTAB release omeprazole 40 mg, Route: PO, Drug form: DRC, 06/22/2011 06/21/2011 Deleted Daily, Start date: 06/22/11 9:00:00, Duration: 30 day, Stop date: 07/21/11 9:00:00 Ambien 10 mg, Route: PO, Drug form: TAB, 06/21/2011 06/21/2011 Deleted QPM, PRN Sleep, Start date: 06/21/11 14:53:00, Duration: 30 day, Stop date: 07/21/11 14:52:00 Benicar 40 mg, 2 tab, Route: PO, Drug form: 06/22/2011 06/22/2011 Discontinued TAB, Daily, Start date: 06/22/11 9:00:00, Duration: 30 day, Stop date: 07/21/11 9:00:00 nortriptyline 20 mg, 2 cap, Route: PO, Drug form: 06/22/2011 06/22/2011 Discontinued CAP, Daily, Start date: 06/22/11 9:00:00, Duration: 30 day, Stop date: 07/21/11 9:00:00 simvastatin 20 mg, 1 tab, Route: PO, Drug form: 06/21/2011 06/22/2011 Discontinued TAB, Bedtime, Start date: 06/21/11 21:00:00, Duration: 30 day, Stop date: 07/20/11 21:00:00 metFORmin 1,000 mg, 2 tab, Route: PO, Drug 06/22/2011 06/22/2011 Discontinued form: ERTAB, Daily, Start date: 06/22/11 9:00:00, Duration: 30 day, Stop date: 07/21/11 9:00:00 atenolol 25 mg, 1 tab, Route: PO, Drug form: 06/21/2011 06/22/2011 Discontinued TAB, BID, Start date: 06/21/11 17:00:00, Duration: 30 day, Stop date: 07/21/11 9:00:00 Entereg 12 mg, 1 cap, Route: PO, Drug form: 06/19/2011 06/22/2011 Discontinued CAP, BID, Start date: 06/19/11 9:00:00, Duration: 14 doses or times, Stop date: 06/25/11 17:00:00 Xanax 0.25 mg oral 0.25 mg, 1 tab, Route: PO, Drug 06/22/2011 06/22/2011 Discontinued tablet form: TAB, Daily, Start date: 06/22/11 9:00:00, Duration: 30 day, Stop date: 07/21/11 9:00:00 Immunizations Vaccine Date Status influenza virus vaccine, inactivated 03/01/2008 Not Done Vital Signs Most recent to oldest [Reference Range]: 1 2 3 Height 180.34 cm (06/13/2011 12:37:00) 180.34 cm (06/13/2011 12:28:00) Temperature Oral [96.4-99.1 DegF] 98.3 DegF (06/22/2011 12:00:00) 98.0 DegF (06/22/2011 07:48:00) 97.9 DegF (06/22/2011 04:00:00) Systolic Blood Pressure [90-140 mmHg] 132 mmHg (06/22/2011 12:00:00) 144 mmHg *HI* (06/22/2011 07:48:00) 122 mmHg (06/22/2011 04:00:00) Diastolic Blood Pressure [60-90 mmHg] 71 mmHg (06/22/2011 12:00:00) 74 mmHg (06/22/2011 07:48:00) 67 mmHg (06/22/2011 04:00:00) Respiratory Rate [14-20 BRMIN] 20 BRMIN (06/22/2011 12:00:00) 20 BRMIN (06/22/2011 07:48:00) 18 BRMIN (06/22/2011 04:00:00) Peripheral Pulse Rate [60-100 bpm] 63 bpm (06/22/2011 12:00:00) 76 bpm (06/22/2011 07:48:00) 63 bpm (06/22/2011 04:00:00) Weight 100.000 kg (06/13/2011 12:37:00) 100.000 kg (06/13/2011 12:28:00) Results BEDSIDE GLUCOSE TESTING Most recent to oldest [Reference Range]: 1 2 3 Gluc POC Lifscn [65-110 mg/dL] 116 mg/dL 1 *HI* (06/22/2011 07:46:00) 132 mg/dL 2 *HI* (06/21/2011 21:27:00) 117 mg/dL 3 *HI* (06/21/2011 16:57:00) Comment1 Notify RN/MD *NA* (06/22/2011 07:46:00) Notify RN/MD *NA* (06/21/2011 16:57:00) Notify RN/MD *NA* (06/21/2011 12:13:00) 1Interpretive Data: Upper Reportable Limit: 200 mg/dL. 2Interpretive Data: Upper Reportable Limit: 200 mg/dL. 3Interpretive Data: Upper Reportable Limit: 200 mg/dL. URINALYSIS Most recent to oldest [Reference Range]: 1 2 3 UA Turbidity [Clear] Clear (06/13/2011 12:30:00) UA Color [Yellow] Brown *ABN* (06/13/2011 12:30:00) UA pH [5.0-8.0] 5.5 (06/13/2011 12:30:00) UA Spec Grav [<=1.030] >=1.030 *ABN* (06/13/2011 12:30:00) UA Glucose [Negative] Negative (06/13/2011 12:30:00) UA Blood [Negative] Negative (06/13/2011 12:30:00) UA Ketones [Negative] Negative *NA* (06/13/2011 12:30:00) UA Protein [Negative] Negative (06/13/2011 12:30:00) UA Urobilinogen [0.1-1.0 EU/dL] 0.2 EU/dL (06/13/2011 12:30:00) UA Bili [Negative] Negative *NA* (06/13/2011 12:30:00) UA Leuk Est [Negative] Trace *ABN* (06/13/2011 12:30:00) UA Nitrite [Negative] Positive *ABN* (06/13/2011 12:30:00) UA WBC [None Seen /HPF] 0-2 /HPF (06/13/2011 12:30:00) UA RBC [0-2 /HPF] 0-2 /HPF (06/13/2011 12:30:00) UA Sq Epi [Few /LPF] Rare /LPF (06/13/2011 12:30:00) Micro? Performed (06/13/2011 12:30:00) BLOOD BANK RESULTS Most recent to oldest [Reference Range]: 1 2 3 ABO/Rh O NEG *Unknown* (06/13/2011 12:30:00) Antibody Scrn Negative (06/13/2011 12:30:00) CHEMISTRY Most recent to oldest [Reference Range]: 1 2 3 Sodium Lvl [135-145 mEq/L] 138 mEq/L (06/20/2011 05:21:00) Potassium Lvl [3.5-5.1 mEq/L] 4.0 mEq/L (06/20/2011 05:21:00) Chloride Lvl [95-109 mEq/L] 103 mEq/L (06/20/2011 05:21:00) CO2 [24-32 mEq/L] 27 mEq/L (06/20/2011 05:21:00) AGAP [10.0-20.0 mEq/L] 12.0 mEq/L (06/20/2011 05:21:00) Creatinine Lvl [0.5-1.4 mg/dL] 1.1 mg/dL (06/20/2011 05:21:00) BUN [7-22 mg/dL] 12 mg/dL (06/20/2011 05:21:00) Glucose Lvl 120 mg/dL 4 *NA* (06/20/2011 05:21:00) Calcium Lvl [8.5-10.5 mg/dL] 8.1 mg/dL *LOW* (06/20/2011 05:21:00) Phosphorus [2.5-4.5 mg/dL] 2.9 mg/dL (06/20/2011 05:21:00) Magnesium Lvl [1.8-2.4 mg/dL] 1.9 mg/dL (06/20/2011 05:21:00) 4Interpretive Data: Reference Ranges : 0 - 7 days : 41 - 90 mg/dL7 days - 150 yrs : 70 - 99 mg/dL (fasting), based on the clinical recommendations of the [place] [employer]. HEMATOLOGY Most recent to oldest [Reference Range]: 1 2 3 Hgb [14.0-18.0 g/dL] 12.5 g/dL *LOW* (06/20/2011 05:21:00) Hct [42.0-54.0 %] 37.0 % *LOW* (06/20/2011 05:21:00) PT [12.0-14.7 seconds] 15.2 seconds *HI* (06/13/2011 12:30:00) INR [0.85-1.17] 1.20 5 *HI* (06/13/2011 12:30:00) PTT [22.9-35.8 seconds] 38.0 seconds 6 *HI* (06/13/2011 12:30:00) 5Interpretive Data: RECOMMENDED RANGES FOR PROTIME INR: 2.0-3.0 for most medical and surgical thromboembolic states. 2.5-3.5 for artificial heart valves and recurrent embolism.INR SHOULD BE USED ONLY FOR PATIENTS ON STABLE ANTICOAGULANT THERAPY. 6Interpretive Data: Heparin Therapeutic Range: 57 - 92 Seconds
--- OUTSIDE RECORDS SUMMARY | 2018-07-05 17:41 | XMS REPORT | CCD ---
Author Author Auto Generated Organization [facility] [place] Address Unknown Phone Unavailable Care Team Providers Care Courtesy Bus Driver Name Role Phone Yoanna, Bunny Zuniga CP Allergies, Adverse Reactions, Alerts Substance Reaction Status codeine Active Darvocet A500 Active Darvon Active HYDROcodone Active Vicodin Rash, NOS Active Problem List Condition Effective Dates Status Diverticulitis Active HT - Hypertension Active Laparoscopic sigmoid colectomy Active Medications Medication Instructions Start Date End Date Status influenza virus 0.5 ml, Route: IM, Drug Form: INJ, 02/29/2008 03/01/2008 Completed vaccine, inactivated ONCALL, Start date: 02/29/08 4:55:45, Stop date: 03/30/08 4:40:45(Same as: Fluzone) Immunizations Vaccine Date Status influenza virus vaccine, inactivated 03/01/2008 Not Done
--- OUTSIDE RECORDS SUMMARY | 2018-07-05 17:41 | XMS REPORT | Summary of Care ---
Author Organization Unknown Address Unknown Phone Unavailable Encounter HQ Venkata(KATELYN) [id number] Date(s): 06/13/14 - 06/13/14 [facility] [address] [place] [address]- [phone] Discharge Disposition: Home Physician Attending: Joshua Gomez MD Physician Admitting: Joshua Gomez MD Physician_Referring: Joshua Gomez MD Vital Signs Most recent to 1 oldest [Reference Range]: Height 177.8 cm (06/13/14 10:48 AM) Weight 101.364 kg (06/13/14 10:48 AM) Body Mass Index 32.06 m2 (06/13/14 10:48 AM) Problem List Condition Effective Dates Status Health Status Informant Acid Active reflux(Confirmed) Anxiety(Confirmed) Active Arthritis(Confirmed) Active Bronchitis(Confirmed Active ) CAD (coronary artery Resolved disease)(Confirmed) Cataract(Confirmed) Resolved colon Resolved resection(Confirmed) COPD(Confirmed) Resolved COPD - Chronic Active obstructive pulmonary disease(Confirmed) Depression(Confirmed Active ) Diabetes Active mellitus(Confirmed) Diverticulitis(Confi Active rmed) Diverticulitis(Confi Resolved rmed) Heart Active disease(Confirmed) HT - Active Hypertension(Confirm ed) Hypercholesterolemia Active (Confirmed) Hypertension(Confirm Active ed) Laparoscopic sigmoid Active colectomy(Confirmed) left knee Resolved surgery(Confirmed) nasal Resolved surgery(Confirmed) Pneumonia(Confirmed) Active right foot Resolved fx(Confirmed) right rotator cuff Resolved repair(Confirmed) Shortness of Active breath(Confirmed) Sleep Resolved apnea(Confirmed) TIA(Confirmed) Resolved Allergies, Adverse Reactions, Alerts Substance Reaction Severity Status codeine Active Darvocet A500 Active Darvon Active HYDROcodone Active Vicodin Rash, NOS Active Medications aspirin 81 mg, Route: PO, Drug form: ECTAB, Daily, Dosing Weight 101.364, kg, Start date : 06/14/14 9:00:00, Duration: 30 day, Stop date: 07/13/14 9:00:00 Start Date: 06/14/14 Stop Date: 06/13/14 Status: Canceled aspirin 81 mg tablet, enteric coated 81 mg, PO, Daily, 0 Refill(s) Start Date: 06/13/14 Status: Ordered Effient See Instructions, 75 mg, 0 Refill(s) Special Instructions: 75 mg Start Date: 06/13/14 Status: Ordered hydrochlorothiazide-olmesartan 12.5 mg-20 mg oral tablet 1 tab, PO, Daily, # 30 tab, 0 Refill(s) Start Date: 06/13/14 Status: Ordered Results ELECTROLYTES Most recent to 1 oldest [Reference Range]: Sodium Lvl [135-145 136 mEq/L mEq/L] (06/13/14 10:50 AM) Potassium Lvl 3.7 mEq/L [3.5-5.1 mEq/L] (06/13/14 10:50 AM) Chloride Lvl [95-109 102 mEq/L mEq/L] (06/13/14 10:50 AM) CO2 [24-32 mEq/L] 25 mEq/L (06/13/14 10:50 AM) AGAP [10.0-20.0 12.7 mEq/L mEq/L] (06/13/14 10:50 AM) CHEM PANEL Most recent to 1 oldest [Reference Range]: Creatinine Lvl 1.2 mg/dL [0.5-1.4 mg/dL] (06/13/14 10:50 AM) eGFR 62 mL/min/1.73m2 1 *NA* (06/13/14 10:50 AM) BUN [7-22 mg/dL] 20 mg/dL (06/13/14 10:50 AM) Glucose Lvl [70-99 135 mg/dL 2 mg/dL] *HI* (06/13/14 10:50 AM) Calcium Lvl 8.7 mg/dL [8.5-10.5 mg/dL] (06/13/14 10:50 AM) 1Result Comment: The eGFR is calculated using [...] from the National Kidney Disease Education Program ( NKDEP) which additionally recommends that when the eGFR is used in patients with extremes of body mass index for purposes of drug dosing, the eGFR should be mul tiplied by the estimated BMI. 2Interpretive Data: Adult reference range values reflect the clinical guidelines of the [place] [employer]. HEMATOLOGY Most recent to 1 oldest [Reference Range]: WBC [3.7-10.4 K/CMM] 7.7 K/CMM (06/13/14 10:50 AM) RBC [4.70-6.10 5.07 M/CMM M/CMM] (06/13/14 10:50 AM) Hgb [14.0-18.0 g/dL] 15.2 g/dL (06/13/14 10:50 AM) Hct [42.0-54.0 %] 43.9 % (06/13/14 10:50 AM) MCV [80.0-94.0 fL] 86.6 fL (06/13/14 10:50 AM) MCH [27.0-31.0 pg] 29.9 pg (06/13/14 10:50 AM) MCHC [32.0-36.0 34.6 g/dL g/dL] (06/13/14 10:50 AM) RDW [11.5-14.5 %] 13.3 % (06/13/14 10:50 AM) Platelet [133-450 185 K/CMM K/CMM] (06/13/14 10:50 AM) MPV [7.4-10.4 fL] 8.4 fL (06/13/14 10:50 AM) Segs [45.0-75.0 %] 59.5 % (06/13/14 10:50 AM) Lymphocytes 29.2 % [20.0-40.0 %] (06/13/14 10:50 AM) Monocytes [2.0-12.0 8.1 % %] (06/13/14 10:50 AM) Eosinophils [0.0-4.0 2.9 % %] (06/13/14 10:50 AM) Basophils [0.0-1.0 0.3 % %] (06/13/14 10:50 AM) Segs-Bands # 4.6 K/CMM [1.5-8.1 K/CMM] (06/13/14 10:50 AM) Lymphocytes # 2.3 K/CMM [1.0-5.5 K/CMM] (06/13/14 10:50 AM) Monocytes # [0.0-0.8 0.6 K/CMM K/CMM] (06/13/14 10:50 AM) Eosinophils # 0.2 K/CMM [0.0-0.5 K/CMM] (06/13/14 10:50 AM) PT [12.0-14.7 14.7 seconds seconds] (06/13/14 10:50 AM) INR [0.85-1.17] 1.14 3 (06/13/14 10:50 AM) PTT [22.9-35.8 41.7 seconds 4 seconds] *HI* (06/13/14 10:50 AM) 3Interpretive Data: RECOMMENDED RANGES FOR PROTIME INR: 2.0-3.0 for most medical and surgical thromboembolic states. 2.5-3.5 for artificial heart valves and recurrent embolism. INR SHOULD BE USED ONLY FOR PATIENTS ON STABLE ANTICOAGULANT THERAPY. 4Interpretive Data: Heparin Therapeutic Range: 57 - 92 Seconds Immunizations No data available for this section Procedures No data available for this section Social History Social History Type Response Smoking Status Former smoker; Exposure to Tobacco Smoke None; Cigarette Smoking Last 365 Days No; Reg Smoking Cessation Counseling No Assessment and Plan No data available for this section
--- OUTSIDE RECORDS SUMMARY | 2018-07-05 17:41 | XMS REPORT | CCD ---
Author Author Auto Generated Organization [facility] Address Unknown Phone Unavailable Care Team Providers Care Egg Trayer Name Role Phone Elbert Lindsey CP Allergies, Adverse Reactions, Alerts Substance Reaction Status codeine Active Darvocet A500 Active Darvon Active NKDA Darvon Canceled Vicodin Rash, NOS Active Problem List Condition Effective Dates Status Diverticulitis Active HT - Hypertension Active Medications Medication Instructions Start Date End Date Status Flagyl 500 mg, 100 mL, Route: IVPB, Drug 06/03/2011 06/05/2011 Discontinued form: INJ, [id number], Start date: 06/03/11 1:00:00, Duration: 30 day, Stop date: 07/02/11 19:00:00 Cipro 400 mg, 200 mL, Route: IVPB, Drug 06/03/2011 06/05/2011 Discontinued form: INJ, [id number], Start date: 06/03/11 1:00:00, Duration: 30 day, Stop date: 07/02/11 13:00:00 verapamil 120 mg 120 mg, 1 tab, PO, BID, 06/02/2011 Ordered oral tablet, Substitution Allowed extended release tramadol 50 mg oral 50 mg, 1 tab, Route: PO, Drug form: 06/05/2011 06/05/2011 Completed tablet TAB, ONCE, Priority: NOW, Start date: 06/05/11 10:42:00, Stop date: 06/05/11 10:42:00 ondansetron 4 mg, 2 mL, Route: IVP, Drug form: 06/03/2011 06/03/2011 Completed INJ, ONCE, PRN Nausea & Vomiting, Start date: 06/03/11 0:18:00 Sodium Chloride 0.9% 1,000 mL, Rate: 75 ml/hr, Infuse 06/03/2011 06/05/2011 Discontinued IV 1,000 mL 1,000 mL over: 13.3 hr, Route: IV, Total Volume: 1,000, Start date: 06/03/11 0:18:00, Duration: 30 day, Stop date: 07/03/11 0:17:00 hydromorphone 1 mg, Route: IVP, ONCE, Priority: 06/02/2011 06/02/2011 Completed STAT, Start date: 06/02/11 22:13:00, Stop date: 06/02/11 22:13:00 Xanax 0.25 mg oral 0.25 mg, 1 tab, Route: PO, Drug 06/03/2011 06/05/2011 Discontinued tablet form: TAB, Daily, PRN as needed for anxiety, Start date: 06/03/11 7:25:00, Duration: 30 day, Stop date: 07/03/11 7:24:00 atenolol 25 mg, 1 tab, Route: PO, Drug form: 06/03/2011 06/05/2011 Discontinued TAB, Q12H, Start date: 06/03/11 9:00:00, Duration: 30 day, Stop date: 07/02/11 21:00:00 Stadol 1 spray, NASAL, Q8H, PRN, as needed 06/02/2011 Ordered for pain, Substitution Allowed Roy[place] 10/325 oral Route: PO, Q6H, PRN as needed for 06/05/2011 06/05/2011 Discontinued tablet pain, Start date: 06/05/11 10:26:00, Duration: 30 day, Stop date: 07/05/11 10:25:00 Lovenox 40 mg, 0.4 mL, Route: SUB-Q, Drug 06/03/2011 06/05/2011 Discontinued form: INJ, [id number], Start date: 06/03/11 9:00:00, Duration: 30 day, Stop date: 07/02/11 9:00:00 Zosyn 3.375 gm, Route: IVPB, ONCE, 06/02/2011 06/02/2011 Completed Priority: STAT, Start date: 06/02/11 22:31:00, Stop date: 06/02/11 22:31:00 nortriptyline 20 mg, 2 cap, Route: PO, Drug form: 06/03/2011 06/05/2011 Discontinued CAP, Daily, Start date: 06/03/11 9:00:00, Duration: 30 day, Stop date: 07/02/11 9:00:00 Benicar 40 mg, 2 tab, Route: PO, Drug form: 06/03/2011 06/05/2011 Discontinued TAB, Daily, Start date: 06/03/11 9:00:00, Duration: 30 day, Stop date: 07/02/11 9:00:00 omeprazole 40 mg, Route: PO, Drug form: [facility], 06/03/2011 06/03/2011 Deleted Daily, Start date: 06/03/11 9:00:00, Duration: 30 day, Stop date: 07/02/11 9:00:00 Effient 10 mg, 1 tab, Route: PO, Drug form: 06/04/2011 06/05/2011 Discontinued TAB, Q-M-W-F, Start date: 06/04/11 9:00:00, Duration: 30 day, Stop date: 07/02/11 9:00:00 simvastatin 20 mg, 1 tab, Route: PO, Drug form: 06/03/2011 06/05/2011 Discontinued TAB, Bedtime, Start date: 06/03/11 21:00:00, Duration: 30 day, Stop date: 07/02/11 21:00:00 verapamil 120 mg, 1 tab, Route: PO, Drug 06/03/2011 06/05/2011 Discontinued form: ERTAB, Q12H, Start date: 06/03/11 9:00:00, Duration: 30 day, Stop date: 07/02/11 21:00:00 Ambien 10 mg, 1 tab, Route: PO, Drug form: 06/03/2011 06/05/2011 Discontinued TAB, QPM, PRN as needed for sleep, Start date: 06/03/11 7:24:00, Duration: 30 day, Stop date: 07/03/11 7:23:00 Stadol 2 spray, NASAL, Q8H, PRN, as needed 06/02/2011 Ordered for pain, Substitution Allowed hyoscyamine 0.125 mg 0.125 mg, 1 tab, PO, Q6H, PRN, as 06/02/2011 Ordered oral tablet, needed, Substitution Allowed disintegrating Protonix 40 mg, Route: IVP, Drug form: INJ, 06/03/2011 06/03/2011 Discontinued BID, Start date: 06/03/11 9:00:00, Duration: 30 day, Stop date: 07/02/11 17:00:00 morphine Sulfate 4 mg, Route: IVP, ONCE, Priority: 06/02/2011 06/02/2011 Completed STAT, Start date: 06/02/11 19:26:00, Stop date: 06/02/11 19:26:00 ondansetron 4 mg, Route: IVP, ONCE, Priority: 06/02/2011 06/02/2011 Completed STAT, Start date: 06/02/11 19:26:00, Stop date: 06/02/11 19:26:00 Saline Flush 0.9% 5 ml, Route: IVP, Drug Form: INJ, 06/02/2011 06/03/2011 Completed PRN, PRN Line Flush, Start date: 06/02/11 19:26:00, Duration: 24 hr, Stop date: 06/03/11 19:25:00 Phenergan 12.5 mg, 0.5 mL, Route: IVPB, Q4H, 06/03/2011 06/05/2011 Discontinued PRN Nausea & Vomiting, Start date: 06/03/11 1:36:00, Duration: 30 day, Stop date: 07/03/11 1:35:00 omeprazole 40 mg 40 mg, 1 cap, PO, Daily, 30 cap, 06/02/2011 Ordered oral delayed release Substitution Allowed capsule Dilaudid 2 mg, 1 mL, Route: IVP, Drug form: 06/03/2011 06/03/2011 Discontinued INJ, Q4H, PRN Pain, Start date: 06/03/11 1:36:00, Duration: 30 day, Stop date: 07/03/11 1:35:00 hydromorphone 1 mg, 1 mL, Route: IVP, Drug form: 06/03/2011 06/03/2011 Discontinued SOLN, Q4H, PRN Pain, Start date: 06/03/11 1:35:00, Duration: 30 day, Stop date: 07/03/11 1:34:00 Ultram 50 mg oral 50 mg, 1 tab, Route: PO, Drug form: 06/05/2011 06/05/2011 Discontinued tablet TAB, Q4H, PRN Pain, Start date: 06/05/11 10:39:00, Duration: 30 day, Stop date: 07/05/11 10:38:00 influenza virus 0.5 ml, Route: IM, Drug Form: INJ, 02/29/2008 03/01/2008 Completed vaccine, inactivated ONCALL, Start date: 02/29/08 4:55:45, Stop date: 03/30/08 4:40:45 Ultram 50 mg oral 50 mg, 1 tab, PO, Q4H, PRN, 60 tab, 06/05/2011 Ordered tablet for pain, Substitution Allowed, TAB glucagon 1 mg, Route: IM, Drug form: 06/03/2011 06/05/2011 Discontinued PDR/INJ, PRN, PRN Blood Glucose Results, Start date: 06/03/11 0:21:00, Duration: 30 day, Stop date: 07/03/11 1:20:00 Dextrose 50% Syringe 12.5 gm, 25 mL, Route: IVP, Drug 06/03/2011 06/05/2011 Discontinued Form: INJ, PRN, PRN Blood Glucose Results, Start date: 06/03/11 0:21:00, Duration: 30 day, Stop date: 07/03/11 1:20:00 Dextrose 50% Syringe 25 gm, 50 mL, Route: IVP, Drug 06/03/2011 06/05/2011 Discontinued Form: INJ, PRN, PRN Blood Glucose Results, Start date: 06/03/11 0:21:00, Duration: 30 day, Stop date: 07/03/11 1:20:00 insulin aspart 10 unit, 0.1 mL, Route: SUB-Q, Drug 06/03/2011 06/05/2011 Discontinued form: SOLN, TID-Before Meals, PRN Blood Glucose Results, Start date: 06/03/11 0:21:00, Duration: 30 day, Stop date: 07/03/11 0:20:00 insulin aspart 8 unit, 0.08 mL, Route: SUB-Q, Drug 06/03/2011 06/05/2011 Discontinued form: SOLN, TID-Before Meals, PRN Blood Glucose Results, Start date: 06/03/11 0:21:00, Duration: 30 day, Stop date: 07/03/11 0:20:00 insulin aspart 6 unit, 0.06 mL, Route: SUB-Q, Drug 06/03/2011 06/05/2011 Discontinued form: SOLN, TID-Before Meals, PRN Blood Glucose Results, Start date: 06/03/11 0:21:00, Duration: 30 day, Stop date: 07/03/11 0:20:00 insulin aspart 4 unit, 0.04 mL, Route: SUB-Q, Drug 06/03/2011 06/05/2011 Discontinued form: SOLN, TID-Before Meals, PRN Blood Glucose Results, Start date: 06/03/11 0:21:00, Duration: 30 day, Stop date: 07/03/11 0:20:00 insulin aspart 2 unit, 0.02 mL, Route: SUB-Q, Drug 06/03/2011 06/05/2011 Discontinued form: SOLN, TID-Before Meals, PRN Blood Glucose Results, Start date: 06/03/11 0:21:00, Duration: 30 day, Stop date: 07/03/11 0:20:00 Dilaudid 1 mg, 0.5 mL, Route: IV, Drug form: 06/03/2011 06/05/2011 Discontinued INJ, Q2H, PRN Pain, Start date: 06/03/11 7:36:00, Duration: 30 day, Stop date: 07/03/11 7:35:00 nortriptyline 10 mg 20 mg, 2 cap, PO, Daily, 06/02/2011 Ordered oral capsule Substitution Allowed Flagyl 500 mg oral 500 mg, 1 tab, PO, Q8H, 42 tab, 06/05/2011 06/19/2011 Ordered tablet Substitution Allowed, TAB Cipro 500 mg oral 500 mg, 1 tab, PO, Q12H, 28 tab, 06/05/2011 06/19/2011 Ordered tablet Substitution Allowed, TAB Protonix 40 mg oral 40 mg, 1 tab, PO, Before Dinner, 30 06/05/2011 07/05/2011 Ordered enteric coated tab, Substitution Allowed, ECTAB tablet Benicar 40 mg oral 40 mg, 1 tab, PO, Daily, 30 tab, 06/02/2011 Ordered tablet Substitution Allowed, TAB Royston 10/325 oral 2 tabs, PO, Q6H, PRN, 60 tab, as 06/05/2011 06/05/2011 Discontinued tablet needed for pain, Substitution Allowed, Maintenance, TAB simvastatin 20 mg, 1 tab, PO, Bedtime, 30 tab, 06/02/2011 Ordered Substitution Allowed Protonix 40 mg, 1 tab, Route: PO, Drug form: 06/03/2011 06/05/2011 Discontinued ECTAB, Before Dinner, Start date: 06/03/11 16:30:00, Duration: 30 day, Stop date: 07/02/11 16:30:00 Glumetza 1000 mg 1 tab, PO, Daily, 30 tab, 06/02/2011 Ordered oral tablet, Substitution Allowed extended release Immunizations Vaccine Date Status influenza virus vaccine, inactivated 03/01/2008 Not Done Vital Signs Most recent to oldest [Reference Range]: 1 2 3 Height 177.80 cm (06/03/2011 00:24:00) 177.80 cm (06/02/2011 17:33:00) Temperature Oral [96.4-99.1 DegF] 98.0 DegF (06/05/2011 07:49:00) 97.7 DegF (06/05/2011 05:00:00) 97.8 DegF (06/04/2011 23:00:00) Systolic Blood Pressure [90-140 mmHg] 147 mmHg *HI* (06/05/2011 07:49:00) 124 mmHg (06/05/2011 05:00:00) 119 mmHg (06/04/2011 23:00:00) Diastolic Blood Pressure [60-90 mmHg] 87 mmHg (06/05/2011 07:49:00) 79 mmHg (06/05/2011 05:00:00) 73 mmHg (06/04/2011 23:00:00) Respiratory Rate [14-20 BRMIN] 20 BRMIN (06/05/2011 07:49:00) 20 BRMIN (06/05/2011 05:00:00) 16 BRMIN (06/04/2011 23:00:00) Peripheral Pulse Rate [60-100 bpm] 86 bpm (06/05/2011 07:49:00) 69 bpm (06/05/2011 05:00:00) 74 bpm (06/04/2011 23:00:00) Weight 104.545 kg (06/03/2011 00:24:00) 100.000 kg (06/02/2011 17:33:00) Results BEDSIDE GLUCOSE TESTING Most recent to oldest [Reference Range]: 1 2 3 Gluc POC Lifscn [65-110 mg/dL] 119 mg/dL 1 *HI* (06/05/2011 06:14:00) 168 mg/dL 2 *HI* (06/04/2011 21:29:00) 139 mg/dL 3 *HI* (06/04/2011 15:33:00) Comment1 Assess patient *NA* (06/04/2011 15:33:00) Assess patient *NA* (06/04/2011 11:21:00) Notify RN/MD *NA* (06/04/2011 05:52:00) Comment2 Notify RN/MD *NA* (06/04/2011 15:33:00) Notify RN/MD *NA* (06/04/2011 11:21:00) 1Interpretive Data: Upper Reportable Limit: 200 mg/dL. 2Interpretive Data: Upper Reportable Limit: 200 mg/dL. 3Interpretive Data: Upper Reportable Limit: 200 mg/dL. URINALYSIS Most recent to oldest [Reference Range]: 1 2 3 UA Turbidity [Clear] Clear (06/02/2011 19:28:00) UA Color [Yellow] Yellow *NA* (06/02/2011 19:28:00) UA pH [5.0-8.0] 6.0 (06/02/2011 19:28:00) UA Spec Grav [<=1.030] 1.020 (06/02/2011 19:28:00) UA Glucose [Negative mg/dL] 100 mg/dL *ABN* (06/02/2011 19:28:00) UA Blood [Negative] Negative (06/02/2011 19:28:00) UA Ketones [Negative mg/dL] Negative mg/dL *NA* (06/02/2011 19:28:00) UA Protein [Negative mg/dL] Negative mg/dL (06/02/2011 19:28:00) UA Urobilinogen [0.1-1.0 EU/dL] 1.0 EU/dL (06/02/2011 19:28:00) UA Bili [Negative] Negative *NA* (06/02/2011 19:28:00) UA Leuk Est [Negative] Negative (06/02/2011 19:28:00) UA Nitrite [Negative] Negative (06/02/2011 19:28:00) UA WBC [None Seen] None Seen (06/02/2011 19:28:00) UA RBC [0-2] None Seen (06/02/2011 19:28:00) UA Bacteria [None Seen /HPF] Occasional /HPF (06/02/2011 19:28:00) UA Sq Epi [Few /LPF] Occasional /LPF (06/02/2011 19:28:00) Micro? Performed (06/02/2011 19:28:00) CHEMISTRY Most recent to oldest [Reference Range]: 1 2 3 Sodium Lvl [135-145 mEq/L] 139 mEq/L (06/05/2011 04:58:00) 138 mEq/L (06/04/2011 04:11:00) 140 mEq/L (06/03/2011 05:45:00) Potassium Lvl [3.5-5.1 mEq/L] 4.9 mEq/L (06/05/2011 04:58:00) 3.9 mEq/L (06/04/2011 04:11:00) 4.4 mEq/L (06/03/2011 05:45:00) Chloride Lvl [95-109 mEq/L] 100 mEq/L (06/05/2011 04:58:00) 100 mEq/L (06/04/2011 04:11:00) 101 mEq/L (06/03/2011 05:45:00) CO2 [24-32 mEq/L] 30 mEq/L (06/05/2011 04:58:00) 29 mEq/L (06/04/2011 04:11:00) 30 mEq/L (06/03/2011 05:45:00) AGAP [10.0-20.0 mEq/L] 13.9 mEq/L (06/05/2011 04:58:00) 12.9 mEq/L (06/04/2011 04:11:00) 13.4 mEq/L (06/03/2011 05:45:00) Creatinine Lvl [0.5-1.4 mg/dL] 1.3 mg/dL (06/05/2011 04:58:00) 1.2 mg/dL (06/04/2011 04:11:00) 1.2 mg/dL (06/03/2011 05:45:00) BUN [7-22 mg/dL] 7 mg/dL (06/05/2011 04:58:00) 8 mg/dL (06/04/2011 04:11:00) 9 mg/dL (06/03/2011 05:45:00) B/C Ratio [6-25] 5 *LOW* (06/05/2011 04:58:00) 7 (06/04/2011 04:11:00) 8 (06/03/2011 05:45:00) Glucose Lvl 122 mg/dL 4 *NA* (06/05/2011 04:58:00) 144 mg/dL 5 *NA* (06/04/2011 04:11:00) 69 mg/dL 6 *NA* (06/03/2011 05:45:00) Total Protein [6.4-8.4 g/dL] 6.6 g/dL (06/05/2011 04:58:00) 6.8 g/dL (06/04/2011 04:11:00) 6.8 g/dL (06/03/2011 05:45:00) Albumin Lvl [3.5-5.0 g/dL] 3.7 g/dL (06/05/2011 04:58:00) 3.5 g/dL (06/04/2011 04:11:00) 3.8 g/dL (06/03/2011 05:45:00) Globulin [2.0-4.0 g/dL] 2.9 g/dL (06/05/2011 04:58:00) 3.3 g/dL (06/04/2011 04:11:00) 3.0 g/dL (06/03/2011 05:45:00) A/G Ratio [0.7-1.6] 1.3 (06/05/2011 04:58:00) 1.1 (06/04/2011 04:11:00) 1.3 (06/03/2011 05:45:00) Calcium Lvl [8.5-10.5 mg/dL] 8.7 mg/dL (06/05/2011 04:58:00) 8.9 mg/dL (06/04/2011 04:11:00) 8.8 mg/dL (06/03/2011 05:45:00) ALT [0-65 U/L] 29 U/L (06/05/2011 04:58:00) 28 U/L (06/04/2011 04:11:00) 34 U/L (06/03/2011 05:45:00) AST [0-37 U/L] 18 U/L (06/05/2011 04:58:00) 15 U/L (06/04/2011 04:11:00) 20 U/L (06/03/2011 05:45:00) Alk Phos [39-136 U/L] 65 U/L (06/05/2011 04:58:00) 64 U/L (06/04/2011 04:11:00) 70 U/L (06/03/2011 05:45:00) Bili Total [0.2-1.3 mg/dL] 0.7 mg/dL (06/05/2011 04:58:00) 0.9 mg/dL (06/04/2011 04:11:00) 0.8 mg/dL (06/03/2011 05:45:00) Amylase Lvl [25-115 U/L] 34 U/L (06/05/2011 04:58:00) 38 U/L (06/04/2011 04:11:00) 43 U/L (06/03/2011 05:45:00) Lipase Lvl [73-393 U/L] 53 U/L *LOW* (06/05/2011 04:58:00) 50 U/L *LOW* (06/04/2011 04:11:00) 57 U/L *LOW* (06/03/2011 05:45:00) Iron [45-160 ug/dl] 60 ug/dl (06/04/2011 04:11:00) % [place] [12-57 %] 17 % (06/04/2011 04:11:00) UIBC [110-370 ug/dl] 292 ug/dl (06/04/2011 04:11:00) Vitamin B12 Lvl [254-1320 pg/mL] 890 pg/mL (06/04/2011 04:11:00) TIBC [228-428 ug/dl] 352 ug/dl (06/04/2011 04:11:00) 4Interpretive Data: Reference Ranges : 0 - 7 days : 41 - 90 mg/dL7 days - 150 yrs : 70 - 99 mg/dL (fasting), based on the clinical recommendations of the [place] [employer]. 5Interpretive Data: Reference Ranges : 0 - 7 days : 41 - 90 mg/dL7 days - 150 yrs : 70 - 99 mg/dL (fasting), based on the clinical recommendations of the [place] [employer]. 6Interpretive Data: Reference Ranges : 0 - 7 days : 41 - 90 mg/dL7 days - 150 yrs : 70 - 99 mg/dL (fasting), based on the clinical recommendations of the [place] [employer]. HEMATOLOGY Most recent to oldest [Reference Range]: 1 2 3 WBC [3.7-10.4 K/CMM] 7.2 K/CMM (06/05/2011 04:58:00) 8.2 K/CMM (06/04/2011 04:11:00) 11.9 K/CMM *HI* (06/03/2011 05:45:00) RBC [4.70-6.10 M/CMM] 4.64 M/CMM *LOW* (06/05/2011 04:58:00) 4.50 M/CMM *LOW* (06/04/2011 04:11:00) 4.91 M/CMM (06/03/2011 05:45:00) Hgb [14.0-18.0 g/dL] 14.4 g/dL (06/05/2011 04:58:00) 13.8 g/dL *LOW* (06/04/2011 04:11:00) 15.2 g/dL (06/03/2011 05:45:00) Hct [42.0-54.0 %] 41.2 % *LOW* (06/05/2011 04:58:00) 39.4 % *LOW* (06/04/2011 04:11:00) 43.2 % (06/03/2011 05:45:00) MCV [80.0-94.0 fL] 88.9 fL (06/05/2011 04:58:00) 87.5 fL (06/04/2011 04:11:00) 87.9 fL (06/03/2011 05:45:00) MCH [27.0-31.0 pg] 31.0 pg (06/05/2011 04:58:00) 30.6 pg (06/04/2011 04:11:00) 31.0 pg (06/03/2011 05:45:00) MCHC [32.0-36.0 g/dL] 34.9 g/dL (06/05/2011 04:58:00) 35.0 g/dL (06/04/2011 04:11:00) 35.2 g/dL (06/03/2011 05:45:00) RDW [11.5-14.5 %] 12.7 % (06/05/2011 04:58:00) 12.7 % (06/04/2011 04:11:00) 13.0 % (06/03/2011 05:45:00) Platelet [133-450 K/CMM] 199 K/CMM (06/05/2011 04:58:00) 195 K/CMM (06/04/2011 04:11:00) 200 K/CMM (06/03/2011 05:45:00) MPV [7.4-10.4 fL] 8.0 fL (06/05/2011 04:58:00) 7.7 fL (06/04/2011 04:11:00) 8.0 fL (06/03/2011 05:45:00) Segs [45.0-75.0 %] 56.3 % (06/05/2011 04:58:00) 61.1 % (06/04/2011 04:11:00) 66.0 % (06/03/2011 05:45:00) Bands [0.0-11.0 %] 3.0 % (06/02/2011 19:30:00) Lymphocytes [20.0-40.0 %] 23.8 % (06/05/2011 04:58:00) 21.7 % (06/04/2011 04:11:00) 19.7 % *LOW* (06/03/2011 05:45:00) Atypical Lymphs [<=0.0 %] 6.0 % *HI* (06/02/2011 19:30:00) Monocytes [2.0-12.0 %] 12.6 % *HI* (06/05/2011 04:58:00) 12.0 % (06/04/2011 04:11:00) 10.4 % (06/03/2011 05:45:00) Eosinophils [0.0-4.0 %] 6.7 % *HI* (06/05/2011 04:58:00) 4.5 % *HI* (06/04/2011 04:11:00) 3.4 % (06/03/2011 05:45:00) Basophils [0.0-1.0 %] 0.6 % (06/05/2011 04:58:00) 0.7 % (06/04/2011 04:11:00) 0.5 % (06/03/2011 05:45:00) Segs-Bands # [1.5-8.1 K/CMM] 4.1 K/CMM (06/05/2011 04:58:00) 5.0 K/CMM (06/04/2011 04:11:00) 7.8 K/CMM (06/03/2011 05:45:00) Lymphocytes # [1.0-5.5 K/CMM] 1.7 K/CMM (06/05/2011 04:58:00) 1.8 K/CMM (06/04/2011 04:11:00) 2.3 K/CMM (06/03/2011 05:45:00) Monocytes # [0.0-0.8 K/CMM] 0.9 K/CMM *HI* (06/05/2011 04:58:00) 1.0 K/CMM *HI* (06/04/2011 04:11:00) 1.2 K/CMM *HI* (06/03/2011 05:45:00) Eosinophils # [0.0-0.5 K/CMM] 0.5 K/CMM (06/05/2011 04:58:00) 0.4 K/CMM (06/04/2011 04:11:00) 0.4 K/CMM (06/03/2011 05:45:00) Basophils # [0.0-0.2 K/CMM] 0.0 K/CMM (06/05/2011 04:58:00) 0.1 K/CMM (06/04/2011 04:11:00) 0.1 K/CMM (06/03/2011 05:45:00) RBC Morph See Note (06/02/2011 19:30:00) Stomatocyte [None Seen] Slight *ABN* (06/02/2011 19:30:00) Plt Morph Clumped (06/02/2011 19:30:00)
--- OUTSIDE RECORDS SUMMARY | 2018-07-05 17:41 | XMS REPORT | Summary of Care ---
Author Author [facility] Organization [facility] Address Unknown Phone Unavailable Encounter IRIS Hastings(KATELYN) [id number] Date(s): 06/21/15 - 06/21/15 [facility] [address] [employer] provided by [facility] [place] [address]- Discharge Disposition: Home Attending Physician: Jacquelin Maldonado MD Referring Physician: Jacquelin Maldonado MD Vital Signs Most recent to 1 oldest [Reference Range]: Height 175.26 cm (06/21/15 8:00 AM) Weight 104.545 kg (06/21/15 8:00 AM) Body Mass Index 34.04 m2 (06/21/15 8:00 AM) Problem List Condition Effective Dates Status Health Status Informant Acid Active reflux(Confirmed) Anxiety(Confirmed) Active Arthritis(Confirmed) Active Bronchitis(Confirmed Active ) CAD (coronary artery Resolved disease)(Confirmed) Cataract(Confirmed) Resolved COPD(Confirmed) Resolved COPD - Chronic Active obstructive [...] Alerts Substance Reaction Severity Status codeine1 Active Darvocet A500 Active Darvon Active HYDROcodone Active morphine2 Active Vicodin Rash, NOS Active 1Data migrated from [employer] on 06/20/15. Originally documented as CODEINE. itchy and nausea 2Data migrated from [employer] on 08/15/14. Originally documented as SIOBHAN. itchy and nausea Medications No data available for this section Results CHEM PANEL Most recent to 1 oldest [Reference Range]: eGFR 51 mL/min/1.73m2 1 *NA* (06/21/15 8:34 AM) POC Creatinine 1.4 mg/dL [0.5-1.4 mg/dL] (06/21/15 8:34 AM) 1Result Comment: The eGFR is calculated [...] be mul tiplied by the estimated BMI. Immunizations No data available for this section Procedures Procedure Date Related Diagnosis Body Site Cataract extraction and insertion of 02/22/10 intraocular lens Knee reoperations 08/30/09 Knee joint operation 06/21/09 Bursa operation1 Cardiac catheterization Cholecystectomy Colon operation Foot joint operations Nasal operation Rotator cuff repair2 Tendon operation 1left knee 2right Social History Social History Type Response Smoking Status Former smoker; Exposure to Tobacco Smoke None; Cigarette Smoking Last 365 Days No; Reg Smoking Cessation Counseling No Assessment and Plan No data available for this section
--- OUTSIDE RECORDS SUMMARY | 2018-07-05 17:41 | XMS REPORT | Summary of Care ---
Author Author [facility] Organization [facility] Address Unknown Phone Unavailable Encounter IRIS Hastings(KATELYN) [id number] Date(s): 06/26/15 - 06/27/15 [facility] [address] [employer] provided by [facility] [place] [address]- Discharge Disposition: Home Attending Physician: Jacquelin Maldonado MD Admitting Physician: Jacquelin Maldonado MD Referring Physician: Jacquelin Maldonado MD Vital Signs 1 2 3 Most recent to oldest [Reference Range]: 177.8 cm (06/26/15 5:46 AM) Height 97.6 DegF (06/27/15 7:47 AM) 97.8 DegF (06/26/15 7:56 PM) 97.2 DegF (06/26/15 5:45 AM) Temperature Oral [96.4-99.1 DegF] 121/72 mmHg (06/27/15 7:47 AM) 144/77 mmHg *HI* (06/27/15 4:51 AM) 135/71 mmHg (06/26/15 11:56 PM) Blood Pressure [90-140/60-90 mmHg] 18 BRMIN (06/26/15 5:00 PM) 18 BRMIN (06/26/15 4:00 PM) 16 BRMIN (06/26/15 3:45 PM) Respiratory Rate [14-20 BRMIN] 107.273 kg (06/26/15 5:46 AM) Weight 33.93 m2 (06/26/15 5:46 AM) Body Mass Index Problem List Condition Effective Dates Status Health [...] documented as SIOBHAN. itchy and nausea Medications aspirin 81 mg tablet, enteric coated 81 mg, 1 tab, Route: PO, Drug form: ECTAB, Daily, Dosing Weight 107.273, kg, Sta rt date: 06/27/15 9:00:00, Duration: 30 day, Stop date: 07/26/15 9:00:00 Notes: Do not crush or chew.(Same As: Ecotrin) Start Date: 06/27/15 Stop Date: 06/27/15 Status: Discontinued atenolol 25 mg oral tablet 25 mg, 1 tab, Route: PO, Drug form: TAB, Daily, Dosing Weight 107.273, kg, Start date: 06/27/15 9:00:00, Duration: 30 day, Stop date: 07/26/15 9:00:00 Notes: (Same As:Tenormin) Start Date: 06/27/15 Stop Date: 06/27/15 Status: Discontinued atorvastatin 40 mg, 1 tab, Route: PO, Drug form: TAB, Bedtime, Dosing Weight 107.273, kg, Sta rt date: 06/26/15 21:00:00, Duration: 30 day, Stop date: 07/25/15 21:00:00 Notes: (Same as: Lipitor) Start Date: 06/26/15 Stop Date: 06/27/15 Status: Discontinued Benicar 20 mg, 1 tab, Route: PO, Drug form: TAB, Daily, Start date: 06/27/15 9:00:00, Du ration: 30 day, Stop date: 07/26/15 9:00:00 Start Date: 06/27/15 Stop Date: 06/27/15 Status: Discontinued Benicar 20 mg, 1 tab, Route: PO, Drug form: TAB, Daily, Start date: 06/27/15 9:00:00, Du ration: 30 day, Stop date: 07/26/15 9:00:00 Start Date: 06/27/15 Stop Date: 06/27/15 Status: Discontinued Carafate 1 gm, 10 mL, Route: PO, Drug form: SUSP, BID, Dosing Weight 107.273, kg, Start d ate: 06/26/15 17:00:00, Duration: 30 day, Stop date: 07/26/15 9:00:00 Notes: Enteral feeds may interfere with the absorption of this medication. Nilesh e well. Take 1 hr before or 2 hrs after antacids, dairy pdt, minerals & meals. (Same As: Carafate) Start Date: 06/26/15 Stop Date: 06/27/15 Status: Discontinued Dilaudid 0.5 mg, 0.25 mL, Route: IVP, Drug form: INJ, Q2H, Dosing Weight 107.273, kg, PRN Pain Score 7-10, Start date: 06/26/15 11:30:00, Duration: 30 day, Stop date: 11:29:00 Notes: Same as: Dilaudid Start Date: 06/26/15 Stop Date: 06/27/15 Status: Discontinued Eliquis 2.5 mg, 1 tab, Route: PO, Drug form: TAB, BID, Dosing Weight 107.273, kg, Start date: 06/26/15 17:00:00, Duration: 30 day, Stop date: 07/26/15 9:00:00 Notes: Same as: Eliquis Start Date: 06/26/15 Stop Date: 06/27/15 Status: Discontinued Eliquis 2.5 mg oral tablet 2.5 mg=1 tab, PO, BID, 0 Refill(s) Start Date: 06/26/15 Status: Ordered Flonase 0.05 mg/inh nasal spray 2 spray, NASAL, BID, # 16 gm, 0 Refill(s) Start Date: 06/26/15 Status: Ordered Flonase 0.05 mg/inh nasal spray 2 spray, Route: NASAL, Drug Form: SPRY, Dosing Weight 107.273, kg, BID, Start da te: 06/26/15 17:00:00, Duration: 30 day, Stop date: 07/26/15 9:00:00 Notes: (Same as: Flonase) Start Date: 06/26/15 Stop Date: 06/27/15 Status: Discontinued glipiZIDE 10 mg oral tablet 10 mg, 1 tab, Route: PO, Drug form: TAB, BID, Dosing Weight 107.273, kg, Start d ate: 06/26/15 17:00:00, Duration: 30 day, Stop date: 07/26/15 9:00:00 Notes: (Same as: Glucotrol) 30 min before meals. Start Date: 06/26/15 Stop Date: 06/27/15 Status: Discontinued hydrochlorothiazide-olmesartan 12.5 mg-20 mg oral tablet 1 tab, Route: PO, Drug Form: TAB, Dosing Weight 107.273, kg, Daily, Start date: 06/27/15 9:00:00, Duration: 30 day, Stop date: 07/26/15 9:00:00 Start Date: 06/27/15 Stop Date: 06/26/15 Status: Discontinued hydrochlorothiazide-olmesartan 12.5 mg-20 mg oral tablet 1 tab, Route: PO, Drug Form: TAB, Dosing Weight 107.273, kg, Daily, Start date: 06/27/15 9:00:00, Duration: 30 day, Stop date: 07/26/15 9:00:00 Start Date: 06/27/15 Stop Date: 06/26/15 Status: Discontinued losartan 100 mg, 1 tab, Route: PO, Drug form: TAB, Daily, Dosing Weight 107.273, kg, Star t date: 06/27/15 9:00:00, Duration: 30 day, Stop date: 07/26/15 9:00:00 Notes: (Same as: Cotracey) Start Date: 06/27/15 Stop Date: 06/27/15 Status: Discontinued losartan 100 mg oral tablet 100 mg=1 tab, PO, Daily, # 30 tab, 0 Refill(s) Start Date: 06/26/15 Status: Ordered magnesium oxide 400 mg, Route: PO, Drug form: TAB, ONCE, Dosing Weight 107.273, kg, Start date: 06/27/15 5:30:00, Stop date: 06/27/15 5:30:00 Start Date: 06/27/15 Stop Date: 06/27/15 Status: Completed metFORMIN 1000 mg oral tablet 1,000 mg, 1 tab, Route: PO, Drug form: TAB, BID, Dosing Weight 107.273, kg, Star t date: 06/26/15 17:00:00, Duration: 30 day, Stop date: 07/26/15 9:00:00 Notes: Same as Glucophage Start Date: 06/26/15 Stop Date: 06/27/15 Status: Discontinued Microzide 12.5 mg, 1 cap, Route: PO, Drug form: CAP, Daily, Start date: 06/27/15 9:00:00, Duration: 30 day, Stop date: 07/26/15 9:00:00 Notes: (Same as: Microzide) With food. Start Date: 06/27/15 Stop Date: 06/27/15 Status: Discontinued Microzide 12.5 mg, 1 cap, Route: PO, Drug form: CAP, Daily, Start date: 06/27/15 9:00:00, Duration: 30 day, Stop date: 07/26/15 9:00:00 Notes: (Same as: Microzide) With food. Start Date: 06/27/15 Stop Date: 06/27/15 Status: Discontinued montelukast 10 mg, 1 tab, Route: PO, Drug form: TAB, Bedtime, Dosing Weight 107.273, kg, Sta rt date: 06/26/15 21:00:00, Duration: 30 day, Stop date: 07/25/15 21:00:00 Notes: (Same as:Singulair) Start Date: 06/26/15 Stop Date: 06/27/15 Status: Discontinued montelukast 10 mg oral tablet 10 mg=1 tab, PO, Bedtime, # 30 tab, 0 Refill(s) Start Date: 06/26/15 Status: Ordered normal saline 0.9% IV 1,000 mL 1,000 mL, Rate: 100 ml/hr, Infuse over: 10 hr, Route: IV, Dosing Weight 107.273 kg, Total Volume: 1,000, Start date: 06/26/15 5:48:00, Duration: 30 day, Stop da te: 07/26/15 5:47:00 Start Date: 06/26/15 Stop Date: 06/26/15 Status: Discontinued omeprazole 40 mg, Route: PO, Drug form: DRC, Daily, Dosing Weight 107.273, kg, Start date: 06/27/15 9:00:00, Duration: 30 day, Stop date: 07/26/15 9:00:00 Start Date: 06/27/15 Stop Date: 06/26/15 Status: Discontinued pantoprazole 40 mg, 1 tab, Route: PO, Drug form: ECTAB, Before Dinner, Dosing Weight 107.273, kg, Start date: 06/26/15 16:30:00, Duration: 30 day, Stop date: 07/25/15 16:30: 00 Notes: Tablet should not be chewed or crushed.(Same as: Protonix) Start Date: 06/26/15 Stop Date: 06/27/15 Status: Discontinued pantoprazole 40 mg oral enteric coated tablet 40 mg=1 tab, PO, Before Dinner, # 30 tab, 0 Refill(s) Start Date: 06/26/15 Status: Suspended Pentasa 500 mg, 1 cap, Route: PO, Drug form: ERCAP, BID, Dosing Weight 107.273, kg, Star t date: 06/26/15 17:00:00, Duration: 30 day, Stop date: 07/26/15 9:00:00 Start Date: 06/26/15 Stop Date: 06/27/15 Status: Discontinued Pentasa 500 mg oral capsule, extended release 500 mg=1 cap, PO, BID, # 120 cap, 0 Refill(s) Start Date: 06/26/15 Status: Ordered Ranexa 500 mg oral tablet, extended release 500 mg, 1 tab, Route: PO, Drug form: TAB, BID, Dosing Weight 107.273, kg, Start date: 06/26/15 17:00:00, Duration: 30 day, Stop date: 07/26/15 9:00:00 Notes: Same as Ranexa"Do Not Crush" Start Date: 06/26/15 Stop Date: 06/27/15 Status: Discontinued Ranexa 500 mg oral tablet, extended release 500 mg=1 tab, PO, BID, # 60 tab, 0 Refill(s) Start Date: 06/26/15 Status: Ordered sucralfate 1 g/10 mL oral suspension 1 gm=10 mL, PO, BID, # 200 mL, 0 Refill(s) Start Date: 06/26/15 Status: Suspended verapamil 240 mg, 1 tab, Route: PO, Drug form: ERTAB, Q12H, Dosing Weight 107.273, kg, Sta rt date: 06/26/15 21:00:00, Duration: 30 day, Stop date: 07/26/15 9:00:00 Notes: Do not crush or chew.; "Avoid grapefruit and grapefruit juice"(Same As: C carole SR, Isoptin SR) Start Date: 06/26/15 Stop Date: 06/27/15 Status: Discontinued Xanax 0.25 mg oral tablet 0.25 mg, 1 tab, Route: PO, Drug form: TAB, Daily, Dosing Weight 107.273, kg, Sta rt date: 06/27/15 9:00:00, Duration: 30 day, Stop date: 07/26/15 9:00:00 Notes: With food or milk(Same as: Xanax) Start Date: 06/27/15 Stop Date: 06/27/15 Status: Discontinued zolpidem 10 mg, 2 tab, Route: PO, Drug form: TAB, Bedtime, Dosing Weight 107.273, kg, PRN Sleep, Start date: 06/26/15 11:01:00, Duration: 30 day, Stop date: 07/26/15 11: 00:00 Notes: (Same As: Ovidio) Start Date: 06/26/15 Stop Date: 06/27/15 Status: Discontinued Results BLOOD BANK RESULTS Most recent to 1 2 oldest [Reference Range]: ABO/Rh O NEG *Unknown* (06/26/15 5:49 AM) Antibody Scrn Negative (06/26/15 5:49 AM) ELECTROLYTES Most recent to 1 2 oldest [Reference Range]: Sodium Lvl [135-145 139 mEq/L 139 mEq/L mEq/L] (06/27/15 4:38 AM) (06/26/15 5:49 AM) Potassium Lvl 3.9 mEq/L 1 3.8 mEq/L [3.5-5.1 mEq/L] (06/27/15 4:38 AM) (06/26/15 5:49 AM) Chloride Lvl [95-109 104 mEq/L 104 mEq/L mEq/L] (06/27/15 4:38 AM) (06/26/15 5:49 AM) CO2 [24-32 mEq/L] 28 mEq/L 26 mEq/L (06/27/15 4:38 AM) (06/26/15 5:49 AM) AGAP [10.0-20.0 10.9 mEq/L 12.8 mEq/L mEq/L] (06/27/15 4:38 AM) (06/26/15 5:49 AM) 1Result Comment: Specimen Slightly Hemolyzed. CHEM PANEL Most recent to 1 2 oldest [Reference Range]: Creatinine Lvl 1.14 mg/dL 1.19 mg/dL [0.50-1.40 mg/dL] (06/27/15 4:38 AM) (06/26/15 5:49 AM) eGFR 65 mL/min/1.73m2 1 62 mL/min/1.73m2 2 *NA* *NA* (06/27/15 4:38 AM) (06/26/15 5:49 AM) BUN [7-22 mg/dL] 12 mg/dL 18 mg/dL (06/27/15 4:38 AM) (06/26/15 5:49 AM) Glucose Lvl [70-99 117 mg/dL 127 mg/dL mg/dL] *HI* *HI* (06/27/15 4:38 AM) (06/26/15 5:49 AM) Calcium Lvl 7.8 mg/dL 8.5 mg/dL [8.5-10.5 mg/dL] *LOW* (06/26/15 5:49 AM) (06/27/15 4:38 AM) Magnesium Lvl 1.7 mg/dL [1.8-2.4 mg/dL] *LOW* (06/27/15 4:38 AM) 1Result Comment: The eGFR is calculated [...] be mul tiplied by the estimated BMI. 2Result Comment: The eGFR is calculated using [...] be mul tiplied by the estimated BMI. HEMATOLOGY Most recent to 1 2 oldest [Reference Range]: WBC [3.7-10.4 K/CMM] 6.9 K/CMM (06/26/15 5:49 AM) RBC [4.70-6.10 4.60 M/CMM M/CMM] *LOW* (06/26/15 5:49 AM) Hgb [14.0-18.0 g/dL] 12.2 g/dL 12.2 g/dL *LOW* *LOW* (06/27/15 4:39 AM) (06/26/15 5:49 AM) Hct [42.0-54.0 %] 37.0 % 38.3 % *LOW* *LOW* (06/27/15 4:39 AM) (06/26/15 5:49 AM) MCV [80.0-94.0 fL] 83.2 fL (06/26/15 5:49 AM) MCH [27.0-31.0 pg] 26.6 pg *LOW* (06/26/15 5:49 AM) MCHC [32.0-36.0 31.9 g/dL g/dL] *LOW* (06/26/15 5:49 AM) RDW [11.5-14.5 %] 13.9 % (06/26/15 5:49 AM) Platelet [133-450 171 K/CMM K/CMM] (06/26/15 5:49 AM) MPV [7.4-10.4 fL] 8.4 fL (06/26/15 5:49 AM) Segs [45.0-75.0 %] 49.8 % (06/26/15 5:49 AM) Lymphocytes 32.7 % [20.0-40.0 %] (06/26/15 5:49 AM) Monocytes [2.0-12.0 9.9 % %] (06/26/15 5:49 AM) Eosinophils [0.0-4.0 6.6 % %] *HI* (06/26/15 5:49 AM) Basophils [0.0-1.0 1.0 % %] (06/26/15 5:49 AM) Segs-Bands # 3.4 K/CMM [1.5-8.1 K/CMM] (06/26/15 5:49 AM) Lymphocytes # 2.2 K/CMM [1.0-5.5 K/CMM] (06/26/15 5:49 AM) Monocytes # [0.0-0.8 0.7 K/CMM K/CMM] (06/26/15 5:49 AM) Eosinophils # 0.5 K/CMM [0.0-0.5 K/CMM] (06/26/15 5:49 AM) Basophils # [0.0-0.2 0.1 K/CMM K/CMM] (06/26/15 5:49 AM) PT [12.0-14.7 16.6 seconds seconds] *HI* (06/26/15 5:49 AM) INR [0.85-1.17] 1.31 *HI* (06/26/15 5:49 AM) POC Activated 164 seconds Clotting Time *NA* (06/26/15 12:24 PM) PTT [22.9-35.8 38.4 seconds seconds] *HI* (06/26/15 5:49 AM) Immunizations No data available for this section [...]
--- OUTSIDE RECORDS SUMMARY | 2018-07-05 17:41 | XMS REPORT | Summary of Care ---
Author Organization Unknown Address Unknown Phone Unavailable Encounter [facility] Venkata(KATELYN) [id number] Date(s): 11/08/13 - 11/08/13 [facility] [address] Discharge Disposition: Home Physician Attending: Arsalan Hutchinson MD Physician_Referring: Arsalan Hutchinson MD Reason for Visit V12.72 Vital Signs 1 2 3 Most recent to oldest [Reference Range]: 180.34 cm (11/03/13 9:57 AM) Height 97.8 DegF (11/03/13 10:10 AM) Temperature Oral [96.4-99.1 DegF] 136 mmHg (11/08/13 11:29 AM) 134 mmHg (11/08/13 11:10 AM) 123 mmHg (11/08/13 10:55 AM) Systolic Blood Pressure [90-140 mmHg] 79 mmHg (11/08/13 11:29 AM) 78 mmHg (11/08/13 11:10 AM) 66 mmHg (11/08/13 10:55 AM) Diastolic Blood Pressure [60-90 mmHg] 18 BRMIN (11/08/13 11:29 AM) 18 BRMIN (11/08/13 11:10 AM) 16 BRMIN (11/08/13 10:55 AM) Respiratory Rate [14-20 BRMIN] 54 bpm *LOW* (11/08/13 11:29 AM) 53 bpm *LOW* (11/08/13 11:10 AM) 61 bpm (11/08/13 10:55 AM) Peripheral Pulse Rate [60-100 bpm] 104.545 kg (11/03/13 9:57 AM) Weight 32.15 m2 (11/03/13 9:57 AM) Body Mass Index Problem List Condition [...] HYDROcodone Active Vicodin Rash, NOS Active Medications metFORMIN 1000 mg oral tablet 1,000 mg=1 tab, PO, BID, # 30 tab, 0 Refill(s) Start Date: 11/08/13 Status: Ordered Sodium Chloride 0.9% IV 1000 mL 1,000 mL, Rate: 25 ml/hr, Infuse over: 40 hr, Route: IV, Dosing Weight 104.545 k g, Total Volume: 1,000, Start date: 11/08/13 8:11:00, Duration: 30 day, Stop kevin e: 12/08/13 8:10:00 Start Date: 11/08/13 Stop Date: 11/08/13 Status: Discontinued Zantac 150 oral tablet 150 mg=1 tab, PO, Bedtime, # 60 tab, 0 Refill(s) Start Date: 11/03/13 Status: Ordered zolpidem 10 mg oral tablet 10 mg=1 tab, PO, Bedtime, for sleep, 0 Refill(s) Start Date: 11/03/13 Status: Ordered Results ELECTROLYTES Most recent to 1 oldest [Reference Range]: Sodium Lvl [135-145 138 mEq/L mEq/L] (11/03/13 10:35 AM) Potassium Lvl 3.9 mEq/L [3.5-5.1 mEq/L] (11/03/13 10:35 AM) Chloride Lvl [95-109 102 mEq/L mEq/L] (11/03/13 10:35 AM) CO2 [24-32 mEq/L] 26 mEq/L (11/03/13 10:35 AM) AGAP [10.0-20.0 13.9 mEq/L mEq/L] (11/03/13 10:35 AM) CHEM PANEL Most recent to 1 oldest [Reference Range]: Creatinine Lvl 1.3 mg/dL [0.5-1.4 mg/dL] (11/03/13 10:35 AM) eGFR 56 mL/min/1.73m2 1 *NA* (11/03/13 10:35 AM) BUN [7-22 mg/dL] 16 mg/dL (11/03/13 10:35 AM) Glucose Lvl [70-99 98 mg/dL 2 mg/dL] (11/03/13 10:35 AM) Calcium Lvl 9.2 mg/dL [8.5-10.5 mg/dL] (11/03/13 10:35 AM) 1Result Comment: The eGFR is calculated [...] values reflect the clinical guidelines of the [place] [employer]. HEMATOLOGY Most recent to 1 oldest [Reference Range]: Hgb [14.0-18.0 g/dL] 14.5 g/dL (11/03/13 10:35 AM) Hct [42.0-54.0 %] 43.1 % (11/03/13 10:35 AM) MOLECULAR DIAGNOSTIC Most recent to 1 oldest [Reference Range]: C difficile DNA Negative 3 [Negative] (11/08/13 12:32 PM) 3Interpretive Data: [email or web address] Clostridium difficile assay utilizes loop-mediated isothermal DNA amplification (LAMP) technology to detect a 204 bp region of the tcdA gene within the PaLoc gene segment present in all known toxigenic C. difficile strains. The assay utilizes FDA cleared IVD reagents. Performance characteristics have be en verified by the [facility] within the [facility]. The [facility] is authorized under the Clinical Labo ratory Improvement Amendment of 1988 (CLIA-88) to perform high complexity testin g. BACTERIAL - SEROLOGY Most recent to 1 oldest [Reference Range]: Campylobacter Negative Antigen [Negative] (11/08/13 12:32 PM) PARASITOLOGY - SEROLOGY Most recent to 1 oldest [Reference Range]: Giardia Ag Negative [Negative] (11/08/13 12:32 PM) Medications Administered During Your Visit No data available for this section Immunizations No data available for this section Procedures Procedure Type Body Site Date of Procedure Related Diagnosis Cataract extraction and 02/22/10 12:00 AM insertion of intraocular lens Knee joint operation 06/21/09 12:00 AM Knee reoperations 08/30/09 12:00 AM Social History Social History Type Response Smoking Status Former smoker, Exposure to Tobacco Smoke None, Cigarette Smoking Last 365 Days No, Reg Smoking Cessation Counseling No
--- OUTSIDE RECORDS SUMMARY | 2018-07-05 17:41 | XMS REPORT | Summary of Care ---
Author Organization Unknown Address Unknown Phone Unavailable Encounter HQ Venkata(KATELYN) [id number] Date(s): 08/01/13 - 08/06/13 [facility] [address] [address] - [facility] Discharge Disposition: Home Physician Attending: Mckenzie Rutledge Physician Admitting: Mckenzie Rutledge Reason for Visit COPD EXACERBATION Vital Signs 1 2 3 Most recent to oldest [Reference Range]: 177.8 cm (08/01/13 4:52 PM) Height 97.4 DegF (08/06/13 11:09 AM) 97.4 DegF (08/06/13 7:35 AM) 97.6 DegF (08/06/13 4:11 AM) Temperature Oral [96.4-99.1 DegF] 101 mmHg (08/06/13 11:09 AM) 129 mmHg (08/06/13 7:35 AM) 116 mmHg (08/06/13 4:11 AM) Systolic Blood Pressure [90-140 mmHg] 60 mmHg (08/06/13 11:09 AM) 78 mmHg (08/06/13 7:35 AM) 69 mmHg (08/06/13 4:11 AM) Diastolic Blood Pressure [60-90 mmHg] 17 BRMIN (08/06/13 11:09 AM) 16 BRMIN (08/06/13 8:11 AM) 18 BRMIN (08/06/13 7:35 AM) Respiratory Rate [14-20 BRMIN] 72 bpm (08/06/13 11:09 AM) 58 bpm *LOW* (08/06/13 7:35 AM) 60 bpm (08/06/13 4:11 AM) Peripheral Pulse Rate [60-100 bpm] 107.273 kg (08/01/13 4:52 PM) Weight 33.93 m2 (08/01/13 4:52 PM) Body Mass Index Problem List Condition Effective Dates Status Health Status Informant CAD (coronary artery Resolved disease)(Confirmed) Cataract(Confirmed) Resolved colon Resolved resection(Confirmed) COPD(Confirmed) Resolved Diverticulitis(Confi Active rmed) Diverticulitis(Confi Resolved rmed) HT - Active Hypertension(Confirm ed) Laparoscopic sigmoid Active colectomy(Confirmed) left knee Resolved surgery(Confirmed) nasal Resolved surgery(Confirmed) right foot Resolved fx(Confirmed) right rotator cuff Resolved repair(Confirmed) Sleep Resolved apnea(Confirmed) TIA(Confirmed) Resolved Allergies, Adverse Reactions, Alerts Substance Reaction Severity Status codeine Active Darvocet A500 Active Darvon Active HYDROcodone Active Vicodin Rash, NOS Active Medications albuterol 0.083% inhalation solution 2.49 mg, 3 mL, Route: NEB, Drug form: SOLN, RQ6H, Start date: 08/01/13 20:00:00, Duration: 30 day, Stop date: 08/31/13 14:00:00 Notes: SEE RT DOCUMENTATION (Same as: Chepe) Start Date: 08/01/13 Stop Date: 08/02/13 Status: Discontinued Ambien 10 mg, 1 tab, Route: PO, Drug form: TAB, Bedtime, Dosing Weight 107.273, kg, PRN Insomnia, Start date: 08/01/13 21:56:00, Duration: 30 day, Stop date: 08/31/13 21:55:00 Notes: (Same As: Ambien) Start Date: 08/01/13 Stop Date: 08/06/13 Status: Discontinued atenolol 25 mg oral tablet 25 mg=1 tab, PO, BID, 0 Refill(s) Start Date: 08/01/13 Status: Ordered atenolol 25 mg oral tablet 1 tab, Route: PO, BID, Dosing Weight 107.273, kg, Start date: 08/02/13 9:00:00, Duration: 30 day, Stop date: 08/31/13 17:00:00 Start Date: 08/02/13 Stop Date: 08/01/13 Status: Deleted atenolol 25 mg oral tablet 25 mg, 1 tab, Route: PO, Drug form: TAB, BID, Dosing Weight 107.273, kg, Start d ate: 08/01/13 23:00:00, Duration: 30 day, Stop date: 08/31/13 21:00:00 Notes: (Same As:Tenormin) Start Date: 08/01/13 Stop Date: 08/06/13 Status: Discontinued atorvastatin 40 mg, 1 tab, Route: PO, Drug form: TAB, Daily, Dosing Weight 107.273, kg, Start date: 08/02/13 9:00:00, Duration: 30 day, Stop date: 08/31/13 9:00:00 Notes: (Same as: Lipitor) Start Date: 08/02/13 Stop Date: 08/06/13 Status: Discontinued atorvastatin 40 mg oral tablet 40 mg=1 tab, PO, Daily, 0 Refill(s) Start Date: 08/01/13 Status: Ordered clopidogrel 75 mg, 1 tab, Route: PO, Drug form: TAB, Bedtime, Dosing Weight 107.273, kg, Sta rt date: 08/01/13 23:00:00, Duration: 30 day, Stop date: 08/31/13 21:00:00 Notes: (Same As: Plavix) Start Date: 08/01/13 Stop Date: 08/06/13 Status: Discontinued clopidogrel 75 mg oral tablet 75 mg=1 tab, PO, Daily, 0 Refill(s) Start Date: 08/01/13 Status: Ordered Dextrose 50% in Water IV 50 mL, Route: IVP, Start date: 08/02/13 11:09:00, Duration: 30 day, Stop date: 0 09/01/13 11:08:00, PRN Blood Glucose Results Start Date: 08/02/13 Stop Date: 08/06/13 Status: Discontinued doxycycline hyclate 100 mg oral tablet 100 mg=1 tab, PO, Q12H, # 14 tab, 0 Refill(s) Start Date: 08/06/13 Stop Date: 08/13/13 Status: Ordered glipiZIDE 10 mg, 1 tab, Route: PO, Drug form: TAB, BID-Before Meals, Dosing Weight 107.273 , kg, Start date: 08/02/13 7:30:00, Duration: 30 day, Stop date: 08/31/13 16:30: 00 Notes: (Same as: Glucotrol) 30 min before meals. Start Date: 08/02/13 Stop Date: 08/06/13 Status: Discontinued glipiZIDE 10 mg oral tablet 10 mg=1 tab, PO, BID, 0 Refill(s) Start Date: 08/01/13 Status: Ordered glucagon 1 mg, Route: IM, Drug form: PDR/INJ, PRN, PRN Blood Glucose Results, Start date: 08/02/13 11:09:00, Duration: 30 day, Stop date: 09/01/13 11:08:00 Start Date: 08/02/13 Stop Date: 08/06/13 Status: Discontinued Kayexalate 15 gm, 60 mL, Route: PO, Drug form: SUSP, ONCE, Dosing Weight 107.273, kg, Start date: 08/04/13 13:32:00, Stop date: 08/04/13 13:32:00 Notes: (sodium polystyrene sulfonate 15 gm/60 ml JOSE MANUEL) Shake well before use. (Same as: Kayexalate, SPS) Start Date: 08/04/13 Stop Date: 08/04/13 Status: Completed Levaquin 500 mg oral tablet 500 mg=1 tab, PO, Q24H, # 7 tab, 0 Refill(s) Start Date: 08/06/13 Stop Date: 08/13/13 Status: Ordered metFORMIN 1000 mg oral tablet 1,000 mg=1 tab, PO, BID, 0 Refill(s) Start Date: 08/01/13 Stop Date: 08/04/13 Status: Discontinued metFORMIN 1000 mg oral tablet 1,000 mg, 2 tab, Route: PO, Drug form: TAB, BID-Meals, Dosing Weight 107.273, kg , Start date: 08/02/13 8:00:00, Duration: 30 day, Stop date: 08/31/13 17:00:00 Notes: (Same as: Glucophage) Take with meal Start Date: 08/02/13 Stop Date: 08/04/13 Status: Discontinued methylPREDNISolone 40 mg, 1 mL, Route: IV, Drug form: INJ, Q8Hnow, Start date: 08/01/13 20:00:00, D uration: 30 day, Stop date: 08/31/13 12:00:00 Notes: (Same as:Solu-MEDROL, A-Methapred) Start Date: 08/01/13 Stop Date: 08/04/13 Status: Discontinued normal saline 0.9% IV 1,000 mL 1,000 mL, Rate: 125 ml/hr, Infuse over: 8 hr, Route: IV, Dosing Weight 107.273 k g, Total Volume: 1,000, Start date: 08/04/13 10:52:00, Duration: 30 day, Stop da te: 09/03/13 10:51:00 Start Date: 08/04/13 Stop Date: 08/06/13 Status: Discontinued NovoLOG FlexPen 4 unit, 0.04 mL, Route: SUB-Q, Drug form: SOLN, Sliding Scale, PRN Blood Glucose Results, Start date: 08/02/13 11:08:00, Duration: 30 day, Stop date: 09/01/13 1 1:07:00 Notes: Roll in palms of hands gently; Do not shake vigorously. (Same as: Faith Mcmillan)"single patient use only" Stable for 28 days at room temperature.Expires in _ ____ days from Date Start Date: 08/02/13 Stop Date: 08/06/13 Status: Discontinued NovoLOG FlexPen 2 unit, 0.02 mL, Route: SUB-Q, Drug form: SOLN, Sliding Scale, PRN Blood Glucose Results, Start date: 08/02/13 11:07:00, Duration: 30 day, Stop date: 09/01/13 1 1:06:00 Notes: Roll in palms of hands gently; Do not shake vigorously. (Same as: Faith Mcmillan)"single patient use only" Stable for 28 days at room temperature.Expires in _ ____ days from Date Start Date: 08/02/13 Stop Date: 08/06/13 Status: Discontinued NovoLOG FlexPen 12 unit, 0.12 mL, Route: SUB-Q, Drug form: SOLN, Sliding Scale, PRN Blood Glucos e Results, Start date: 08/02/13 11:09:00, Duration: 30 day, Stop date: 09/01/13 11:08:00 Notes: Roll in palms of hands gently; Do not shake vigorously. (Same as: Faith Mcmillan)"single patient use only" Stable for 28 days at room temperature.Expires in _ ____ days from Date Start Date: 08/02/13 Stop Date: 08/06/13 Status: Discontinued NovoLOG FlexPen 10 unit, 0.1 mL, Route: SUB-Q, Drug form: SOLN, Sliding Scale, PRN Blood Glucose Results, Start date: 08/02/13 11:09:00, Duration: 30 day, Stop date: 09/01/13 1 1:08:00 Notes: Roll in palms of hands gently; Do not shake vigorously. (Same as: NovoLO G)"single patient use only" Stable for 28 days at room temperature.Expires in _ ____ days from Date Start Date: 08/02/13 Stop Date: 08/06/13 Status: Discontinued NovoLOG FlexPen 8 unit, 0.08 mL, Route: SUB-Q, Drug form: SOLN, Sliding Scale, PRN Blood Glucose Results, Start date: 08/02/13 11:09:00, Duration: 30 day, Stop date: 09/01/13 1 1:08:00 Notes: Roll in palms of hands gently; Do not shake vigorously. (Same as: NovoLO G)"single patient use only" Stable for 28 days at room temperature.Expires in _ ____ days from Date Start Date: 08/02/13 Stop Date: 08/06/13 Status: Discontinued NovoLOG FlexPen 6 unit, 0.06 mL, Route: SUB-Q, Drug form: SOLN, Sliding Scale, PRN Blood Glucose Results, Start date: 08/02/13 11:09:00, Duration: 30 day, Stop date: 09/01/13 1 1:08:00 Notes: Roll in palms of hands gently; Do not shake vigorously. (Same as: NovoLO G)"single patient use only" Stable for 28 days at room temperature.Expires in _ ____ days from Date Start Date: 08/02/13 Stop Date: 08/06/13 Status: Discontinued omeprazole 40 mg, Route: PO, Drug form: ECCAP, Daily, Dosing Weight 107.273, kg, Start date : 08/02/13 9:00:00, Duration: 30 day, Stop date: 08/31/13 9:00:00 Start Date: 08/02/13 Stop Date: 08/02/13 Status: Deleted omeprazole 40 mg oral delayed release capsule 40 mg=1 cap, PO, Daily, 0 Refill(s) Start Date: 08/01/13 Status: Ordered ondansetron 4 mg, 2 mL, Route: IVP, Drug form: INJ, Q6H, Dosing Weight 107.273, kg, PRN as n eeded for nausea/vomiting, Start date: 08/02/13 9:20:00, Duration: 30 day, Stop date: 09/01/13 9:19:00 Notes: (Same as: Zofran) Start Date: 08/02/13 Stop Date: 08/06/13 Status: Discontinued Protonix 40 mg, 1 tab, Route: PO, Drug form: ECTAB, BID, Start date: 08/02/13 21:00:00, D uration: 30 day, Stop date: 09/01/13 17:00:00 Notes: Tablet should not be chewed or crushed.(Same as: Protonix) Start Date: 08/02/13 Stop Date: 08/06/13 Status: Discontinued Protonix 40 mg, 1 tab, Route: PO, Drug form: ECTAB, QNoon, Start date: 08/02/13 12:00:00, Duration: 30 day, Stop date: 08/31/13 12:00:00 Notes: Tablet should not be chewed or crushed.(Same as: Protonix) Start Date: 08/02/13 Stop Date: 08/02/13 Status: Discontinued Robitussin DM Sugar Free 10 mL, Route: PO, Drug Form: LIQ, Dosing Weight 107.273, kg, Q6H, PRN Cough, Sta rt date: 08/01/13 21:55:00, Duration: 30 day, Stop date: 08/31/13 21:54:00 Notes: Non-Formulary Drug. (Same as: Diabetic Tussin DM) Start Date: 08/01/13 Stop Date: 08/06/13 Status: Discontinued Rocephin + Sodium Chloride 0.9% IV 100 mL 1 gm, Route: IVPB, [id number], Start date: 08/01/13 20:00:00, Duration: 30 day, Sto p date: 08/30/13 20:00:00 Notes: (Same As: Rocephin). Use with 100ml NS mini-bag PLUS and infuse over 30 min Start Date: 08/01/13 Stop Date: 08/06/13 Status: Discontinued verapamil 240 mg oral tablet, extended release 240 mg=1 tab, PO, QAM, 0 Refill(s) Start Date: 08/01/13 Status: Ordered verapamil extended release 240 mg, 1 tab, Route: PO, Drug form: ERTAB, QPM, Dosing Weight 107.273, kg, Star t date: 08/01/13 23:00:00, Duration: 30 day, Stop date: 08/31/13 21:00:00 Notes: Do not crush or chew.; "Avoid grapefruit and grapefruit juice"(Same As: C carole SR, Isoptin SR) Start Date: 08/01/13 Stop Date: 08/06/13 Status: Discontinued Xanax 0.25 mg oral tablet 0.25 mg, 1 tab, Route: PO, Drug form: TAB, Daily, Dosing Weight 107.273, kg, Sta rt date: 08/02/13 21:00:00, Duration: 30 day, Stop date: 08/31/13 21:00:00 Notes: With food or milk(Same as: Xanax) Start Date: 08/02/13 Stop Date: 08/06/13 Status: Discontinued Xopenex 1.25 mg, 3 mL, Route: NEB, Drug form: SOLN, PRN, Dosing Weight 107.273, kg, PRN Respiratory Protocol, Start date: 08/02/13 17:18:00, Duration: 30 day, Stop date : 09/01/13 17:17:00 Notes: SEE RT DOCUMENTATION (Same as:Xopenex)Non-Formulary Start Date: 08/02/13 Stop Date: 08/06/13 Status: Discontinued Zithromax 500 mg, 250 mL, Route: IVPB, Drug form: PDR/INJ, [id number], Start date: 08/01/13 2 0:00:00, Duration: 30 day, Stop date: 08/30/13 20:00:00 Notes: Same as: Zithromax Start Date: 08/01/13 Stop Date: 08/06/13 Status: Discontinued Results ELECTROLYTES 1 2 3 Most recent to oldest [Reference Range]: 140 mEq/L (08/06/13 5:33 AM) 139 mEq/L (08/05/13 3:27 AM) 138 mEq/L (08/04/13 5:24 AM) Sodium Lvl [135-145 mEq/L] 3.5 mEq/L (08/06/13 5:33 AM) 4.2 mEq/L (08/05/13 3:27 AM) 5.3 mEq/L *HI* (08/04/13 5:24 AM) Potassium Lvl [3.5-5.1 mEq/L] 108 mEq/L (08/06/13 5:33 AM) 107 mEq/L (08/05/13 3:27 AM) 104 mEq/L (08/04/13 5:24 AM) Chloride Lvl [95-109 mEq/L] 24 mEq/L (08/06/13 5:33 AM) 24 mEq/L (08/05/13 3:27 AM) 24 mEq/L (08/04/13 5:24 AM) CO2 [24-32 mEq/L] 11.5 mEq/L (08/06/13 5:33 AM) 12.2 mEq/L (08/05/13 3:27 AM) 15.3 mEq/L (08/04/13 5:24 AM) AGAP [10.0-20.0 mEq/L] CHEM PANEL 1 2 3 Most recent to oldest [Reference Range]: 1.1 mg/dL (08/06/13 5:33 AM) 1.2 mg/dL (08/05/13 3:27 AM) 1.5 mg/dL *HI* (08/04/13 5:24 AM) Creatinine Lvl [0.5-1.4 mg/dL] 69 mL/min/1.73m2 1 *NA* (08/06/13 5:33 AM) 62 mL/min/1.73m2 2 *NA* (08/05/13 3:27 AM) 47 mL/min/1.73m2 3 *NA* (08/04/13 5:24 AM) eGFR 20 mg/dL (08/06/13 5:33 AM) 28 mg/dL *HI* (08/05/13 3:27 AM) 33 mg/dL *HI* (08/04/13 5:24 AM) BUN [7-22 mg/dL] 13 (08/01/13 4:30 PM) B/C Ratio [6-25] 77 mg/dL 4 (08/06/13 5:33 AM) 224 mg/dL 5 *HI* (08/05/13 3:27 AM) 249 mg/dL 6 *HI* (08/04/13 5:24 AM) Glucose Lvl [70-99 mg/dL] 6.6 g/dL (08/01/13 4:30 PM) Total Protein [6.4-8.4 g/dL] 3.5 g/dL (08/01/13 4:30 PM) Albumin Lvl [3.5-5.0 g/dL] 3.1 g/dL (08/01/13 4:30 PM) Globulin [2.0-4.0 g/dL] 1.1 (08/01/13 4:30 PM) A/G Ratio [0.7-1.6] 7.8 mg/dL *LOW* (08/06/13 5:33 AM) 7.9 mg/dL *LOW* (08/05/13 3:27 AM) 8.4 mg/dL *LOW* (08/04/13 5:24 AM) Calcium Lvl [8.5-10.5 mg/dL] 35 unit/L (08/01/13 4:30 PM) ALT [0-65 unit/L] 33 unit/L (08/01/13 4:30 PM) AST [0-37 unit/L] 68 unit/L (08/01/13 4:30 PM) Alk Phos [39-136 unit/L] 0.3 mg/dL (08/01/13 4:30 PM) Bili Total [0.2-1.3 mg/dL] 1Result Comment: The eGFR is calculated using [...] be mul tiplied by the estimated BMI. 3Result Comment: The eGFR is calculated using [...] be mul tiplied by the estimated BMI. 4Interpretive Data: Adult reference range values reflect the clinical guidelines of the [place] [employer]. 5Interpretive Data: Adult reference range values reflect the clinical guidelines of the [place] [employer]. 6Interpretive Data: Adult reference range values reflect the clinical guidelines of the [place] [employer]. URINE CHEM 1 2 3 Most recent to oldest [Reference Range]: 116.1 mg/dL 7 *NA* (08/04/13 1:55 PM) U Creatinine 22.1 mg/dL 8 *NA* (08/04/13 1:55 PM) U Protein 7Interpretive Data: No established reference ranges. 8Interpretive Data: No established reference ranges. URINE AND STOOL 1 2 3 Most recent to oldest [Reference Range]: Clear (08/04/13 1:55 PM) UA Turbidity [Clear] Ltyellow *NA* (08/04/13 1:55 PM) UA Color 5.0 (08/04/13 1:55 PM) UA pH [5.0-8.0] 1.023 (08/04/13 1:55 PM) UA Spec Grav [<=1.030] 150 mg/dL *ABN* (08/04/13 1:55 PM) UA Glucose [Negative mg/dL] Negative (08/04/13 1:55 PM) UA Blood [Negative] Negative mg/dL *NA* (08/04/13 1:55 PM) UA Ketones [Negative mg/dL] Negative mg/dL (08/04/13 1:55 PM) UA Protein [Negative mg/dL] <=1.0 mg/dL *NA* (08/04/13 1:55 PM) UA Urobilinogen [0.1-1.0 mg/dL] Negative *NA* (08/04/13 1:55 PM) UA Bili [Negative] Negative (08/04/13 1:55 PM) UA Leuk Est [Negative] Negative (08/04/13 1:55 PM) UA Nitrite [Negative] <1 /HPF (08/04/13 1:55 PM) UA WBC [0-5 /HPF] None Seen *NA* (08/04/13 1:55 PM) UA Sq Epi HEMATOLOGY 1 2 3 Most recent to oldest [Reference Range]: 8.9 K/CMM (08/06/13 5:33 AM) 13.5 K/CMM *HI* (08/05/13 3:27 AM) 19.1 K/CMM *HI* (08/04/13 5:24 AM) WBC [3.7-10.4 K/CMM] 4.27 M/CMM *LOW* (08/06/13 5:33 AM) 4.00 M/CMM *LOW* (08/05/13 3:27 AM) 4.23 M/CMM *LOW* (08/04/13 5:24 AM) RBC [4.70-6.10 M/CMM] 13.0 g/dL *LOW* (08/06/13 5:33 AM) 12.1 g/dL *LOW* (08/05/13 3:27 AM) 12.9 g/dL *LOW* (08/04/13 5:24 AM) Hgb [14.0-18.0 g/dL] 37.9 % *LOW* (08/06/13:33 AM) 35.7 % *LOW* (08/05/13 3:27 AM) 37.6 % *LOW* (08/04/13 5:24 AM) Hct [42.0-54.0 %] 88.8 fL (08/06/13:33 AM) 89.3 fL (08/05/13 3:27 AM) 89.0 fL (08/04/13 5:24 AM) MCV [80.0-94.0 fL] 30.5 pg (08/06/13:33 AM) 30.3 pg (08/05/13 3:27 AM) 30.4 pg (08/04/13 5:24 AM) MCH [27.0-31.0 pg] 34.3 g/dL (08/06/13:33 AM) 34.0 g/dL (08/05/13 3:27 AM) 34.2 g/dL (08/04/13 5:24 AM) MCHC [32.0-36.0 g/dL] 12.6 % (08/06/13:33 AM) 12.8 % (08/05/13 3:27 AM) 12.8 % (08/04/13 5:24 AM) RDW [11.5-14.5 %] 157 K/CMM (08/06/13 5:33 AM) 171 K/CMM (08/05/13 3:27 AM) 165 K/CMM (08/04/13 5:24 AM) Platelet [133-450 K/CMM] 8.3 fL (08/06/13 5:33 AM) 8.4 fL (08/05/13 3:27 AM) 8.2 fL (08/04/13 5:24 AM) MPV [7.4-10.4 fL] Medications Administered During Your Visit No data available for this section Immunizations No data available for this section Procedures Procedure Type Body Site Date of Procedure Related Diagnosis Bursa operation1 Cardiac catheterization Cholecystectomy Colon operation Foot joint operations Nasal operation Rotator cuff repair2 Tendon operation 1left knee 2right Social History Social History Type Response Smoking Status Former smoker, Exposure to Tobacco Smoke None, Cigarette Smoking Last 365 Days No, Reg Smoking Cessation Counseling No Assessment and Plan Extracted from: Title: Clinical Document Author: Wolf Dumas Date: 08/06/13 Progress Daily [facility] Completed: Jul, 14:12 by Wolf Dumas MD RM: 319 - 1D, SE [id number], GORDO [id number] (: 1945) M Attending: Mckenzie Rutledge MDPhone: Service: Pulmonary Service Reason for Admission: COPD EXACERBATION Working DRG: Chronic obstructive pulmonary disease w CC Code status: None Specified=FULL CODECurrent diet: Isolation: None Documented Allergies: HYDROcodone, Vicodin(Rash, NOS), codeine, Darvocet A500, Darvon SUBJECTIVE sob less breathing better no fever OBJECTIVE VitalsTmp(F)Tmp(C)[id number] 08/06 11:0997.436.43zgle827/60---7217--------- 08/06 08:11 1694 21%--- 08/06 07:3597.436.40kazl724/78---5818--------- 08/06 04:1197.636.06jarn369/69---6018--------- 08/05 23:3597.536.73boxl391/78---5118--------- 24 Hr Tmax: 97.6F (36.44c) at 08/06 04:11Vital Signs are the last 5 in the past 48 hours. 24 Hr Tmin: 97.4F (36.33c) at 08/06 11:09Weights are the last 5 in 60 days, plus initial. DateWt(kg)Wt(lb)Ht(cm)Ht(in)MethodBMIBSA 08/01 (initial)107.27 236.56017.80 70.00Stated 33.92.30 24 Hr Point of Care Glucoses 08/06 1111Glucose SZL757 H 08/06 0735Glucose POC70 08/05 2019Glucose CYZ054 H 08/05 1544Glucose ZBY503 H Most Recent Scores: 08/06/13Pain Intensity NRS (0-10)0 08/06/13Braden Score22 08/06/13Glasgow Coma Score15 08/06/13[place] Fall Score6 Lines, Tubes, and Drains: 08/05/2013 20:09 Peripheral Lines: Hand, left 22 gauge Over the needle catheter 08/05/2013 20:09 Peripheral Lines: Antecubital, right 22 gauge 08/02/2013 20:00 Peripheral Lines: Antecubital Left Over the needle catheter 20 gauge 08/01/2013 17:04 Peripheral Lines: Hand, right (no surgical procedures documented) ASSESSMENT & EXAM HEENT:normocephalic,atraumatic Skin:no rash Chest: symmetrical expansion, no wheezing,no rales, no crackles Heart: Regular rhythm, no murmurs Abdomen: Soft, nontender, bowel sounds present Ext: no edema TECHNICAL SALES ADVISOR: alert and oriented, no focal neurological defecits PLAN & TREATMENT discharge home DIAGNOSES & PROBLEMS COPD exacerbation, failure of outpatient treatment Obesity HTN anxiety disorder Ready for Discharge (Yes/No)? Marshall still necessary (Yes/No): Line still necessary (Yes/No): 24hr Labs 08/06 1111 Glucose MOJ174 H 08/06 0735 Glucose POC70 08/06 0533 Glucose Lvl77 BUN20 Creatinine Lvl1.1 Sodium Ysg946 Potassium Lvl3.5 Chloride Scz551 CO224 AGAP11.5 Calcium Lvl7.8 L eGFR69 WBC8.9 RBC4.27 L Hgb13.0 L Hct37.9 L MCV88.8 MCH30.5 MCHC34.3 RDW12.6 Yjbhdivm096 MPV8.3 08/05 2019 Glucose MSK794 H 08/05 1544 Glucose SAV007 H VitalsTmp(F)[id number] 08/06 11:0997.135222/6017------ 08/06 08:11 1694 21% 08/06 07:3597.429417/7818------ 08/06 04:1197.250146/6918------ 08/05 23:3597.180091/7818------ 24 Hr Tmax: 97.6F (36.44c) at 08/06 04:11Vital Signs are the last 5 in the past 48 hours. DateWt(kg)Wt(lb)Ht(cm)Ht(in)Method 08/01 (initial)107.27 236.92223.80 70.00Stated I&ORecordInOutBal 07/1923hr Tot 260 0 260 07/1823hr Tot 2590 3 2587 Medications (21) Active Scheduled Meds (9): 08/02/13 ALPRAZolam (Xanax 0.25 mg oral tablet) 0.25 mg PO Daily 08/01/13 atenolol (atenolol 25 mg oral tablet) 25 mg PO BID 08/02/13 atorvastatin 40 mg PO Daily 08/01/13 azithromycin (Zithromax) 500 mg IVPB [id number] 166.67 ml/hr 08/01/13 cefTRIAXone + Sodium Chloride 0.9% IV 100 mL (Rocephin + Sodium Chloride 0.9% IV 100 mL) 1 gm IVPB [id number] 200 ml/hr 08/01/13 clopidogrel 75 mg PO Bedtime 08/02/13 glipiZIDE 10 mg PO BID-Before Meals 08/02/13 pantoprazole (Protonix) 40 mg PO BID 08/01/13 verapamil (verapamil extended release) 240 mg PO QPM Unscheduled Meds: None PRN Meds (12): 08/02/13 Dextrose 50% in Water IV 25 gm IVP PRN 08/01/13 dextromethorphan-guaiFENesin (Robitussin DM Sugar Free) 10 mL PO Q6H 08/02/13 glucagon 1 mg IM PRN 08/02/13 insulin aspart (NovoLOG FlexPen) 2 unit SUB-Q Sliding Scale 08/02/13 insulin aspart (NovoLOG FlexPen) 4 unit SUB-Q Sliding Scale 08/02/13 insulin aspart (NovoLOG FlexPen) 6 unit SUB-Q Sliding Scale 08/02/13 insulin aspart (NovoLOG FlexPen) 8 unit SUB-Q Sliding Scale 08/02/13 insulin aspart (NovoLOG FlexPen) 10 unit SUB-Q Sliding Scale 08/02/13 insulin aspart (NovoLOG FlexPen) 12 unit SUB-Q Sliding Scale 08/02/13 levalbuterol (Xopenex) 1.25 mg NEB PRN 08/02/13 ondansetron 4 mg IVP Q6H 08/01/13 zolpidem (Ambien) 10 mg PO Bedtime One Time Meds: None Continuous Infusions: None
[2018-07-05] MEDS ORDERED: SODIUM CHLORIDE 0.9% 1000ML 1,000 ML IV SCH (19:07)
[2018-07-05] MEDS ORDERED: METHYLPREDNISOLONE SOD SUCC 125 MG/2ML VIAL IV ONE (19:15)
[2018-07-05] MEDS ORDERED: LEVOFLOXACIN 750MG/D5W 150ML 150 ML IV ONE (19:15)
[2018-07-05] MEDS ORDERED: DEXTROSE 50% SYRINGE 50 ML IV PRN (19:30)
[2018-07-05] MEDS ORDERED: IBUPROFEN 400 MG TAB PO PRN (19:30)
[2018-07-05] MEDS ORDERED: ONDANSETRON HCL INJ 2MG/ML 2ML 2 MG/ML VIAL IV PRN (19:30)
[2018-07-05] MEDS ORDERED: DIPHENHYDRAMINE HCL INJ 50 MG/ML VIAL IV PRN (19:30)
[2018-07-05] MEDS ORDERED: ZOLPIDEM TARTRATE 5 MG TAB PO PRN (19:30)
[2018-07-05] MEDS ORDERED: CLONIDINE HCL 0.2 MG TAB PO PRN (19:30)
[2018-07-05] MEDS ORDERED: ENALAPRILAT IV INJ 1.25 MG/ML VIAL IV PRN (19:30)
[2018-07-05] MEDS ORDERED: SODIUM CHLORIDE 0.9% 1000ML 1,000 ML IV ONE (19:30)
--- NOTE | 2018-07-05 19:44 | Diagnostic Imaging Report ---
EXAMINATION: CXR 2 VIEW - HOPD INDICATION: 73-year-old male Chest congestion ^[id number] ^[id number] COMPARISON: None FINDINGS: AP/lateral TUBES and LINES: Event recorder overlies left heart border. Suture anchor in the right humeral head. LUNGS/PLEURA: The lungs are clear. No pleural effusion or pneumothorax. HEART AND MEDIASTINUM: The cardiomediastinal silhouette is unremarkable. BONES AND SOFT TISSUES: No acute osseous lesion. Mild wedging of a vertebral body near the thoracolumbar junction. Soft tissues are unremarkable. UPPER ABDOMEN: No free air under the diaphragm. IMPRESSION: No acute pulmonary parenchymal process. Mild anterior wedge compression deformity of a vertebral body near the thoracal lumbar junction, age indeterminate. Signed by: Jp Delgado MD on 07/05/2018 7:40 PM
[2018-07-05] MEDS ORDERED: INSULIN REGULAR, HUMAN 100 UNIT/1 ML 3ML VIAL IV ONE (20:15)
[2018-07-05] MEDS ORDERED: LACTATED RINGER'S 1,000 ML IV SCH (20:15)
[2018-07-05] MEDS: CEFTRIAXONE SOD 1 GM/NS 50 ML 50 ML IV SCH (20:15)
--- OUTSIDE RECORDS SUMMARY | 2018-07-05 20:41 | XMS REPORT | Clinical Summary ---
Author Author [facility] [employer] [facility] Address Unknown Phone Unavailable Care Team Providers Care Mesh Man Name Role Phone Bunny Lenz MD PCP [...] left heart cath w lv gram cors [[id number] (CPT)] 12/31/2017 Surgery Procedural Cardiology Joshua Gomez MD Unstable angina; Coronary artery disease, angina presence unspecified, unspecified vessel or lesion type, unspecified whether [place] or transplanted heart 12/31/2017 Hospital Procedural Cardiology [...] unspecified vessel or lesion type, unspecified whether [place] or transplanted heart ECG 12-LEAD STAT 12/31/2017 10:04 AM CDT ESTIMATED GFR STAT 12/31/2017 9:50 AM CDT PROTHROMBIN TIME WITH INR STAT 12/31/2017 9:50 AM CDT BASIC METABOLIC PANEL STAT 12/31/2017 9:50 AM CDT HC COMPLETE BLD COUNT STAT 12/31/2017 W/AUTO DIFF 9:50 AM CDT after 07/04/2017 Results * Cv laboratory clerk procedure (12/31/2017 12:22 PM CDT) Narrative Performed [...] the right radial arterial approach using 6 urdu sheath and Ras catheter with no procedural [...] concerns were addressed satisfactorily. Performing Organization Address [facility] Phone Number [facility] [address] [place] [address] * ECG 12 lead (12/31/2017 10:04 AM CDT) Ventricular rate 60 [facility] Atrial rate 60 [facility] MN interval 216 [facility] QRSD interval 96 [facility] QT interval 414 [facility] QTC interval 414 [facility] P axis 1 25 [facility] QRS axis 1 -30 [facility] T wave axis 9 [facility] EKG impression Sinus rhythm with 1st degree [facility] AV block-Left axis deviation-Incomplete right bundle branch block-Abnormal ECG-No previous ECGs available- Performing Organization Address City/[facility] Phone Number [address] [address] * Estimated GFR (12/31/2017 9:50 AM CDT) Estimated GFR 69 mL/min/1.73 m2 [facility] OF Comment: PATHOLOGY AND CatergoryUnitsInte GENOMIC MEDICINE rpretation G1 >=90 Normal or high G2 60-89Mildly decreased P2n63-52 Mildly to moderately decreased P8c52-71 Moderately to severely decreased G4 15-29Severely decreased G5 <15Kidney failure The eGFR was calculated using the Chronic Kidney Disease Epidemiology Collaboration (CKD-EPI) equation. Interpretation is based on recommendations of the National Kidney Foundation-Kidney Disease Outcomes Quality Initiative (NKF-KDOQI) published in 2014. Specimen Plasma specimen Performing Organization Address City/State/Zipcode Phone Number [address] [address] PATHOLOGY AND GENOMIC MEDICINE * Prothrombin time with INR (12/31/2017 9:50 AM CDT) Prothrombin time 15.5 (H) 12.0 - 15.0 sec [facility] OF PATHOLOGY AND GENOMIC MEDICINE INR 1.2 [facility] OF Comment: PATHOLOGY AND The International Normalized GENOMIC MEDICINE Ratio (INR) is a therapeutic monitoring tool for patients who are stable on oral anticoagulant therapy. An INR of 2.0-3.0 is suggested for deep vein thrombosis/pulmonary embolism. Specimen Blood Performing Organization Address City/State/Zipcode Phone Number [address] [address] PATHOLOGY AND GENOMIC MEDICINE * CBC with platelet and differential (12/31/2017 9:50 AM CDT) WBC 9.29 4.50 - 11.00 k/uL [facility] OF PATHOLOGY AND GENOMIC MEDICINE RBC 5.16 4.40 - 6.00 m/uL [facility] PATHOLOGY AND GENOMIC MEDICINE HGB 15.8 14.0 - 18.0 g/dL [facility] OF PATHOLOGY AND GENOMIC MEDICINE HCT 46.9 41.0 - 51.0 % [facility] OF PATHOLOGY AND GENOMIC MEDICINE MCV 90.9 82.0 - 100.0 fL [facility] OF PATHOLOGY AND GENOMIC MEDICINE MCH 30.6 27.0 - 34.0 pg [facility] OF PATHOLOGY AND GENOMIC MEDICINE MCHC 33.7 31.0 - 37.0 g/dL [facility] OF PATHOLOGY AND GENOMIC MEDICINE RDW - SD 40.0 37.0 - 55.0 fL [facility] OF PATHOLOGY AND GENOMIC MEDICINE MPV 9.9 8.8 - 13.2 fL [facility] PATHOLOGY AND GENOMIC MEDICINE Platelet count 198 150 - 400 k/uL [facility] OF PATHOLOGY AND GENOMIC MEDICINE Nucleated RBC 0.00 /100 WBC [facility] OF PATHOLOGY AND GENOMIC MEDICINE Neutrophils 60.6 39.0 - 69.0 % [facility] OF PATHOLOGY AND GENOMIC MEDICINE Lymphocytes 27.7 25.0 - 45.0 % [facility] OF PATHOLOGY AND GENOMIC MEDICINE Monocytes 8.1 0.0 - 10.0 % [facility] OF PATHOLOGY AND GENOMIC MEDICINE Eosinophils 2.7 0.0 - 5.0 % [facility] OF PATHOLOGY AND GENOMIC MEDICINE Basophils 0.6 0.0 - 1.0 % [facility] OF PATHOLOGY AND GENOMIC MEDICINE Immature granulocytes 0.3Comment: "Immature 0.0 - 1.0 % [facility] granulocytes" (promyelocytes, PATHOLOGY AND myelocytes, metamyelocytes) GENOMIC MEDICINE Specimen Blood Performing Organization Address City/[facility] Phone Number [address] [address] PATHOLOGY AND GENOMIC MEDICINE * Basic metabolic panel (12/31/2017 9:50 AM CDT) Sodium 138 135 - 148 mEq/L [facility] OF PATHOLOGY AND GENOMIC MEDICINE Potassium 3.9 3.5 - 5.0 mEq/L [facility] OF PATHOLOGY AND GENOMIC MEDICINE Chloride 99 98 - 112 mEq/L [facility] OF PATHOLOGY AND GENOMIC MEDICINE CO2 25 24 - 31 mEq/L [facility] PATHOLOGY AND GENOMIC MEDICINE Anion gap 14@ANIO 7 - 15 mEq/L [facility] OF PATHOLOGY AND GENOMIC MEDICINE BUN 17 8 - 23 mg/dL [facility] PATHOLOGY AND GENOMIC MEDICINE Creatinine 1.07 0.70 - 1.20 mg/dL [facility] PATHOLOGY AND GENOMIC MEDICINE Glucose 174 (H) 65 - 99 mg/dL [facility] PATHOLOGY AND GENOMIC MEDICINE Calcium 9.8 8.8 - 10.2 mg/dL [facility] PATHOLOGY AND GENOMIC MEDICINE Specimen Plasma specimen Performing Organization Address City/[facility]/Zipcode Phone Number [address] [address] PATHOLOGY AND GENOMIC MEDICINE after 07/04/2017 Insurance Payer Benefit Subscriber ID Type Phone Address Plan / Group MEDICARE MEDICARE xxxxxxxxxx Medicare [place], [place] PART A AND B BCBS BCBS OUT xxxxxxxxxxxx PPO OF STATE Advance Directives Patient has advance care planning documents on file. For more information, walt kim contact: Yogi Eastman [address] [place] [address]
[2018-07-05] MEDS: INSULIN REGULAR, HUMAN 100 UNIT/1 ML 3ML VIAL SQ SCH (21:00)
[2018-07-05] MEDS ORDERED: CEFTRIAXONE SOD 1 GM VIAL IV SCH (21:00)
--- NOTE | 2018-07-05 21:34 | NUR ---
HAVING ISSUES WITH EMAR ON THIS PATIENT, TAKING UPWARDS OF 30-45 MINUTES FOR IT TO LOAD? ALL OTHER PATIENTS E-MARS LOAD NORMALLY? UNSURE WHY UNABLE TO LOAD
[2018-07-05 22:12] VITALS: BP 148/67
[2018-07-05] MEDS ORDERED: SOTALOL80 MG PO (22:49)
[2018-07-05 22:50] VITALS: BP 148/67
[2018-07-05] MEDS: ALBUTEROL/IPRATROPIUM 3 ML NEB NEB SCH (23:00)
[2018-07-05] MEDS ORDERED: JANUVIA100 MG PO (23:53)
[2018-07-05] MEDS ORDERED: DYCLONINE HCL5 GM PO (23:53)
[2018-07-05] MEDS: ALPRAZOLAM 0.5 MG TAB PO SCH (23:54)
[2018-07-06] VITALS (7 sets, daily range): BP systolic 105–141; BP diastolic 55–69
[2018-07-06] MEDS ORDERED: BENTYL10 MG/1 ML PO (00:10)
[2018-07-06] MEDS ORDERED: BENICAR20 MG PO (00:10)
--- NOTE | 2018-07-06 00:12 | NUR ---
CALLED AND SPOKE TO DR MONTANA,N/O RECEIVED TO CONTINUE ALL HOME MEDICATIONS.
[2018-07-06] MEDS ORDERED: DICYCLOMINE HCL20 MG PO (00:13)
[2018-07-06] MEDS: ALBUTEROL/IPRATROPIUM 3 ML NEB NEB SCH ×6 (03:00→23:00)
--- NOTE | 2018-07-06 07:01 | NUR ---
REPORT GIVEN TO ONCOMING NURSE.WALKING ROUNDS MADE.PT RESTING IN BED WITH NO S/S OF DISTRESS.
--- NOTE | 2018-07-06 07:05 | NUR ---
RCD PT AT BED PT IS ALERT AND ORIENTED PT RESTING ON BED NO SIGNS OF ANY DISTRESS NOTED FAMILY AT BED SIDE BED LOW AND LOCKED CALL LIGHT IN REACH
[2018-07-06] MEDS: GLIPIZIDE 5 MG TAB PO SCH ×2 (07:30→16:30)
[2018-07-06] MEDS: FAMOTIDINE 20 MG TAB PO SCH ×2 (07:30→16:30)
[2018-07-06] MEDS: INSULIN REGULAR, HUMAN 100 UNIT/1 ML 3ML VIAL SQ SCH ×4 (07:30→20:27)
[2018-07-06] MEDS: CEFTRIAXONE SOD 1 GM/NS 50 ML 50 ML IV SCH ×2 (08:30→20:13)
[2018-07-06] MEDS: ATORVASTATIN 40 MG TAB PO SCH (09:00)
[2018-07-06] MEDS: DICYCLOMINE HCL 20 MG TAB PO SCH ×2 (09:00→16:34)
[2018-07-06] MEDS: PANTOPRAZOLE SOD 40 MG TABEC PO SCH (09:00)
[2018-07-06] MEDS: INSULIN GLARGINE 100 UNITS/ML VIAL SQ SCH ×2 (09:00→20:27)
[2018-07-06] MEDS: SOTALOL HCL 80 MG TAB PO SCH (09:00)
[2018-07-06] MEDS: RANOLAZINE 500 MG TABSR PO SCH ×2 (09:00→16:34)
[2018-07-06] MEDS: SITAGLIPTIN 100 MG TAB PO SCH (09:00)
[2018-07-06] MEDS: APIXABAN 5 MG TABLET PO SCH (09:00)
[2018-07-06] MEDS: METHYLPREDNISOLONE SOD SUCC 40 MG/ML VIAL 1ML IV SCH ×2 (09:15→16:34)
--- NOTE | 2018-07-06 15:10 | NUR ---
Visit made by the Spiritual Care Department Pastoral Visitor, Honey Montes. PV provided pastoral presence, hospitality, and supportive listening. Pastoral Visitor informed pt/family of the scope of [employer] and availability. JESSIE ESPINOZA Admission Discharge Rn Spiritual Care Department O: [phone] Pager: [phone] ([phone] number calling from)
--- NOTE | 2018-07-06 16:27 | History and Physical ---
PRIMARY CARE PHYSICIAN: Dr. Bunny Lenz. CHIEF COMPLAINT: Failed outpatient treatment for acute exacerbation of COPD with multiple rounds of antibiotics, steroids, and nebulizer treatments. SUMMARY: This is a 73 years old male with chronic obstructive pulmonary disease and pulmonary calcification with repeated daily CT scan of the chest to monitor the calcification for the past three weeks or so. The patient having increasing shortness of breath and wheezing, try to use his nebulizer treatment, multiple rounds of oral antibiotics along with oral steroids, did not improve, came to see his PCP, Dr. Lenz in the office and basically was having severe wheezing, hypoxic. Therefore, the patient was sent to the emergency room for admission. Here, the patient received IV steroids. He has also received multiple rounds of nebulizer treatments, did improve somewhat, but not good enough for discharge home. The patient now admitted for further treatment. Overnight, the patient continued with his treatment. He does have increase in BUN and creatinine due to cough and exacerbation of his bronchitis with difficulty breathing. The patient is otherwise stable. PAST MEDICAL HISTORY: Diabetes type 2, hypertension, COPD, pulmonary nodule, paroxysmal atrial fibrillation with history of ablation, chronic heart block episodically, coronary artery disease with stent, mitral valve prolapse, anticoagulant therapy, anxiety, depression, history of skull fractures with bleed, obstructive sleep apnea, diverticulitis with history of partial colon resection, history of TIA, chronic anemia, reflux, dyslipidemia. PAST SURGICAL HISTORY: Varicose seal surgery lower extremity, left knee, left foot, right foot; cataract surgery, coronary stent, right shoulder surgery, left elbow. Partial colon resection due to diverticulitis with perforation. Multiple cardiac catheterization. AV jimbo ablation for atrial fibrillation. Loop recorder implanted. Cholecystectomy. SOCIAL HISTORY: The patient was an ex-smoker, quit many, many years ago. No alcohol consumption. No recreational drug. ALLERGIES: LEVAQUIN, TRAMADOL, ACETAMINOPHEN, PROPOXYPHENE, NORCO, CODEINE, MORPHINE. HOME MEDICATIONS: List reviewed. PHYSICAL EXAMINATION: VITAL SIGNS: Temperature is 98, blood pressure 141/58, pulse rate 101, respiration of 22. GENERAL: The patient is not in acute distress. HEENT: Normocephalic, atraumatic. Anicteric. NECK: Supple grossly. PULMONARY: Bilateral upper lower lung field coarse and diminished air entry with poor excursion due to coughing on deep inspiration. CARDIOVASCULAR: Regularly irregular rate control, left chest loop recorder. No significant gallop or rub. Positive for stable murmur. ABDOMEN: Soft, obese. EXTREMITIES: No cyanosis or edema. NEUROLOGIC: Moving all extremities without any focal deficit. LABORATORY DATA: Still pending. IMPRESSION: 1. Acute exacerbation of chronic obstructive pulmonary disease. 2. Acute bronchitis and failed outpatient treatment. 3. Hyperglycemia due to steroids given. 4. Multiple chronic baseline problems. PLAN: Continue with steroids, nebulizer treatment, home medication. Resume anticoagulant therapy with Eliquis. Repeated lab work. We will monitor the patient closely. Adjust his medication. We will place the patient on Rocephin and azithromycin for his acute exacerbation of COPD and bronchitis. MD JESSICA Pritchett/DEVAN /[id number] cc: Bunny Lenz MD
--- NOTE | 2018-07-06 18:45 | NUR ---
PT RESTING ON BED BED SIDE REPORT GIVEN TO ONCOMING NURSE
[2018-07-06] MEDS: ZOLPIDEM TARTRATE 10 MG TAB PO SCH (20:12)
[2018-07-06] MEDS: OLMESARTAN 20 MG TAB PO SCH (20:14)
[2018-07-06] MEDS: ALPRAZOLAM 0.5 MG TAB PO SCH (20:30)
[2018-07-07 00:01] VITALS: BP 117/59
[2018-07-07] MEDS: METHYLPREDNISOLONE SOD SUCC 40 MG/ML VIAL 1ML IV SCH ×3 (01:00→16:39)
[2018-07-07] MEDS: ALBUTEROL/IPRATROPIUM 3 ML NEB NEB SCH ×6 (02:00→23:40)
[2018-07-07 04:56] VITALS: BP 113/57
[2018-07-07 05:13] LABS: BASOPHILS % 0.1 % (0.0-1.0); HEMATOCRIT 43.1 % (38.2-49.6); HEMOGLOBIN 14.7 g/dL (14.0-18.0); LYMPHOCYTES # (AUTO) 1.4 (1.0-3.2); LYMPHOCYTES % 7.9 % (18.0-39.1); MEAN CORPUSCULAR HEMOGLOBIN 29.2 pg (28-32); MEAN CORPUSCULAR HGB CONC 34.1 g/dL (31-35); MEAN CORPUSCULAR VOLUME 85.7 fL (81-99); MONOCYTES # (AUTO) 0.4 (0.2-0.8); MONOCYTES % 2.5 % (4.4-11.3); NEUTROPHILS # (AUTO) 15.9 (2.1-6.9); NEUTROPHILS % 88.7 % (38.7-80.0); PLATELET COUNT 198 x10e3/uL (140-360); RED BLOOD COUNT 5.03 x10e6/uL (4.3-5.7); RED CELL DISTRIBUTION WIDTH 12.5 % (11.7-14.4)
[2018-07-07 05:53] LABS: ANION GAP 12.6 mmol/L (8-16); CALCIUM 9.3 mg/dL (8.4-10.2); CREATININE, SERUM 1.49 mg/dL (0.72-1.25); POTASSIUM 4.6 mmol/L (3.5-5.1)
--- NOTE | 2018-07-07 07:25 | NUR ---
BEDSIDE REPORT GIVEN TO ONCOMING NURSE.
[2018-07-07 07:26] LABS: BAND NEUTROPHILS % (MANUAL) 5 %; LYMPHOCYTES % (MANUAL) 2 % (19-48); NEUTROPHILS % (MANUAL) 89 % (40-74); PLATELET ESTIMATE ADEQUATE; PLATELET MORPHOLOGY COMMENT NORMAL; RBC MORPHOLOGY COMMENT NORMAL
[2018-07-07 08:19] VITALS: BP 133/77
[2018-07-07] MEDS: DICYCLOMINE HCL 20 MG TAB PO SCH ×2 (08:45→16:39)
[2018-07-07] MEDS: FAMOTIDINE 20 MG TAB PO SCH ×2 (08:45→16:39)
[2018-07-07] MEDS: SITAGLIPTIN 100 MG TAB PO SCH (08:45)
[2018-07-07] MEDS: PANTOPRAZOLE SOD 40 MG TABEC PO SCH (08:45)
[2018-07-07] MEDS: SOTALOL HCL 80 MG TAB PO SCH (08:45)
[2018-07-07] MEDS: INSULIN GLARGINE 100 UNITS/ML VIAL SQ SCH ×2 (08:45→21:06)
[2018-07-07] MEDS: RANOLAZINE 500 MG TABSR PO SCH ×2 (08:45→16:40)
[2018-07-07] MEDS: GLIPIZIDE 5 MG TAB PO SCH ×2 (08:45→16:39)
[2018-07-07] MEDS: CEFTRIAXONE SOD 1 GM/NS 50 ML 50 ML IV SCH ×2 (08:45→20:55)
[2018-07-07] MEDS: APIXABAN 5 MG TABLET PO SCH (08:45)
[2018-07-07] MEDS: INSULIN REGULAR, HUMAN 100 UNIT/1 ML 3ML VIAL SQ SCH ×4 (08:45→21:06)
[2018-07-07] MEDS: ATORVASTATIN 40 MG TAB PO SCH (09:00)
[2018-07-07 11:54] VITALS: BP 128/70
--- NOTE | 2018-07-07 14:37 | NUR ---
CASE MANAGEMENT INITIAL ASSESSMENT Cartoon Designer to bedside to discuss plan of care with patient/family. CM/SW role and care transitions discussed. Anticipated discharge plan discussed along with duration of care. CM discussed patients right to make decisions in care. CM work hours given. Patient lives: PATIENT LIVES IN [address] HOME IN [place], [place] WITH HSUBAND Admit/Transfer: ED Hospital/ER visits since last admit:NONE POA/Emergency contact: - MCKAY BOGGS: [phone] Current/Previous Home Health: NONE PCP/Follow-up Care: NO PCP Current/Previous DME: NONE Medications (referring to index hospitalization or the first time you were in the hospital) a. Were changes made in your medications when you were in the hospital on [date of index hospitalization]? N/A Note: If no or not sure, please skip to question d b. Did you understand the changes? N/A c. Were you able to obtain your new medications right away? N/A d. Were you able to take your medications like the doctor wanted you to? N/A e. Did the hospital give you an accurate, easy to understand list of medications when you left? N/A Scale of 1-10 how comfortable does patient feel with disease management in outpatient setting: Other Services: NONE PATIENT AMBULATORY AND INDEPENDENT Employment Status: UNEMPLOYED Areas of Concerns: WOUND CARE Referral Needs: WOUND CARE- OUTPATIENT Education Needs: WOUND CARE IMM/COOPER given and signed (if applicable): IMM Goal for discharge: DISCHARGE HOME WITH WOUND CARE EDUCATION CM left business card at the bedside with contact information. Name and number was also written on the patients whiteboard. Patient verbalized understanding of discussion. CM will follow-up with ongoing discharge and transition of care needs. Addendum: 07/07/18 at 1451 by Yamile Torres CM WRONG PATIENT; DISREGARD
--- NOTE | 2018-07-07 14:51 | NUR ---
CASE MANAGEMENT INITIAL ASSESSMENT Caser In to bedside to discuss plan of care with patient/family. CM/SW role and care transitions discussed. Anticipated discharge plan discussed along with duration of care. CM/SW discussed patients right to make decisions in care. CM work hours given. Patient lives: PATIENT LIVES IN SINGLE STORY HOME WITH IN [facility] [id number] Admit/Transfer: ED Hospital/ER visits since last admit: NONE POA/Emergency contact: AREN GONZALEZ- [phone] Current/Previous Home Health: [facility] PCP/Follow-up Care: DR. JAIN Current/Previous DME: [facility] IF NEEDED BUT STABLE WALKING Medications (referring to index hospitalization or the first time you were in the hospital) a. Were changes made in your medications when you were in the hospital on [date of index hospitalization]? N/A Note: If no or not sure, please skip to question d b. Did you understand the changes? N/A c. Were you able to obtain your new medications right away? N/A d. Were you able to take your medications like the doctor wanted you to? N/A e. Did the hospital give you an accurate, easy to understand list of medications when you left? N/A Scale of 1-10 how comfortable does patient feel with disease management in outpatient setting: Other Services: NONE AT THIS TIME Employment Status: RETIRED Areas of Concerns: NONE AT THIS TIME; APTIENT ON ROOM AIR; NO NEED FOR HOME O2 AT THIS TIME Referral Needs: NONE Education Needs: COPD EDUCATION ; POSSIBLE HOME HEALTH FOR EDUCATION AND MAINTENANCE IMM/COOPER given and signed (if applicable): IMM Goal for discharge: DISCHARGE HOME WITH NO NEEDS CM/SW left business card at the bedside with contact information. Name and number was also written on the patients whiteboard. Patient verbalized understanding of discussion. CM will follow-up with ongoing discharge and transition of care needs.
[2018-07-07 15:32] VITALS: BP 130/64
[2018-07-07 20:04] VITALS: BP 122/64
[2018-07-07] MEDS: OLMESARTAN 20 MG TAB PO SCH (20:48)
[2018-07-07] MEDS: ZOLPIDEM TARTRATE 10 MG TAB PO SCH (20:55)
[2018-07-07] MEDS: ALPRAZOLAM 0.5 MG TAB PO SCH (20:55)
[2018-07-08] VITALS (7 sets, daily range): BP systolic 100–160; BP diastolic 61–83
[2018-07-08] MEDS: METHYLPREDNISOLONE SOD SUCC 40 MG/ML VIAL 1ML IV SCH ×3 (00:37→17:13)
[2018-07-08] MEDS: ALBUTEROL/IPRATROPIUM 3 ML NEB NEB SCH ×5 (03:00→20:19)
[2018-07-08] MEDS: INSULIN REGULAR, HUMAN 100 UNIT/1 ML 3ML VIAL SQ SCH ×4 (08:00→21:30)
[2018-07-08] MEDS: PANTOPRAZOLE SOD 40 MG TABEC PO SCH (08:57)
[2018-07-08] MEDS: ATORVASTATIN 40 MG TAB PO SCH (08:57)
[2018-07-08] MEDS: SOTALOL HCL 80 MG TAB PO SCH (08:57)
[2018-07-08] MEDS: FAMOTIDINE 20 MG TAB PO SCH ×2 (08:57→17:13)
[2018-07-08] MEDS: GLIPIZIDE 5 MG TAB PO SCH ×2 (08:57→17:13)
[2018-07-08] MEDS: SITAGLIPTIN 100 MG TAB PO SCH (08:57)
[2018-07-08] MEDS: APIXABAN 5 MG TABLET PO SCH (08:57)
[2018-07-08] MEDS: DICYCLOMINE HCL 20 MG TAB PO SCH ×2 (08:57→17:13)
[2018-07-08] MEDS: RANOLAZINE 500 MG TABSR PO SCH ×2 (08:57→17:13)
[2018-07-08] MEDS: CEFTRIAXONE SOD 1 GM/NS 50 ML 50 ML IV SCH ×2 (08:57→21:25)
[2018-07-08] MEDS: INSULIN GLARGINE 100 UNITS/ML VIAL SQ SCH ×2 (09:00→21:30)
[2018-07-08] MEDS: ZOLPIDEM TARTRATE 10 MG TAB PO SCH (21:25)
[2018-07-08] MEDS: ALPRAZOLAM 0.5 MG TAB PO SCH (21:26)
[2018-07-08] MEDS: OLMESARTAN 20 MG TAB PO SCH (21:26)
[2018-07-09] VITALS (9 sets, daily range): BP systolic 96–160; BP diastolic 65–83
[2018-07-09] MEDS: ALBUTEROL/IPRATROPIUM 3 ML NEB NEB SCH ×6 (00:08→23:49)
[2018-07-09] MEDS: METHYLPREDNISOLONE SOD SUCC 40 MG/ML VIAL 1ML IV SCH ×3 (02:20→16:36)
[2018-07-09 05:13] LABS: BASOPHILS % 0.1 % (0.0-1.0); EOSINOPHILS % 0.1 % (0.0-6.0); HEMATOCRIT 45.6 % (38.2-49.6); HEMOGLOBIN 15.4 g/dL (14.0-18.0); LYMPHOCYTES # (AUTO) 1.1 (1.0-3.2); LYMPHOCYTES % 7.2 % (18.0-39.1); MEAN CORPUSCULAR HEMOGLOBIN 28.8 pg (28-32); MEAN CORPUSCULAR HGB CONC 33.8 g/dL (31-35); MEAN CORPUSCULAR VOLUME 85.2 fL (81-99); MONOCYTES # (AUTO) 0.6 (0.2-0.8); NEUTROPHILS % 87.7 % (38.7-80.0); PLATELET COUNT 207 x10e3/uL (140-360); RED BLOOD COUNT 5.35 x10e6/uL (4.3-5.7); RED CELL DISTRIBUTION WIDTH 12.4 % (11.7-14.4)
[2018-07-09 05:31] LABS: ANION GAP 11.1 mmol/L (8-16); CALCIUM 9.1 mg/dL (8.4-10.2); CREATININE, SERUM 1.24 mg/dL (0.72-1.25); POTASSIUM 4.1 mmol/L (3.5-5.1)
[2018-07-09] MEDS: GLIPIZIDE 5 MG TAB PO SCH ×2 (07:30→16:30)
[2018-07-09] MEDS: FAMOTIDINE 20 MG TAB PO SCH ×2 (07:30→16:30)
[2018-07-09] MEDS: INSULIN REGULAR, HUMAN 100 UNIT/1 ML 3ML VIAL SQ SCH ×4 (07:30→20:30)
[2018-07-09] MEDS: CEFTRIAXONE SOD 1 GM/NS 50 ML 50 ML IV SCH ×2 (08:30→20:37)
[2018-07-09] MEDS: SOTALOL HCL 80 MG TAB PO SCH (09:00)
[2018-07-09] MEDS: ATORVASTATIN 40 MG TAB PO SCH (09:00)
[2018-07-09] MEDS: RANOLAZINE 500 MG TABSR PO SCH ×2 (09:00→16:36)
[2018-07-09] MEDS: DICYCLOMINE HCL 20 MG TAB PO SCH ×2 (09:00→16:36)
[2018-07-09] MEDS: PANTOPRAZOLE SOD 40 MG TABEC PO SCH (09:00)
[2018-07-09] MEDS: APIXABAN 5 MG TABLET PO SCH (09:00)
[2018-07-09] MEDS: SITAGLIPTIN 100 MG TAB PO SCH (09:00)
[2018-07-09] MEDS: INSULIN GLARGINE 100 UNITS/ML VIAL SQ SCH ×2 (09:00→20:30)
[2018-07-09 11:05] LABS: LYMPHOCYTES % (MANUAL) 8 % (19-48); MONOCYTES % (MANUAL) 5 % (3.4-9.0); NEUTROPHILS % (MANUAL) 87 % (40-74)
[2018-07-09 11:07] LABS: RBC MORPHOLOGY COMMENT NORMAL
[2018-07-09 11:08] LABS: ANISOCYTOSIS SLIGHT
[2018-07-09 11:09] LABS: PLATELET ESTIMATE ADEQUATE; PLATELET MORPHOLOGY COMMENT NORMAL
--- NOTE | 2018-07-09 11:58 | NUR ---
CM to bedside to discuss MC patients rights. IMM discussed and signature obtained from patient. Patient verbalized understanding of discussion. Copy of IMM to chart and copy left in Transition in Care folder.
[2018-07-09] MEDS ORDERED: ONDANSETRON HCL 4 MG ORAL DISINTEGRATING TAB PO PRN (15:30)
--- NOTE | 2018-07-09 17:00 | NUR ---
DR MORAES CAME TO SEE THE PATIENT NO NEW ORDERS NOTIFIED
--- NOTE | 2018-07-09 18:38 | NUR ---
PT RESTING ON BED BED SIDE REPORT GIVEN TO ONCOMING NURSE
[2018-07-09] MEDS: ZOLPIDEM TARTRATE 10 MG TAB PO SCH (20:37)
[2018-07-09] MEDS: OLMESARTAN 20 MG TAB PO SCH (20:38)
[2018-07-09] MEDS: ALPRAZOLAM 0.5 MG TAB PO SCH (20:38)
[2018-07-10] VITALS (9 sets, daily range): BP systolic 119–142; BP diastolic 62–89
[2018-07-10] MEDS: ALBUTEROL/IPRATROPIUM 3 ML NEB NEB SCH ×6 (01:00→23:35)
[2018-07-10] MEDS: METHYLPREDNISOLONE SOD SUCC 40 MG/ML VIAL 1ML IV SCH ×3 (01:15→17:30)
--- NOTE | 2018-07-10 02:15 | Consultation ---
DATE OF CONSULTATION: HISTORY OF PRESENT ILLNESS: The patient is a 73-year-old gentleman. The patient is well known to me from office visits. He came to hospital with cough, congestion, some shortness of breath, and wheezing. The patient was followed by me in the office and has underlying history of sleep apnea though he has hard time tolerating CPAP. He also has some history of asthma/COPD, even though he is a nonsmoker and smoked for a very little time. 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 The patient was seen by Dr. Lenz and referred to the emergency room because he had worsening shortness of breath with wheezing and his overall declining status. The patient was admitted to the hospital with the diagnosis of asthma/COPD with exacerbation. He had cough, wheezing, congestion, and this happened prior to any environmental factors. The patient was admitted to the hospital and treated and he is improving. He has not had a whole lot of sputum production, but states that he started to bring up some green sputum now. The patient's past medical history is as above. The patient has history of COPD. The patient has wheezing, cough, and congestion. He has been treated with some oral steroids by Dr. Lenz without much improvement. The patient remained on IV steroids and breathing treatments and has improvement. His sugars have gotten a little bit out of control. PAST MEDICAL HISTORY: Significant for: 1. Diabetes mellitus. 2. Morbid obesity. 3. Hypertension. 4. COPD. 5. Pulmonary nodules, which have been stable on previous CT scan, last being in February. 6. Paroxysmal atrial fibrillation with ablation. 7. Mild congestive heart failure. 8. Coronary artery disease with mitral valve prolapse. 9. History of anxiety. 10. History of obstructive sleep apnea. 11. History of some kind of TIA or brain hemorrhage. 12. Anemia. 13. Dyslipidemia. PAST SURGICAL HISTORY: He has had varicose vein surgeries and the patient has had cataract surgery, coronary stents, history of right shoulder surgery, left elbow surgery, history of partial colon resection, multiple cardiac catheterizations, AV jimbo ablation for atrial fibrillation, and cholecystectomy. SOCIAL HISTORY: The patient is a nonsmoker. At this time, he has smoked for no more than 5 years or so. ALLERGIES: HE IS ALLERGIC TO TRAMADOL, LEVAQUIN, ACETAMINOPHEN, PROPOXYPHENE, NORCO, CODEINE, AND MORPHINE. MEDICATIONS: The patient's medications at this time include: 1. Solu-Medrol 40 q.8h. 2. Glipizide. 3. Famotidine. 4. Insulin. 5. Albuterol. 6. Apixaban. 7. Atorvastatin. 8. Sotalol. 9. Januvia. 10. Protonix. 11. Insulin glargine. 12. Ceftriaxone. 13. Benicar. 14. Xanax. 15. Ambien. 16. Ibuprofen. 17. Zofran p.r.n. 18. Clonidine p.r.n. 19. Enalapril p.r.n. 20. Benadryl p.r.n. 21. Dextrose p.r.n. REVIEW OF SYSTEMS: NEUROLOGIC: He denies passing out or seizures. CARDIAC: No chest pain. PULMONARY: He has mild wheezing, cough, and shortness of breath. GI: No bleeding per rectum. : No dysuria or hematuria. SKIN: No rash. PHYSICAL EXAMINATION: GENERAL: On examination, he was alert and awake. VITAL SIGNS: He was afebrile. Pulse 70, respirations 20, he was on room air, and blood pressure 125/73. HEENT: Atraumatic and normocephalic. NECK: Supple. CHEST: Minimal wheezing. HEART: Heart sounds are normal. ABDOMEN: Soft. EXTREMITIES: Showed no cyanosis, clubbing, or edema. LABORATORY DATA: Showed electrolytes with a white count of 14.8, hemoglobin 15.4, and platelet count of 207. The patient has some degree of a left shift with neutrophil count of 87%. RADIOGRAPHIC DATA: Chest x-ray showed no acute infiltrates. The patient had mild anterior wedge compression deformity of the ventral body of the thorax, otherwise unremarkable. IMPRESSION: The patient has had cough and congestion, but overall he seems to be improving. He is finally coughing up some sputum. So far, he has not had any new changes and from my standpoint he continues to improve from what I can gather. The patient remains on room air. He has mild wheezing, and I think he can be weaned to oral steroids and oral antibiotics and will be discharged to home with followup as an outpatient. I have told the patient that this may be related to weather change, asthma, allergies, and some other nonspecific changes with wheezing and exacerbation, but overall x-ray looks okay. He has had a recent CT scan in the last 3 months, which was unremarkable, and he is a nonsmoker and does not have hemoptysis or other concerns as far as the lung is concerned. He remains on apixaban and hence I think it is covered for any possibility of deep vein thrombosis and I am in agreement as long as he feels well enough to be discharged, especially in the next day or so on oral steroids, oral antibiotics, and weaning steroid back and just another additional few days of oral antibiotics. Treatment remains supportive. I discussed the plan of care with him and his . Thank you Dr. Calero for asking me to see Dylan Dueñas. MD NICOLE Perez/DEVAN /[id number]
[2018-07-10] MEDS: FAMOTIDINE 20 MG TAB PO SCH ×2 (08:35→17:30)
[2018-07-10] MEDS: GLIPIZIDE 5 MG TAB PO SCH ×2 (08:35→17:30)
[2018-07-10] MEDS: CEFTRIAXONE SOD 1 GM/NS 50 ML 50 ML IV SCH ×2 (08:35→20:12)
[2018-07-10] MEDS: INSULIN REGULAR, HUMAN 100 UNIT/1 ML 3ML VIAL SQ SCH ×4 (08:35→21:00)
[2018-07-10] MEDS: INSULIN GLARGINE 100 UNITS/ML VIAL SQ SCH ×2 (08:35→21:00)
[2018-07-10] MEDS: APIXABAN 5 MG TABLET PO SCH (08:36)
[2018-07-10] MEDS: PANTOPRAZOLE SOD 40 MG TABEC PO SCH (08:36)
[2018-07-10] MEDS: SITAGLIPTIN 100 MG TAB PO SCH (08:36)
[2018-07-10] MEDS: DICYCLOMINE HCL 20 MG TAB PO SCH ×2 (08:36→17:30)
[2018-07-10] MEDS: ATORVASTATIN 40 MG TAB PO SCH (08:36)
[2018-07-10] MEDS: RANOLAZINE 500 MG TABSR PO SCH ×2 (08:38→17:31)
[2018-07-10] MEDS: SOTALOL HCL 80 MG TAB PO SCH (08:38)
[2018-07-10] MEDS: ZOLPIDEM TARTRATE 10 MG TAB PO SCH (20:12)
[2018-07-10] MEDS: ALPRAZOLAM 0.5 MG TAB PO SCH (20:12)
[2018-07-10] MEDS: OLMESARTAN 20 MG TAB PO SCH (20:12)
[2018-07-11] VITALS: BP 134/84
[2018-07-11] MEDS: METHYLPREDNISOLONE SOD SUCC 40 MG/ML VIAL 1ML IV SCH ×2 (03:07→08:02)
[2018-07-11] MEDS: ALBUTEROL/IPRATROPIUM 3 ML NEB NEB SCH ×3 (04:00→11:45)
[2018-07-11 04:15] VITALS: BP 133/86
[2018-07-11 07:04] LABS: BASOPHILS % 0.2 % (0.0-1.0); EOSINOPHILS # (AUTO) 0.1 (0.0-0.4); EOSINOPHILS % 0.5 % (0.0-6.0); HEMATOCRIT 44.9 % (38.2-49.6); HEMOGLOBIN 15.3 g/dL (14.0-18.0); LYMPHOCYTES # (AUTO) 1.3 (1.0-3.2); LYMPHOCYTES % 8.5 % (18.0-39.1); MEAN CORPUSCULAR HEMOGLOBIN 29.3 pg (28-32); MEAN CORPUSCULAR HGB CONC 34.1 g/dL (31-35); MONOCYTES # (AUTO) 0.8 (0.2-0.8); MONOCYTES % 5.6 % (4.4-11.3); NEUTROPHILS # (AUTO) 12.2 (2.1-6.9); NEUTROPHILS % 83.3 % (38.7-80.0); PLATELET COUNT 215 x10e3/uL (140-360); RED BLOOD COUNT 5.22 x10e6/uL (4.3-5.7); RED CELL DISTRIBUTION WIDTH 12.4 % (11.7-14.4)
[2018-07-11 07:23] LABS: ANION GAP 11.2 mmol/L (8-16); CALCIUM 8.6 mg/dL (8.4-10.2); CREATININE, SERUM 1.22 mg/dL (0.72-1.25); POTASSIUM 4.2 mmol/L (3.5-5.1)
[2018-07-11] MEDS: INSULIN GLARGINE 100 UNITS/ML VIAL SQ SCH (08:01)
[2018-07-11] MEDS: GLIPIZIDE 5 MG TAB PO SCH (08:02)
[2018-07-11] MEDS: FAMOTIDINE 20 MG TAB PO SCH (08:02)
[2018-07-11] MEDS: INSULIN REGULAR, HUMAN 100 UNIT/1 ML 3ML VIAL SQ SCH ×2 (08:02→12:34)
[2018-07-11] MEDS: APIXABAN 5 MG TABLET PO SCH (08:02)
[2018-07-11] MEDS: DICYCLOMINE HCL 20 MG TAB PO SCH (08:02)
[2018-07-11] MEDS: ATORVASTATIN 40 MG TAB PO SCH (08:03)
[2018-07-11] MEDS: PANTOPRAZOLE SOD 40 MG TABEC PO SCH (08:03)
[2018-07-11] MEDS: SITAGLIPTIN 100 MG TAB PO SCH (08:03)
[2018-07-11] MEDS: CEFTRIAXONE SOD 1 GM/NS 50 ML 50 ML IV SCH (08:09)
[2018-07-11] MEDS: RANOLAZINE 500 MG TABSR PO SCH (08:15)
[2018-07-11] MEDS: SOTALOL HCL 80 MG TAB PO SCH (08:15)
[2018-07-11 08:26] VITALS: BP 141/92
[2018-07-11 11:00] VITALS: BP 141/92
[2018-07-11 13:02] VITALS: BP 127/78
[2018-07-11] MEDS ORDERED: DOXYCYCLINE HY100 MG PO (13:13)
[2018-07-11] MEDS ORDERED: LANTUS 3ML100 UNITS/ SC (13:15)
[2018-07-11] MEDS ORDERED: PREDNISONE10 MG PO (13:18)
[2018-07-11] MEDS ORDERED: MUCINEX DM ER1 EACH PO (13:18)
[2018-07-11] MEDS ORDERED: CLARITIN-D 241 EACH PO (13:19)
--- NOTE | 2018-07-11 18:43 | Discharge Summary ---
PRIMARY CARE PHYSICIAN: Dr. Bunny Lenz. THREAD CLIPPER: Dr. Jt Dixon. FINAL DIAGNOSES: 1. Acute exacerbation of chronic obstructive pulmonary disease associated with acute bronchitis, failed outpatient treatment. 2. Uncontrolled diabetes, glycohemoglobin A1c of 9.7. 3. Baseline multiple chronic medical problems including history of pulmonary nodule on routine followup, chronic obstructive pulmonary disease, history of atrial fibrillation with ablation, mitral valve prolapse, coronary artery disease with stent, obstructive sleep apnea, obesity. SUMMARY: The patient is a pleasant 73-year-old male, trying to treat outpatient with multiple treatments with Dr. Bunny Lenz, but the patient did not get better for the past month or so. He with recurrent wheezing, coarses of the lung, came to the hospital. Chest x-ray did not reveal any lesion or mass. The patient had routine followup with Dr. Dixon on CT of the chest. Recent CT scan within the past few months. The patient does have COPD with now acute exacerbation of COPD with acute bronchitis. He failed outpatient treatment. He did not receive steroids, however. He does have hyperglycemia due to steroid treatment, but baseline diabetes on oral hypoglycemic medication. Glycohemoglobin A1c is 9.7, however. The patient was placed on steroids, IV antibiotics, and supportive measure with multiple nebs treatments. The patient is doing much better now. He is stable. He will go home today, follow up with Dr. Dixon as an outpatient and Dr. Lenz as well for followup. DISCHARGE MEDICATION: Lantus SoloStar 25 units twice a day, prednisone 20 mg daily for two days then 10 mg daily a total of nine days, Mucinex 600 mg twice a day for 15 days, and Claritin 10 mg daily. The patient completed the course of his antibiotics. He will be discharged home with doxycycline 100 mg twice a day for seven days. The patient is otherwise stable, discharged home, follow up with Dr. Lenz and Dr. Dixon as planned. MD JESSICA Pritchett/MODL /[id number]
== END 2018-07-11 14:03 | disposition home or self-care (01) | DRG 190 ==
LOC: FSED 17:35 → ERHOLD 19:26 → MED/SURG2 22:06
PROVIDERS: ADMIT Internal Medicine; ATTEND Internal Medicine
DX: J44.1 Chronic obstructive pulmonary disease with (acute) exacerbation (principal); J18.9 Pneumonia, unspecified organism; J44.0 Chronic obstructive pulmonary disease with (acute) lower respiratory infection; J20.9 Acute bronchitis, unspecified; E11.65 Type 2 diabetes mellitus with hyperglycemia; I25.10 Atherosclerotic heart disease of native coronary artery without angina pectoris; Z95.5 Presence of coronary angioplasty implant and graft; G47.33 Obstructive sleep apnea (adult) (pediatric); Z68.35 Body mass index [BMI] 35.0-35.9, adult; I48.0 Paroxysmal atrial fibrillation; Z79.01 Long term (current) use of anticoagulants; Z86.73 Personal history of transient ischemic attack (TIA), and cerebral infarction without residual deficits; I45.9 Conduction disorder, unspecified; F41.9 Anxiety disorder, unspecified; F32.9 Major depressive disorder, single episode, unspecified; T38.3X5A Adverse effect of insulin and oral hypoglycemic [antidiabetic] drugs, initial encounter; R09.02 Hypoxemia; R91.8 Other nonspecific abnormal finding of lung field
CPT/HCPCS: 36415; 71046; 80048; 82948; 83036; 84443; 85025; 94640; 99284; J0696; J1815; J2920; J2930; J7121

== ENCOUNTER 2019-02-11 15:02 | Inpatient (IN) | payer MEDICARE, BC ==
[~2019-02-11] VITALS: Ht 177.8 cm; Wt 106.4 kg
[~2019-02-11 15:02] MED LIST changes: +BENICAR20 MG PO; +BENTYL10 MG/1 ML PO; +CLARITIN-D 241 EACH PO; +DICYCLOMINE HCL20 MG PO; +DOXYCYCLINE HY100 MG PO; +DYCLONINE HCL5 GM PO; +JANUVIA100 MG PO; +LANTUS 3ML100 UNITS/ SC; +MUCINEX DM ER1 EACH PO; +PREDNISONE10 MG PO; +SOTALOL80 MG PO
[2019-02-11] MEDS ORDERED: CEFTRIAXONE SOD 1 GM VIAL IV SCH (16:00)
[2019-02-11] MEDS ORDERED: ENALAPRILAT IV INJ 1.25 MG/ML VIAL IV PRN (16:00)
[2019-02-11] MEDS ORDERED: IBUPROFEN 600 MG TAB PO PRN (16:00)
[2019-02-11] MEDS ORDERED: CLONIDINE HCL 0.2 MG TAB PO PRN (16:00)
[2019-02-11] MEDS ORDERED: AZITHROMYCIN 500MG/SOD CHL 0.9% 250ML BAG IV SCH (16:00)
[2019-02-11] MEDS ORDERED: ONDANSETRON HCL INJ 2MG/ML 2ML 2 MG/ML VIAL IV PRN (16:00)
[2019-02-11] MEDS ORDERED: DEXTROSE 50% SYRINGE 50 ML IV PRN (16:00)
--- NOTE | 2019-02-11 16:11 | Diagnostic Imaging Report ---
EXAMINATION: CXR 1 VEW - HOPD INDICATION: Cough COMPARISON: None FINDINGS: LINES/TUBES:None LUNGS:The lungs are well-inflated. No focal consolidation or pulmonary edema. PLEURA:No pleural effusion or pneumothorax. MEDIASTINUM:The cardiomediastinal silhouette appears normal in size and shape. BONES/SOFT TISSUES:No acute osseous injury. ABDOMEN:No free air under the diaphragm. IMPRESSION: No focal pneumonia or pulmonary edema. Signed by: Nuno Perez MD on 02/11/2019 4:08 PM
[2019-02-11] MEDS ORDERED: METHYLPREDNISOLONE SOD SUCC 125 MG/2ML VIAL ONE (16:32)
[2019-02-11] MEDS ORDERED: FAMOTIDINE 20 MG TAB ONE (16:32)
[2019-02-11] MEDS ORDERED: INSULIN REGULAR, HUMAN 100 UNIT/1 ML 3ML VIAL ONE (16:33)
[2019-02-11] MEDS ORDERED: CEFTRIAXONE SOD 1 GM/NS 50 ML 50 ML IV ONE (16:33)
[2019-02-11] MEDS ORDERED: ALBUTEROL/IPRATROPIUM 3 ML NEB ONE (16:33)
[2019-02-11] MEDS ORDERED: AZITHROMYCIN 500MG/NS 250 ML 250 ML ONE (16:33)
[2019-02-11] MEDS: CEFTRIAXONE SOD 1 GM/NS 50 ML 50 ML IV SCH (16:35)
[2019-02-11] MEDS: FAMOTIDINE 20 MG TAB PO SCH (16:35)
[2019-02-11] MEDS: INSULIN REGULAR, HUMAN 100 UNIT/1 ML 3ML VIAL SQ SCH ×2 (16:37→21:00)
[2019-02-11] MEDS: METHYLPREDNISOLONE SOD SUCC 125 MG/2ML VIAL IV SCH ×2 (16:40→22:00)
[2019-02-11] MEDS ORDERED: SODIUM CHLORIDE 0.9% 1000ML 1,000 ML IV ONE (16:45)
[2019-02-11] MEDS: ALBUTEROL/IPRATROPIUM 3 ML NEB NEB SCH (16:50)
[2019-02-11] MEDS: AZITHROMYCIN 500MG/NS 250 ML 250 ML IV SCH (16:50)
[2019-02-11] MEDS: ENOXAPARIN SOD INJ 40 MG/0.4 ML SYR SC SCH (16:57)
[2019-02-11] MEDS ORDERED: SODIUM CHLORIDE 0.9% 1000ML 1,000 ML ONE (16:59)
[2019-02-11] MEDS ORDERED: VASEPA (17:44)
[2019-02-11] MEDS ORDERED: MINOXIDIL2.5 MG PO (17:44)
[2019-02-11] MEDS ORDERED: NOVOLIN 70100 UNIT/3 (17:44)
[2019-02-11] MEDS ORDERED: ALBUTEROL0.63 MG/3 (17:44)
--- NOTE | 2019-02-11 17:45 | NUR ---
Pt's BGL is 76, pt feels lightheaded, pt given some pudding and ileana dave to drink to keep sugars up. Pt states that his blood sugar can be 50 and he usally does not feel it.
--- NOTE | 2019-02-11 18:06 | NUR ---
pt has some itching on his arm above the IV site where Azithromycin was infusing, no redness noted on skin.
--- NOTE | 2019-02-11 18:22 | NUR ---
Called [facility] to transport pt to room 208
--- NOTE | 2019-02-11 18:32 | NUR ---
Report given to MAXIMINO Piedra
--- NOTE | 2019-02-11 19:47 | NUR ---
vs at depart time, 98.2, 96% 127/79 hr 65
[2019-02-11 20:00] VITALS: BP 143/80
--- NOTE | 2019-02-11 20:00 | NUR ---
Patient received via stretcher from [facility] accompanied by . Patient is AAO x 4. Patient had no complaints of pain. Respirations even and non-labored. Admission history obtained. Initial physical assessment performed. Patient oriented to room, call light and plan of care. Fall precautions implemented. Patient instructed to call for assistance when needed. Call light within reach.
[2019-02-11 20:30] VITALS: BP 143/80
--- NOTE | 2019-02-11 21:12 | NUR ---
Blood specimen sent to lab for analysis of cardiac enzymes.
[2019-02-11 21:38] LABS: CREATINE KINASE MB 2.7 ng/mL (0-5.0)
[2019-02-11] MEDS: ZOLPIDEM TARTRATE 5 MG TAB PO PRN (23:06)
[2019-02-12] VITALS (7 sets, daily range): BP systolic 122–143; BP diastolic 57–71
[2019-02-12 05:23] LABS: BASOPHILS % 0.1 % (0.0-1.0); HEMATOCRIT 45.3 % (38.2-49.6); HEMOGLOBIN 15.2 g/dL (14.0-18.0); LYMPHOCYTES # (AUTO) 1.5 (1.0-3.2); LYMPHOCYTES % 13.4 % (18.0-39.1); MEAN CORPUSCULAR HEMOGLOBIN 29.4 pg (28-32); MEAN CORPUSCULAR HGB CONC 33.6 g/dL (31-35); MEAN CORPUSCULAR VOLUME 87.6 fL (81-99); MONOCYTES # (AUTO) 0.1 (0.2-0.8); MONOCYTES % 1.1 % (4.4-11.3); NEUTROPHILS # (AUTO) 9.4 (2.1-6.9); NEUTROPHILS % 84.7 % (38.7-80.0); PLATELET COUNT 210 x10e3/uL (140-360); RED BLOOD COUNT 5.17 x10e6/uL (4.3-5.7); RED CELL DISTRIBUTION WIDTH 12.7 % (11.7-14.4)
[2019-02-12] MEDS: METHYLPREDNISOLONE SOD SUCC 125 MG/2ML VIAL IV SCH ×2 (05:42→17:03)
[2019-02-12 05:50] LABS: ANION GAP 14.1 mmol/L (8-16); BLOOD UREA NITROGEN 22 mg/dL (7-26); BUN/CREATININE RATIO 21 (6-25); CALCIUM 8.6 mg/dL (8.4-10.2); CARBON DIOXIDE 21 mmol/L (22-29); CHLORIDE 105 mmol/L (98-107); CREATININE, SERUM 1.07 mg/dL (0.72-1.25); EST GLOMERULAR FILTRATION RATE > 60 ML/MIN (60-); GLUCOSE 173 mg/dL (74-118); POTASSIUM 4.1 mmol/L (3.5-5.1); SODIUM 136 mmol/L (136-145)
[2019-02-12 06:21] LABS: CREATINE KINASE MB 2.6 ng/mL (0-5.0)
[2019-02-12] MEDS: ALBUTEROL/IPRATROPIUM 3 ML NEB NEB SCH ×5 (06:55→23:41)
--- NOTE | 2019-02-12 07:00 | NUR ---
Shift report given to oncoming nurse.
--- NOTE | 2019-02-12 07:06 | NUR ---
pt alert resp even and unlabored at this time, no distress noted, call light in reach will cont to monitor.
[2019-02-12] MEDS: FAMOTIDINE 20 MG TAB PO SCH ×2 (07:30→17:00)
[2019-02-12] MEDS: INSULIN REGULAR, HUMAN 100 UNIT/1 ML 3ML VIAL SQ SCH ×4 (10:00→21:00)
[2019-02-12] MEDS ORDERED: INSULIN GLARGINE 100 UNITS/ML VIAL SQ ONE (12:30)
[2019-02-12] MEDS: APIXABAN 5 MG TABLET PO SCH (13:00)
[2019-02-12 13:50] LABS: CREATINE KINASE MB 2.1 ng/mL (0-5.0)
[2019-02-12] MEDS: PANTOPRAZOLE SOD 40 MG TABEC PO SCH (13:57)
[2019-02-12] MEDS ORDERED: METHYLPREDNISOLONE SOD SUCC 125 MG/2ML VIAL IV SCH (14:00)
[2019-02-12] MEDS: AZITHROMYCIN 500MG/NS 250 ML 250 ML IV SCH (17:01)
[2019-02-12] MEDS: DICYCLOMINE HCL 10 MG CAP PO SCH (17:02)
[2019-02-12] MEDS: CEFTRIAXONE SOD 1 GM/NS 50 ML 50 ML IV SCH (17:02)
[2019-02-12] MEDS: ENOXAPARIN SOD INJ 40 MG/0.4 ML SYR SC SCH (17:03)
[2019-02-12] MEDS: OMEGA 3 POLYUNSAT FATTY ACIDS 1000 MG SOFTGEL PO SCH (17:04)
[2019-02-12] MEDS: MINOXIDIL 2.5 MG TAB PO SCH (17:14)
[2019-02-12] MEDS: RANOLAZINE 500 MG TABSR PO SCH (17:15)
[2019-02-12] MEDS: FLUTICASONE PROPIONATE NASAL SPRAY NS SCH (17:49)
--- NOTE | 2019-02-12 19:41 | NUR ---
report given to oncoming nurse . pt stable at shift change.
--- NOTE | 2019-02-12 19:42 | NUR ---
Patient received sitting up in bed. at bedside. AAO x 4. No acute distress noted. Call light within reach.
[2019-02-12] MEDS: INSULIN GLARGINE 100 UNITS/ML VIAL SC SCH (21:00)
[2019-02-12] MEDS: ATORVASTATIN 40 MG TAB PO SCH (21:26)
[2019-02-12] MEDS: OLMESARTAN 20 MG TAB PO SCH (21:26)
[2019-02-12] MEDS: ALPRAZOLAM 1 MG TAB PO SCH (21:26)
--- NOTE | 2019-02-12 23:46 | Consultation ---
DATE OF CONSULTATION: Pulmonary Consultation. HISTORY OF PRESENT ILLNESS: This is a patient of Dr. Calero, Dr. Lenz, Dr. Dixon. Charming 73-year-old gentleman admitted with cough, shortness of breath and wheezing. Claims that oral antibiotics are ineffective. He has a history suggestive of asthma, claims to be well in between episodes of respiratory difficulty and wheezing. 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 History of diabetes, hypertension, paroxysmal atrial fibrillation status post ablation, coronary artery disease with mitral valve prolapse. Obstructive sleep apnea, unable to tolerate CPAP. PAST SURGICAL HISTORY: He has had multiple operations including varicose vein surgery, cataract surgery, coronary stents, shoulder surgery, elbow surgery, partial colon resection, AV node ablation, cholecystectomy, repair of ankle fracture and tendon repair. SOCIAL HISTORY: The patient smoked a pack a day for approximately five years. Worked in chemical plants, exposed to [employer] [place] and also in the [employer] where he is exposed to chlorine gas, but no history of severe exposure. Born in , [place]. ALLERGIES: TRAMADOL, LEVAQUIN, PROPOXYPHENE, NORCO, CODEINE, MORPHINE. MEDICATIONS: Include insulin, albuterol, zolpidem, Xanax, Lipitor, dicyclomine, Flonase, insulin, Claritin-D, minoxidil, Benicar, omeprazole, Ranexa, sitagliptin, sotalol, Eliquis, and Vascepa assuming for hyponatremia. PHYSICAL EXAMINATION: GENERAL: A well-developed moderately obese white male anxious, but no acute distress. CHEST: Few wheezes bilaterally. HEART: Regular rhythm. ABDOMEN: Nontender. EXTREMITIES: Nonedematous. LABORATORY DATA: Sodium is 136, hemoglobin is 15.2. No evidence of . IMPRESSION: Acute bronchitis with wheezing, presumed bronchial asthma. PLAN: Moderate dose steroids. Adjust insulin as needed. Empiric antibiotics. Continue the patient's home medications and bronchodilators. Monitor the Claritin-D as he is apparently has hypertension and coronary artery disease. He is on minoxidil. Apparently, he has had extensive outpatient evaluation with Dr. Dixon in the recent past. Thank you for this kind referral. MD MARGRET Ceja/DEVAN /[id number]
[2019-02-13] VITALS (8 sets, daily range): BP systolic 119–146; BP diastolic 60–77
[2019-02-13] MEDS: ALBUTEROL/IPRATROPIUM 3 ML NEB NEB SCH ×5 (07:05→23:10)
[2019-02-13] MEDS: PANTOPRAZOLE SOD 40 MG TABEC PO SCH (07:30)
[2019-02-13] MEDS: INSULIN REGULAR, HUMAN 100 UNIT/1 ML 3ML VIAL SQ SCH ×4 (07:30→21:00)
[2019-02-13] MEDS: FAMOTIDINE 20 MG TAB PO SCH ×2 (07:30→17:03)
--- NOTE | 2019-02-13 08:17 | Diagnostic Imaging Report ---
EXAM: CT Chest WITHOUT contrast 02/12/2019 12:05 PM INDICATION: ^SOB/COUGH ^[id number] ^1400 COMPARISON: Chest radiograph 02/11/[address] chest 07/27/2017 TECHNIQUE: Chest was scanned utilizing a multidetector helical scanner from the lung apex through the level of the adrenal glands without administration of IV contrast. Absence of intravenous contrast decreases sensitivity for detection of lymphadenopathy and vascular pathology. Coronal and sagittal reformations were obtained. Routine protocol was performed. IV CONTRAST: None COMPLICATIONS: None RADIATION DOSE: Total DLP: 578.4 mGy*cm Estimated effective dose: (DLP x 0.015 x size factor) mSv CTDIvol has been reviewed. It is below the limits set by the Radiation Protocol Committee (RPC). FINDINGS: LINES/ TUBES: None. LUNGS AND AIRWAYS: Mild bilateral lower lobe predominant interstitial edema. Minimal atelectasis in both lung bases. Few tiny scattered calcified granulomas, bilaterally. No consolidations or peribronchial wall thickening. No bronchiectasis. No honeycombing. Airways are normal. PLEURA: The pleural spaces are clear. HEART AND MEDIASTINUM: The thyroid gland is normal. No mediastinal, hilar or axillary lymphadenopathy. Mild biatrial enlargement. There is no pericardial effusion. Mild to moderate coronary artery calcification with a stent in the LAD. The thoracic aorta are normal in size and associated with mild scattered atherosclerotic calcifications. Mild calcifications of the aortic valve. UPPER ABDOMEN: Cholecystectomy. BONES: The visualized bony thorax is within normal limits. SOFT TISSUES: Unremarkable. IMPRESSION: Minimal bilateral interstitial edema and subsegmental atelectasis in both lung bases. Otherwise, lungs are clear. Coronary artery calcifications. Signed by: Dr. Bridgette Nicolas M.D. on 02/13/2019 8:14 AM
[2019-02-13] MEDS: INSULIN GLARGINE 100 UNITS/ML VIAL SC SCH ×2 (09:00→21:00)
[2019-02-13] MEDS: MINOXIDIL 2.5 MG TAB PO SCH ×2 (09:00→17:39)
[2019-02-13] MEDS: METHYLPREDNISOLONE SOD SUCC 125 MG/2ML VIAL IV SCH ×2 (09:35→17:03)
[2019-02-13] MEDS: LORATADINE/PSEUDOEPHEDRINE 24 HR SR TAB PO SCH (09:35)
[2019-02-13] MEDS: DICYCLOMINE HCL 10 MG CAP PO SCH ×2 (09:35→17:37)
[2019-02-13] MEDS: APIXABAN 5 MG TABLET PO SCH (09:36)
[2019-02-13] MEDS: SITAGLIPTIN 100 MG TAB PO SCH (10:08)
[2019-02-13] MEDS: OMEGA 3 POLYUNSAT FATTY ACIDS 1000 MG SOFTGEL PO SCH ×2 (10:08→17:37)
[2019-02-13] MEDS: RANOLAZINE 500 MG TABSR PO SCH ×2 (10:08→17:37)
[2019-02-13] MEDS: SOTALOL HCL 80 MG TAB PO SCH (10:08)
[2019-02-13] MEDS: FLUTICASONE PROPIONATE NASAL SPRAY NS SCH ×2 (10:09→17:37)
[2019-02-13] MEDS: CEFTRIAXONE SOD 1 GM/NS 50 ML 50 ML IV SCH (17:03)
[2019-02-13] MEDS: AZITHROMYCIN 500MG/NS 250 ML 250 ML IV SCH (17:03)
[2019-02-13] MEDS: ENOXAPARIN SOD INJ 40 MG/0.4 ML SYR SC SCH (17:37)
--- NOTE | 2019-02-13 19:42 | NUR ---
Patient received sitting up in bed. AAO x 4. Patient had no complaints of pain. Respirations even and non-labored. Patient instructed to call for assistance when needed. Call light within reach.
[2019-02-13] MEDS: DIPHENHYDRAMINE HCL INJ 50 MG/ML VIAL IV PRN (20:12)
--- NOTE | 2019-02-13 20:15 | NUR ---
Report given to oncoming nurse, pt stable at this time.
[2019-02-13] MEDS: ATORVASTATIN 40 MG TAB PO SCH (21:35)
[2019-02-13] MEDS: ALPRAZOLAM 1 MG TAB PO SCH (21:35)
[2019-02-13] MEDS: OLMESARTAN 20 MG TAB PO SCH (21:42)
[2019-02-14] VITALS (8 sets, daily range): BP systolic 111–165; BP diastolic 61–79
--- NOTE | 2019-02-14 05:00 | NUR ---
Sputum specimen sent to lab for analysis.
[2019-02-14] MEDS: ALBUTEROL/IPRATROPIUM 3 ML NEB NEB SCH ×5 (06:49→22:00)
--- NOTE | 2019-02-14 07:00 | NUR ---
BEDSIDE SHIFT REPORT RECEIVED FROM LABOR TRAINER RN. PT DENIES NEEDS AT THIS TIME.
--- NOTE | 2019-02-14 07:00 | NUR ---
Patient resting comfortably. Walking rounds done. Shift report given to oncoming nurse.
[2019-02-14] MEDS: INSULIN REGULAR, HUMAN 100 UNIT/1 ML 3ML VIAL SQ SCH ×4 (07:30→21:00)
[2019-02-14] MEDS: INSULIN GLARGINE 100 UNITS/ML VIAL SC SCH ×2 (09:00→21:00)
[2019-02-14] MEDS: METHYLPREDNISOLONE SOD SUCC 125 MG/2ML VIAL IV SCH (09:25)
[2019-02-14] MEDS: FAMOTIDINE 20 MG TAB PO SCH ×2 (09:25→17:25)
[2019-02-14] MEDS: PANTOPRAZOLE SOD 40 MG TABEC PO SCH (09:25)
[2019-02-14] MEDS: SOTALOL HCL 80 MG TAB PO SCH (09:26)
[2019-02-14] MEDS: DICYCLOMINE HCL 10 MG CAP PO SCH ×2 (09:26→17:27)
[2019-02-14] MEDS: MINOXIDIL 2.5 MG TAB PO SCH ×2 (09:26→17:27)
[2019-02-14] MEDS: LORATADINE/PSEUDOEPHEDRINE 24 HR SR TAB PO SCH (09:26)
[2019-02-14] MEDS: OMEGA 3 POLYUNSAT FATTY ACIDS 1000 MG SOFTGEL PO SCH ×2 (09:26→17:27)
[2019-02-14] MEDS: APIXABAN 5 MG TABLET PO SCH (09:26)
[2019-02-14] MEDS: SITAGLIPTIN 100 MG TAB PO SCH (09:26)
[2019-02-14] MEDS: FLUTICASONE PROPIONATE NASAL SPRAY NS SCH ×2 (09:26→17:27)
[2019-02-14] MEDS: RANOLAZINE 500 MG TABSR PO SCH ×2 (09:26→17:27)
[2019-02-14] MEDS ORDERED: BENZONATATE 100 MG CAP PO PRN (09:45)
[2019-02-14] MEDS ORDERED: GUAIFENESIN 200 MG/10 ML UDC PO PRN (09:45)
[2019-02-14] MEDS ORDERED: ONDANSETRON HCL 4 MG ORAL DISINTEGRATING TAB PO PRN (15:30)
[2019-02-14] MEDS: AZITHROMYCIN 500MG/NS 250 ML 250 ML IV SCH ×2 (17:24→17:27)
[2019-02-14] MEDS: ENOXAPARIN SOD INJ 40 MG/0.4 ML SYR SC SCH (17:27)
[2019-02-14] MEDS: CEFTRIAXONE SOD 1 GM/NS 50 ML 50 ML IV SCH (17:27)
[2019-02-14] MEDS: DIPHENHYDRAMINE HCL INJ 50 MG/ML VIAL IV PRN (18:12)
[2019-02-14] MEDS: OLMESARTAN 20 MG TAB PO SCH (21:08)
[2019-02-14] MEDS: ATORVASTATIN 40 MG TAB PO SCH (21:08)
[2019-02-14] MEDS: ALPRAZOLAM 1 MG TAB PO SCH (22:30)
[2019-02-14] MEDS: ZOLPIDEM TARTRATE 5 MG TAB PO PRN (22:31)
[2019-02-15] VITALS (8 sets, daily range): BP systolic 129–155; BP diastolic 69–81
--- NOTE | 2019-02-15 07:00 | NUR ---
BEDSIDE SHIFT REPORT RECEIVED FROM MASTER PLUMBER RN. PT DENIES NEEDS AT THIS TIME.
[2019-02-15] MEDS: ALBUTEROL/IPRATROPIUM 3 ML NEB NEB SCH ×5 (07:15→22:00)
[2019-02-15] MEDS: INSULIN REGULAR, HUMAN 100 UNIT/1 ML 3ML VIAL SQ SCH ×4 (07:30→21:00)
[2019-02-15] MEDS ORDERED: METHYLPREDNISOLONE SOD SUCC 40 MG/ML VIAL 1ML IV SCH (07:30)
[2019-02-15] MEDS ORDERED: METHYLPREDNISOLONE SOD SUCC 125 MG/2ML VIAL IV SCH (07:30)
[2019-02-15] MEDS: LORATADINE/PSEUDOEPHEDRINE 24 HR SR TAB PO SCH (08:24)
[2019-02-15] MEDS: PANTOPRAZOLE SOD 40 MG TABEC PO SCH (08:24)
[2019-02-15] MEDS: FAMOTIDINE 20 MG TAB PO SCH ×2 (08:24→17:20)
[2019-02-15] MEDS: MINOXIDIL 2.5 MG TAB PO SCH ×2 (08:24→17:20)
[2019-02-15] MEDS: SOTALOL HCL 80 MG TAB PO SCH (08:24)
[2019-02-15] MEDS: APIXABAN 5 MG TABLET PO SCH (08:24)
[2019-02-15] MEDS: OMEGA 3 POLYUNSAT FATTY ACIDS 1000 MG SOFTGEL PO SCH ×2 (08:24→17:20)
[2019-02-15] MEDS: FLUTICASONE PROPIONATE NASAL SPRAY NS SCH ×2 (08:24→17:20)
[2019-02-15] MEDS: DICYCLOMINE HCL 10 MG CAP PO SCH ×2 (08:24→17:20)
[2019-02-15] MEDS: SITAGLIPTIN 100 MG TAB PO SCH (08:24)
[2019-02-15] MEDS: RANOLAZINE 500 MG TABSR PO SCH ×2 (08:24→17:20)
[2019-02-15] MEDS: INSULIN GLARGINE 100 UNITS/ML VIAL SC SCH ×2 (08:25→21:00)
[2019-02-15] MEDS: ENOXAPARIN SOD INJ 40 MG/0.4 ML SYR SC SCH (17:20)
[2019-02-15] MEDS: AZITHROMYCIN 500MG/NS 250 ML 250 ML IV SCH (17:20)
[2019-02-15] MEDS: CEFTRIAXONE SOD 1 GM/NS 50 ML 50 ML IV SCH (17:20)
[2019-02-15] MEDS: DIPHENHYDRAMINE HCL INJ 50 MG/ML VIAL IV PRN (18:20)
--- NOTE | 2019-02-15 19:35 | NUR ---
Patient received sitting up in bed. AAO x 4. Patient had no complaints of pain. Respirations even and non-labored. Fall precautions implemented. Patient instructed to call for assistance when needed. Call light within reach.
[2019-02-15] MEDS: ALPRAZOLAM 1 MG TAB PO SCH (21:16)
[2019-02-15] MEDS: OLMESARTAN 20 MG TAB PO SCH (21:16)
[2019-02-15] MEDS: ATORVASTATIN 40 MG TAB PO SCH (21:16)
[2019-02-16 00:54] VITALS: BP 137/59
[2019-02-16 05:39] VITALS: BP_SYST 94
[2019-02-16] MEDS: ALBUTEROL/IPRATROPIUM 3 ML NEB NEB SCH ×2 (07:10→11:15)
--- NOTE | 2019-02-16 07:14 | NUR ---
Shift report given to oncoming nurse
[2019-02-16] MEDS: INSULIN REGULAR, HUMAN 100 UNIT/1 ML 3ML VIAL SQ SCH (07:30)
[2019-02-16] MEDS ORDERED: METHYLPREDNISOLONE SOD SUCC 40 MG/ML VIAL 1ML IV SCH (07:30)
[2019-02-16] MEDS: SOTALOL HCL 80 MG TAB PO SCH (08:05)
[2019-02-16] MEDS: MINOXIDIL 2.5 MG TAB PO SCH (08:05)
[2019-02-16] MEDS: FAMOTIDINE 20 MG TAB PO SCH (08:05)
[2019-02-16] MEDS: DICYCLOMINE HCL 10 MG CAP PO SCH (08:05)
[2019-02-16] MEDS: SITAGLIPTIN 100 MG TAB PO SCH (08:05)
[2019-02-16] MEDS: APIXABAN 5 MG TABLET PO SCH (08:05)
[2019-02-16] MEDS: PANTOPRAZOLE SOD 40 MG TABEC PO SCH (08:05)
[2019-02-16] MEDS: LORATADINE/PSEUDOEPHEDRINE 24 HR SR TAB PO SCH (08:05)
[2019-02-16] MEDS: FLUTICASONE PROPIONATE NASAL SPRAY NS SCH (08:05)
[2019-02-16] MEDS: OMEGA 3 POLYUNSAT FATTY ACIDS 1000 MG SOFTGEL PO SCH (08:15)
[2019-02-16] MEDS: RANOLAZINE 500 MG TABSR PO SCH (08:15)
[2019-02-16 08:45] VITALS: BP 134/76
[2019-02-16] MEDS: CEFTRIAXONE SOD 1 GM/NS 50 ML 50 ML IV SCH (09:20)
[2019-02-16] MEDS: AZITHROMYCIN 500MG/NS 250 ML 250 ML IV SCH (10:30)
--- NOTE | 2019-02-16 11:30 | NUR ---
IMM delivered and explained to pt. He verbalized understanding. Signed copy placed in chart. Copy to pt. Left CM business card for any questions/concerns.
[2019-02-16 11:56] VITALS: BP 134/77
--- NOTE | 2019-02-16 13:53 | NUR ---
OK per Dr. Calero to ms patient home and continue home medications.
--- NOTE | 2019-02-16 14:22 | NUR ---
Discharge instructions were give to the patient , he verbalized understanding. IV to the left wrist removed with tip intact.
--- NOTE | 2019-02-16 14:22 | NUR ---
Patient left the floor via wheelchair, he is discharged home.
== END 2019-02-16 14:29 | disposition home or self-care (01) | DRG 202 ==
LOC: FSED 15:02 → ERHOLD 16:04 → MED/SURG2 20:05
PROVIDERS: ADMIT Internal Medicine; ATTEND Internal Medicine
DX: J20.9 Acute bronchitis, unspecified (principal); J44.1 Chronic obstructive pulmonary disease with (acute) exacerbation; E11.9 Type 2 diabetes mellitus without complications; I10 Essential (primary) hypertension; R09.02 Hypoxemia
CPT/HCPCS: 36415; 71045; 71250; 80048; 80053; 82550; 82553; 82785; 82948; 83880; 84484; 85025; 87070; 87205; 94640; 96372; 96374; 99284; J0456; J0696; J1200; J1650; J1815; J1817; J2405; J2920; J2930; J7030

== ENCOUNTER → 2019-10-14 | Day surgery (SDC) | payer MEDICARE, BC, OTHER ==
--- NOTE | 2019-10-11 14:35 | Diagnostic Imaging Report ---
EXAMINATION: CHEST 2 VIEWS INDICATION: Pre-operative COMPARISON: None FINDINGS: LINES/TUBES:None LUNGS:The lungs are well-inflated. No focal consolidation or pulmonary edema. PLEURA:No pleural effusion or pneumothorax. MEDIASTINUM:The cardiomediastinal silhouette appears normal in size and shape. BONES/SOFT TISSUES:No acute osseous injury. ABDOMEN:No free air under the diaphragm. IMPRESSION: No focal pneumonia or pulmonary edema. Signed by: Nuno Perez MD on 10/11/2019 2:31 PM
[2019-10-11 15:10] LABS: BASOPHILS # (AUTO) 0.1 (0.0-0.1); BASOPHILS % 0.8 % (0.0-1.0); EOSINOPHILS # (AUTO) 0.2 (0.0-0.4); EOSINOPHILS % 3.1 % (0.0-6.0); HEMATOCRIT 49.6 % (38.2-49.6); HEMOGLOBIN 16.4 g/dL (14.0-18.0); LYMPHOCYTES # (AUTO) 2.1 (1.0-3.2); LYMPHOCYTES % 27.6 % (18.0-39.1); MEAN CORPUSCULAR HEMOGLOBIN 29.1 pg (28-32); MEAN CORPUSCULAR HGB CONC 33.1 g/dL (31-35); MEAN CORPUSCULAR VOLUME 87.9 fL (81-99); MONOCYTES # (AUTO) 0.8 (0.2-0.8); MONOCYTES % 10.2 % (4.4-11.3); NEUTROPHILS # (AUTO) 4.5 (2.1-6.9); PLATELET COUNT 166 x10e3/uL (140-360); RED BLOOD COUNT 5.64 x10e6/uL (4.3-5.7); RED CELL DISTRIBUTION WIDTH 12.7 % (11.7-14.4)
[2019-10-11 15:27] LABS: ANION GAP 14.7 mmol/L (8-16); CALCIUM 9.2 mg/dL (8.4-10.2); CREATININE, SERUM 1.31 mg/dL (0.72-1.25); POTASSIUM 4.7 mmol/L (3.5-5.1)
[~2019-10-14] MED LIST changes: +ALBUTEROL0.63 MG/3; +BUPIVACAINE HCL 0.5% INJ 30 ML VIAL INJ ONE; +BYSTOLIC10 MG PO; +CEFAZOLIN SOD 1 GM/NS 50ML 100 ML IV ONE; +CLONIDINE HCL0.1 MG PO; +DEXAMETHASONE SOD PHOS INJ 4 MG/ML VIAL ONE; +EPHEDRINE SULFATE INJ 50 MG/ML VIAL ONE; +FENTANYL CITRATE/PF 100MCG/2 ML INJ ONE; +HYDROMORPHONE 1MG/1ML INJ ONE; +KETOROLAC TROMETHAMINE 30 MG/ML VIAL ONE; +LIDOCAINE HCL 2% LOCAL INJ 5 ML SDV VIAL INJ ONE; +MINOXIDIL2.5 MG PO; +NEOSTIGMINE 1 MG/ML 10ML VIAL ONE; +NOVOLIN 70100 UNIT/3; +NOVOLOG100 UNIT/1 SC; +ONDANSETRON HCL INJ 2MG/ML 2ML 2 MG/ML VIAL ONE; +PROPOFOL IV EMULSION 10 MG/ML 20 ML VIAL ONE; +SEVOFLURANE INHAL SOLN 250 ML PEN BTL ONE; +VASEPA
[2019-10-14 10:04] VITALS: BP 132/77
--- NOTE | 2019-10-14 20:21 | Operative Report ---
DATE OF PROCEDURE: 10/14/2019 SURGEON: Sandoval Nina DPM PREOPERATIVE DIAGNOSES: 1. Ankle joint synovitis, right ankle. 2. Ruptured anterior talofibular ligament, right foot. 3. Ruptured peroneal tendon, right foot. POSTOPERATIVE DIAGNOSES: 1. Ankle joint synovitis, right ankle. 2. Ruptured anterior talofibular ligament, right foot. 3. Ruptured peroneal tendon, right foot. NAME OF THE OPERATION: 1. Ankle joint arthroscopy, right foot. 2. Repair of the anterior talofibular ligament, right foot. 3. Repair of the ruptured peroneal tendon, right foot. ANESTHESIA: General endotracheal. HEMOSTASIS: A right thigh tourniquet at 350 mmHg. PROCEDURE IN DETAIL: The patient was taken to the operating room in a mildly sedated state and placed on the operating table in supine position. Following induction of general anesthetic, the right lower extremity was elevated to 60 degrees to exsanguinate before inflating the pneumatic thigh tourniquet to 350 mmHg for good hemostasis. The right lower extremity was placed on the operating table prior to performing following procedure. Procedure #1: Ankle joint arthroscopy of the right foot. An approximate 20 mL of saline solution was injected into the right ankle to distract the ankle joint itself. It was distracted and arthroscopy was initiated. The arthroscopic flow was set to 60 mmHg and the ankle joint was explored with both medial and lateral gutters noted to have significant hypertrophic synovium all of which was debrided. There was a plica laterally which was debrided as well. There was a significant amount of scarring from the previous anterior talofibular ligament, which was also abraded and cleaned the way. The ankle joint was otherwise in adequate condition and although there is some mild degenerative joint disease, it is not felt to be severe at this point. That area was then irrigated and closed with 4-0 nylon. Attention was then directed to the lateral aspect of the foot and ankle complex for repair of the ruptured anterior talofibular ligament. The patient previously had a secondary repair or modified SELVIN, the which had attenuated. The patient also had a ruptured peroneal tendon. The area where the anterior talofibular ligament was recreated with a split Proteus brevis, tendon was evaluated and reefed up utilizing a 3.7 Arthrex anchor [employer]. This was done under fluoroscopy with the appropriate positioning. This having been accomplished, the area was then irrigated and closed with 3-0 Vicryl, 4-0 nylon. Attention was then directed to the area of the ruptured peroneal tendon. A separate 6 cm incision was placed and that peroneal tendon was identified and noted to be ruptured. The central core of the rupture was debrided and the tendon was reapproximated and repaired with remaining 3-0 Vicryl suture. The area was irrigated with copious amounts of sterile saline solution. The appropriate wrap of the tendon with a human tissue allograft was then performed. This wrap circumscribed the area of the repair to prevent adhesions and scar tissue and improve the viability of the wrap and repair. The deep closure was 3-0 Vicryl, subcutaneous closure with 4-0 Vicryl, and skin closure 4-0 nylon. The areas of surgery were all blocked with 0.5 Marcaine and Decadron [place], released the pneumatic thigh tourniquet showed a normal hyperemic flush to all digits of the right foot. The patient left the operating room with vital signs stable in apparent satisfactory condition, having tolerated both anesthetic and procedure very well. OSWALD Laboy/DEVAN /[id number]
== END | disposition home or self-care (01) ==
LOC: OR 05:15
PROVIDERS: ATTEND Podiatrist Foot Surgery
DX: S96.811A Strain of other specified muscles and tendons at ankle and foot level, right foot, initial encounter (principal); M65.871 Other synovitis and tenosynovitis, right ankle and foot; M19.071 Primary osteoarthritis, right ankle and foot; G47.33 Obstructive sleep apnea (adult) (pediatric); I45.10 Unspecified right bundle-branch block; J44.9 Chronic obstructive pulmonary disease, unspecified; E11.22 Type 2 diabetes mellitus with diabetic chronic kidney disease; N18.9 Chronic kidney disease, unspecified; I34.1 Nonrheumatic mitral (valve) prolapse; I25.10 Atherosclerotic heart disease of native coronary artery without angina pectoris; F43.10 Post-traumatic stress disorder, unspecified; X58.XXXA Exposure to other specified factors, initial encounter; Z88.6 Allergy status to analgesic agent; Z88.1 Allergy status to other antibiotic agents; Z01.810 Encounter for preprocedural cardiovascular examination; Z01.812 Encounter for preprocedural laboratory examination; Z01.818 Encounter for other preprocedural examination; Z11.59 Encounter for screening for other viral diseases; Z79.4 Long term (current) use of insulin; Z79.02 Long term (current) use of antithrombotics/antiplatelets; Z86.73 Personal history of transient ischemic attack (TIA), and cerebral infarction without residual deficits; Z98.61 Coronary angioplasty status
CPT/HCPCS: 28200 ×2; 29898; 36415 ×2; 71046; 80048; 82948; 85025; 93005; C1713; J0690; J1100; J1885; J2001; J2405; J2704; J2710; J3010; U0002; V2790; 76000; J1170

== ENCOUNTER → 2020-05-14 | Outpatient (CLI) | payer MEDICARE, BC ==
[~2020-05-14] MED LIST changes: -BUPIVACAINE HCL 0.5% INJ 30 ML VIAL INJ ONE; -CEFAZOLIN SOD 1 GM/NS 50ML 100 ML IV ONE; -DEXAMETHASONE SOD PHOS INJ 4 MG/ML VIAL ONE; -EPHEDRINE SULFATE INJ 50 MG/ML VIAL ONE; -FENTANYL CITRATE/PF 100MCG/2 ML INJ ONE; -HYDROMORPHONE 1MG/1ML INJ ONE; -KETOROLAC TROMETHAMINE 30 MG/ML VIAL ONE; -LIDOCAINE HCL 2% LOCAL INJ 5 ML SDV VIAL INJ ONE; -NEOSTIGMINE 1 MG/ML 10ML VIAL ONE; -ONDANSETRON HCL INJ 2MG/ML 2ML 2 MG/ML VIAL ONE; -PROPOFOL IV EMULSION 10 MG/ML 20 ML VIAL ONE; -SEVOFLURANE INHAL SOLN 250 ML PEN BTL ONE
== END ==
LOC: CT 15:13
PROVIDERS: ATTEND Internal Medicine Pulmonary Disease
DX: J98.4 Other disorders of lung (principal)
CPT/HCPCS: 71250

== ENCOUNTER → 2020-10-31 | Outpatient (CLI) | payer MEDICARE, BC ==
[~2020-10-31] MED LIST changes: +IOPAMIDOL 370 MG/ML 200 ML INFUS..BTL INJ ONE; +SODIUM CHLORIDE 0.9% 500ML 500 ML ONE; +SODIUM CHLORIDE 0.9% 50ML 50 ML ONE
== END ==
LOC: CT 16:27
PROVIDERS: ATTEND Internal Medicine Gastroenterology
DX: R10.84 Generalized abdominal pain (principal); R11.0 Nausea
CPT/HCPCS: 74177; J7040; Q9967

== ENCOUNTER → 2021-09-27 | Outpatient (CLI) | payer MEDICARE, BC ==
[~2021-09-27] MED LIST changes: -IOPAMIDOL 370 MG/ML 200 ML INFUS..BTL INJ ONE; -SODIUM CHLORIDE 0.9% 500ML 500 ML ONE; -SODIUM CHLORIDE 0.9% 50ML 50 ML ONE
== END ==
LOC: RAD 09:59
PROVIDERS: ATTEND Family Medicine
DX: J40 Bronchitis, not specified as acute or chronic (principal)
CPT/HCPCS: 71046

== ENCOUNTER 2022-01-03 15:36 | Inpatient (IN) | payer MEDICARE, BC ==
[~2022-01-03] VITALS: Ht 177.8 cm; Wt 106.1 kg
[2022-01-03] MEDS ORDERED: SODIUM CHLORIDE 0.9% 500ML 500 ML IV ONE (16:30)
[2022-01-03 16:52] LABS: BASOPHILS % 0.4 % (0.0-1.0); EOSINOPHILS # (AUTO) 0.3 (0.0-0.4); EOSINOPHILS % 2.9 % (0.0-6.0); HEMATOCRIT 47.1 % (38.2-49.6); HEMOGLOBIN 15.4 g/dL (14.0-18.0); LYMPHOCYTES # (AUTO) 1.6 (1.0-3.2); LYMPHOCYTES % 17.3 % (18.0-39.1); MEAN CORPUSCULAR HGB CONC 32.7 g/dL (31-35); MEAN CORPUSCULAR VOLUME 91.6 fL (81-99); MONOCYTES # (AUTO) 0.8 (0.2-0.8); MONOCYTES % 8.1 % (4.4-11.3); NEUTROPHILS # (AUTO) 6.6 (2.1-6.9); NEUTROPHILS % 70.7 % (38.7-80.0); PLATELET COUNT 214 x10e3/uL (140-360); RED BLOOD COUNT 5.14 x10e6/uL (4.3-5.7); RED CELL DISTRIBUTION WIDTH 13.1 % (11.7-14.4)
[2022-01-03 17:01] LABS: INR 1.12; PROTHROMBIN TIME 15.4 seconds (11.9-14.5)
[2022-01-03 17:02] LABS: PARTIAL THROMBOPLASTIN TIME 39.2 seconds (23.8-35.5)
[2022-01-03 17:08] LABS: ALANINE AMINOTRANSFERASE 21 IU/L (0-55); ALBUMIN 4.1 g/dL (3.5-5.0); ALBUMIN/GLOBULIN RATIO 1.2 (0.8-2.0); ALKALINE PHOSPHATASE 61 IU/L (40-150); ANION GAP 15.7 mmol/L (8-16); BLOOD UREA NITROGEN 24 mg/dL (7-26); BUN/CREATININE RATIO 13 (6-25); CALCIUM 9.5 mg/dL (8.4-10.2); CARBON DIOXIDE 26 mmol/L (22-29); CHLORIDE 98 mmol/L (98-107); CREATININE, SERUM 1.85 mg/dL (0.72-1.25); GLUCOSE 128 mg/dL (74-118); POTASSIUM 4.7 mmol/L (3.5-5.1); SODIUM 135 mmol/L (136-145)
[2022-01-03] MEDS ORDERED: SODIUM CHLORIDE FLUSH 10 ML SYR INJ PRN (17:15)
[2022-01-03] MEDS: SODIUM CHLORIDE 0.9% 1000ML 1,000 ML IV SCH (18:21)
[2022-01-03] MEDS ORDERED: LORATADINE/PSEUDOEPHEDRINE 24 HR SR TAB PO PRN (22:15)
[2022-01-03] MEDS ORDERED: ALBUTEROL SULF 0.083% NEB SOLN 3 ML NEB INH PRN (22:15)
[2022-01-03] MEDS ORDERED: DEXTROSE 50% SYRINGE 50 ML IV PRN (22:15)
[2022-01-03 22:40] VITALS: BP 127/88
[2022-01-03] MEDS ORDERED: CLOPIDOGREL75 MG PO (22:56)
[2022-01-04] VITALS (12 sets, daily range): BP systolic 106–147; BP diastolic 60–94
[2022-01-04 06:07] LABS: BASOPHILS # (AUTO) 0.1 (0.0-0.1); BASOPHILS % 0.6 % (0.0-1.0); EOSINOPHILS # (AUTO) 0.4 (0.0-0.4); EOSINOPHILS % 4.4 % (0.0-6.0); HEMATOCRIT 43.9 % (38.2-49.6); HEMOGLOBIN 14.8 g/dL (14.0-18.0); LYMPHOCYTES # (AUTO) 2.4 (1.0-3.2); LYMPHOCYTES % 28.1 % (18.0-39.1); MEAN CORPUSCULAR HEMOGLOBIN 29.9 pg (28-32); MEAN CORPUSCULAR HGB CONC 33.7 g/dL (31-35); MEAN CORPUSCULAR VOLUME 88.7 fL (81-99); NEUTROPHILS # (AUTO) 4.6 (2.1-6.9); NEUTROPHILS % 54.3 % (38.7-80.0); PLATELET COUNT 202 x10e3/uL (140-360); RED BLOOD COUNT 4.95 x10e6/uL (4.3-5.7); RED CELL DISTRIBUTION WIDTH 13.1 % (11.7-14.4)
[2022-01-04 07:29] LABS: CREATINE KINASE MB 2.1 ng/mL (0-5.0)
[2022-01-04] MEDS: INSULIN REGULAR, HUMAN 100 UNIT/1 ML SQ SCH ×4 (07:30→20:24)
[2022-01-04] MEDS: MIDODRINE 2.5 MG TAB PO SCH ×3 (08:00→16:00)
[2022-01-04 08:42] LABS: CALCIUM 9.1 mg/dL (8.4-10.2); CREATININE, SERUM 1.4 mg/dL (0.72-1.25)
[2022-01-04] MEDS ORDERED: APIXABAN 5 MG TABLET PO ONE (09:00)
[2022-01-04] MEDS: RANOLAZINE 500 MG TABSR PO SCH ×2 (09:03→16:49)
[2022-01-04] MEDS: ATORVASTATIN 20 MG TAB PO SCH (09:04)
[2022-01-04] MEDS: CLOPIDOGREL BISULFATE 75 MG TAB PO SCH (09:04)
[2022-01-04] MEDS: SODIUM CHLORIDE 0.9% 1000ML 1,000 ML IV SCH ×2 (09:05→20:23)
[2022-01-04] MEDS: ONDANSETRON HCL INJ 2MG/ML 2ML 2 MG/ML VIAL IV PRN ×4 (11:05→21:11)
[2022-01-04 15:19] LABS: CREATINE KINASE MB 2.3 ng/mL (0-5.0)
[2022-01-04] MEDS ORDERED: MIDODRINE 2.5 MG TAB PO SCH (16:00)
[2022-01-04] MEDS: ALPRAZOLAM 0.5 MG TAB PO SCH (16:48)
[2022-01-04] MEDS: APIXABAN 5 MG TABLET PO SCH (16:48)
[2022-01-04 22:48] LABS: CREATINE KINASE MB 1.8 ng/mL (0-5.0)
[2022-01-05] VITALS (11 sets, daily range): BP systolic 108–158; BP diastolic 62–104
[2022-01-05 07:02] LABS: BASOPHILS # (AUTO) 0.1 (0.0-0.1); BASOPHILS % 0.6 % (0.0-1.0); EOSINOPHILS # (AUTO) 0.3 (0.0-0.4); EOSINOPHILS % 3.1 % (0.0-6.0); HEMATOCRIT 43.8 % (38.2-49.6); HEMOGLOBIN 14.5 g/dL (14.0-18.0); LYMPHOCYTES # (AUTO) 2.3 (1.0-3.2); LYMPHOCYTES % 27.6 % (18.0-39.1); MEAN CORPUSCULAR HGB CONC 33.1 g/dL (31-35); MEAN CORPUSCULAR VOLUME 90.7 fL (81-99); MONOCYTES # (AUTO) 0.8 (0.2-0.8); MONOCYTES % 9.7 % (4.4-11.3); NEUTROPHILS # (AUTO) 4.9 (2.1-6.9); NEUTROPHILS % 58.6 % (38.7-80.0); PLATELET COUNT 194 x10e3/uL (140-360); RED BLOOD COUNT 4.83 x10e6/uL (4.3-5.7); RED CELL DISTRIBUTION WIDTH 12.9 % (11.7-14.4)
[2022-01-05] MEDS: INSULIN REGULAR, HUMAN 100 UNIT/1 ML SQ SCH ×4 (07:09→20:54)
[2022-01-05] MEDS: MIDODRINE 2.5 MG TAB PO SCH ×3 (08:00→16:00)
[2022-01-05] MEDS: CLOPIDOGREL BISULFATE 75 MG TAB PO SCH (08:46)
[2022-01-05] MEDS: APIXABAN 5 MG TABLET PO SCH ×2 (08:46→16:30)
[2022-01-05] MEDS: RANOLAZINE 500 MG TABSR PO SCH ×2 (08:47→16:31)
[2022-01-05] MEDS: ATORVASTATIN 20 MG TAB PO SCH (08:47)
[2022-01-05] MEDS: ALPRAZOLAM 0.5 MG TAB PO SCH ×2 (08:48→16:30)
[2022-01-05] MEDS: SODIUM CHLORIDE 0.9% 1000ML 1,000 ML IV SCH ×2 (09:59→21:44)
[2022-01-05 10:29] LABS: ANION GAP 18.5 mmol/L (8-16); CALCIUM 9.1 mg/dL (8.4-10.2); CREATININE, SERUM 1.15 mg/dL (0.72-1.25); POTASSIUM 4.5 mmol/L (3.5-5.1)
[2022-01-05] MEDS: ONDANSETRON HCL INJ 2MG/ML 2ML 2 MG/ML VIAL IV PRN ×2 (11:58→15:50)
[2022-01-06] VITALS: BP 136/72
[2022-01-06 04:00] VITALS: BP_SYST 120; BP_SYST 121; BP_SYST 125; BP_DIAS 85; BP_DIAS 87; BP_DIAS 88
[2022-01-06] MEDS: INSULIN REGULAR, HUMAN 100 UNIT/1 ML SQ SCH (07:30)
[2022-01-06] MEDS ORDERED: MIDODRINE HCL2.5 MG PO (07:31)
[2022-01-06] MEDS ORDERED: BENICAR5 MG PO (07:31)
[2022-01-06 08:00] VITALS: BP 145/80
[2022-01-06] MEDS: MIDODRINE 2.5 MG TAB PO SCH (08:00)
[2022-01-06] MEDS: CLOPIDOGREL BISULFATE 75 MG TAB PO SCH (08:51)
[2022-01-06] MEDS: APIXABAN 5 MG TABLET PO SCH (08:51)
[2022-01-06] MEDS: RANOLAZINE 500 MG TABSR PO SCH (08:51)
[2022-01-06] MEDS: ALPRAZOLAM 0.5 MG TAB PO SCH (08:51)
[2022-01-06] MEDS: ATORVASTATIN 20 MG TAB PO SCH (08:52)
[2022-01-06 09:53] VITALS: BP 145/80
== END 2022-01-06 10:14 | disposition home or self-care (01) | DRG 684 ==
LOC: ER 15:56 → ERHOLD 17:04 → MED/SURG3 22:03
PROVIDERS: ADMIT Internal Medicine; ATTEND Internal Medicine
DX: N17.9 Acute kidney failure, unspecified (principal); I48.0 Paroxysmal atrial fibrillation; Z79.01 Long term (current) use of anticoagulants; I25.10 Atherosclerotic heart disease of native coronary artery without angina pectoris; Z95.5 Presence of coronary angioplasty implant and graft; Z86.73 Personal history of transient ischemic attack (TIA), and cerebral infarction without residual deficits; J44.9 Chronic obstructive pulmonary disease, unspecified; Z20.822 Contact with and (suspected) exposure to COVID-19; I95.1 Orthostatic hypotension; Z87.891 Personal history of nicotine dependence; E78.5 Hyperlipidemia, unspecified; Z88.6 Allergy status to analgesic agent; Z88.1 Allergy status to other antibiotic agents; Z88.5 Allergy status to narcotic agent; E11.69 Type 2 diabetes mellitus with other specified complication
CPT/HCPCS: 0223U; 36415; 70450; 71250; 72125; 80048; 80053; 80061; 82550; 82553; 82948; 83036; 84484; 85025; 85610; 85730; 93005; 93306; 99284; J2405; J7030; J7040

== ENCOUNTER → 2024-04-04 | Day surgery (SDC) | payer MEDICARE, BC ==
[2024-04-01 12:41] LABS: BASOPHILS % 0.4 % (0.0-1.0); EOSINOPHILS # (AUTO) 0.2 (0.0-0.4); EOSINOPHILS % 3.3 % (0.0-6.0); HEMATOCRIT 44.2 % (38.2-49.6); HEMOGLOBIN 14.1 g/dL (14.0-18.0); LYMPHOCYTES # (AUTO) 1.7 (1.0-3.2); MEAN CORPUSCULAR HEMOGLOBIN 29.9 pg (28-32); MEAN CORPUSCULAR HGB CONC 31.9 g/dL (31-35); MEAN CORPUSCULAR VOLUME 93.6 fL (81-99); MONOCYTES # (AUTO) 0.7 (0.2-0.8); MONOCYTES % 9.2 % (4.4-11.3); NEUTROPHILS # (AUTO) 4.6 (2.1-6.9); PLATELET COUNT 173 x10e3/uL (140-360); RED BLOOD COUNT 4.72 x10e6/uL (4.3-5.7); RED CELL DISTRIBUTION WIDTH 13.1 % (11.7-14.4); WHITE BLOOD COUNT 7.26 x10e3/uL (4.8-10.8)
[2024-04-01 12:52] LABS: INR 1.13; PROTHROMBIN TIME 15.2 seconds (11.9-14.5)
[2024-04-01 12:53] LABS: PARTIAL THROMBOPLASTIN TIME 34.3 seconds (23.8-35.5)
[~2024-04-04] MED LIST changes: +ACETAMINOPHEN 1000 MG/100 ML 100 ML IV ONE; +BENICAR5 MG PO; +CLOPIDOGREL75 MG PO; +DEXAMETHASONE SOD PHOS INJ 4 MG/ML SDV ONE; +ELIQUIS5 MG PO; +FENTANYL CITRATE/PF 100MCG/2 ML INJ ONE; +HYGROTON25 MG PO; +ISOSORBIDE MONO30 MG PO; +LIDOCAINE HCL 2% LOCAL INJ 5 ML SDV VIAL INJ ONE; +METOPROLOL TART25 MG PO; +MIDODRINE HCL2.5 MG PO; +NEURONTIN100 MG PO; +ONDANSETRON HCL INJ 2MG/ML 2ML 2 MG/ML VIAL ONE; +PANTOPRAZOLE SO20 MG; +PROPOFOL IV EMULSION 10 MG/ML 20 ML VIAL ONE; +SEVOFLURANE INHAL SOLN 250 ML PEN BTL ONE; +VASCEPA1 GM
[2024-04-04] MEDS: LACTATED RINGER'S 1,000 ML ONE (11:55)
[2024-04-04 13:04] VITALS: TEMP 97.9
[2024-04-04] MEDS: FENTANYL CITRATE/PF 100MCG/2 ML INJ ONE (13:15)
[2024-04-04] MEDS: HYDROMORPHONE 1MG/1ML INJ ONE (13:28)
[2024-04-04] MEDS: KETOROLAC TROMETHAMINE 30 MG/ML VIAL ONE (13:55)
[2024-04-04 14:20] VITALS: BP 150/70; PULSE 60; RESP 16; O2SAT 98
== END | disposition home or self-care (01) ==
LOC: OR 11:03
PROVIDERS: ATTEND Specialist
DX: G56.03 Carpal tunnel syndrome, bilateral upper limbs (principal); M65.332 Trigger finger, left middle finger; M65.331 Trigger finger, right middle finger; K76.89 Other specified diseases of liver; J44.9 Chronic obstructive pulmonary disease, unspecified; I10 Essential (primary) hypertension; E78.5 Hyperlipidemia, unspecified; I25.10 Atherosclerotic heart disease of native coronary artery without angina pectoris; K21.9 Gastro-esophageal reflux disease without esophagitis; E11.9 Type 2 diabetes mellitus without complications; I49.9 Cardiac arrhythmia, unspecified; F41.9 Anxiety disorder, unspecified; Z88.6 Allergy status to analgesic agent; Z88.1 Allergy status to other antibiotic agents; Z01.812 Encounter for preprocedural laboratory examination; Z79.84 Long term (current) use of oral hypoglycemic drugs; Z79.02 Long term (current) use of antithrombotics/antiplatelets; Z79.4 Long term (current) use of insulin; Z79.899 Other long term (current) drug therapy; Z95.5 Presence of coronary angioplasty implant and graft; Z86.73 Personal history of transient ischemic attack (TIA), and cerebral infarction without residual deficits
CPT/HCPCS: 26055 ×2; 29848; 36415; 85025; 85610; 85730; J0131; J0690; J1100; J1171; J1885; J2003; J2405; J2704; J3010; J7121